=== PATIENT | male | born 1940 | race Caucasian/White ===

== ENCOUNTER 2023-08-12 06:47 | Outpatient (OUT) | payer MEDICARE, SELFPAY ==
[2023-08-12 07:02] LABS: Basophils Percent Auto 0.3 % (0.2-2.0); Eosinophils Absolute Auto 0.2 10^3/uL (0.0-0.7); Eosinophils Percent Auto 1.5 % (0.9-7.0); Hematocrit 48.7 % (42.0-54.0); Hemoglobin 16.2 g/dL (14.0-18.0); Immature Granulocytes Abs Auto 0.06 10^3/uL (0.00-0.03); Immature Granulocytes Pct Auto 0.5 % (0.0-0.5); Lymphocytes Absolute Auto 3.8 10^3/uL (1.2-3.8); Lymphocytes Percent Auto 32.4 % (20.5-60.0); Mean Corpuscular HGB Conc 33.3 g/dL (29.9-35.2); Mean Corpuscular Hemoglobin 32.3 pg (25.9-34.0); Mean Corpuscular Volume 97.2 fL (80.0-94.0); Monocytes Absolute Auto 0.9 10^3/uL (0.3-0.8); Monocytes Percent Auto 7.5 % (1.7-12.0); Neutrophils Absolute Auto 6.8 10^3/uL (1.4-6.5); Neutrophils Percent Auto 57.8 % (43.0-75.0); Platelet Count 233 10^3/uL (150-450); Red Blood Count 5.01 10^6/uL (4.70-6.10); Red Cell Distribution Width 13.2 % (11.0-15.0); White Blood Count 11.7 10^3/uL (4.0-11.0)
--- NOTE | 2023-08-12 07:03 | MR_ITS ---
[place] [id number] Patient Name: DAISY CARBAJAL MRN: [id number] date: 1940 Sex: M Assigned Patient Location: LAB Current Patient Location: LAB Accession/Order Number: [id number] Exam Date: 08/12/2023 07:10 Report Date: 08/12/2023 10:04 At the request of: JESSICA INIGUEZ Procedure: MR head/brain wo con MRI BRAIN WITHOUT CONTRAST, 08/12/2023. HISTORY: Dizziness. COMPARISON: None. TECHNIQUE: Multiplanar, multisequence MRI imaging of the brain without contrast. FINDINGS: Mild mucosal thickening of the paranasal sinuses. Mastoid air cells are clear. Nasopharynx is normal. Second Mate spaces are normal. Prior cataract surgery. There is loss of the flow void of the left internal carotid artery. Moderate generalized brain atrophy. No hydrocephalus. No extraaxial fluid collection. No mass effect. No shift of midline. Chronic lacunar infarction involving the right basal ganglia and right de la cruz radiata measures 1.7 cm in diameter. Moderate chronic microvascular ischemic changes in the periventricular white matter. No diffusion restriction. No acute ischemic infarction. No hemorrhagic lesions. No masses. MR/MR head/brain wo con IMPRESSION: 1. 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 2. Moderate generalized brain atrophy. No hydrocephalus. 3. Chronic lacunar infarction in the right basal ganglia and de la cruz radiata. 4. No acute infarction. No masses. Electronically authenticated by: KAVITHA BORGES Date: 08/12/2023 10:04
--- NOTE | 2023-08-12 07:03 | CT_ITS ---
[address] [address] Patient Name: DAISY CARBAJAL MRN: [id number] date: 1940 Sex: M Assigned Patient Location: LAB Current Patient Location: LAB Accession/Order Number: [id number] Exam Date: 08/12/2023 08:10 Report Date: 08/12/2023 09:12 At the request of: JESSICA INIGUEZ Procedure: CT angio neck EXAMINATION: CT angio neck HISTORY: Near Syncope R55 COMPARISON: No relevant comparison available. TECHNIQUE: Multiplanar CT imaging without and with IV contrast. Multi-planar/3-D imaging to optimize visualization of vascular anatomy. Percent stenosis is based on NASCET criteria. Dose reduction techniques were achieved by using automated exposure control and/or adjustment of mA and/or kV according to patient size and/or use of iterative reconstruction technique. FINDINGS: RIGHT INTERNAL CAROTID: Marked atherosclerotic narrowing of bulb and proximal ICA. EXTERNAL CAROTID: No hemodynamically significant stenosis or dissection. COMMON CAROTID: No hemodynamically significant stenosis or dissection. VERTEBRAL: Moderate atherosclerotic narrowing of proximal artery near origin. LEFT INTERNAL CAROTID: Complete occlusion of proximal, mid, and distal portions. EXTERNAL CAROTID: No hemodynamically significant stenosis or dissection. COMMON CAROTID: No hemodynamically significant stenosis or dissection. VERTEBRAL: No hemodynamically significant stenosis or dissection. OTHER: Moderate-marked cervical disc narrowing at C5-6, C6-7 and multilevel mild degenerative facet arthropathy resulting in bone encroachment on the neural foramen and central canal. CT/CT angio neck IMPRESSION: 1. Marked atherosclerotic narrowing of right carotid bulb and proximal ICA. 2. Complete occlusion of left ICA. 3. Moderate atherosclerotic narrowing of proximal right vertebral artery. Electronically authenticated by: MIGUEL ARIZA Date: 08/12/2023 09:12
[2023-08-12 08:04] LABS: Alanine Aminotransferase 23 U/L (16-63); Albumin Globulin Ratio 1.1; Alkaline Phosphatase 90 U/L (46-116); Anion Gap 12.6; Aspartate Amino Transferase 20 U/L (15-37); BUN Creatinine Ratio 9.6; Bilirubin Total 0.7 mg/dL (0.2-1.0); Calcium 8.9 mg/dL (8.5-10.1); Carbon Dioxide 30.6 mmol/L (21.0-32.0); Chloride 106 mmol/L (98-107); Estimated GFR (African America >60 (>=60); Estimated GFR (Non-African Ame >60 (>=60); Free Thyroxine Index 2.48 (1.30-4.50); Globulin 3.5 g/dL; Glucose 102 mg/dL (74-106); Potassium 4.2 mmol/L (3.5-5.1); Sodium 145 mmol/L (136-145); Thyroid Stimulating Hormone 5.068 uIU/mL (0.358-3.740); Total Protein 7.5 g/dL (6.4-8.2)
--- NOTE | 2023-08-12 08:43 | CA_ITS ---
[facility] Test Date: 2023-08-26 Pat Name: DAISY CARBAJAL Department: Room: - Gender: Male [employer]: : 1940 Requested By: JESSICA INIGUEZ Order Number: [id number] Reading MD: JANEL PANDA Interpretive Statements Predominant rhythm is atrial fibrillation with average rate of 81 bpm Tachycardia - max rate of 222 bpm Bradycardia - min rate of 33 bpm Ventricular ectopy - 123,977 total (16%) - 72,632 PVC - 46,320 couplets - 1,043 bigeminy - 2,321 trigeminy NSVT - 508 episodes with longest episode of 13 beats Patient triggered events: none Impression: - predominant rhythm is atrial fibrillation with frequent ventricular ectopy - fastest rate of 222 (NSVT) and slowest rate of 33 bpm - 123,977 ventricular ectopy w/ 16% burden - 508 episodes of NSVT w/ longest episode of 13 beats Electronically Signed On 08-27-2023 7:10:22 EDT by JANEL PANDA
== END 2023-08-12 06:48 | disposition home or self-care (01) ==
LOC: LAB 06:48
PROVIDERS: PCP Family Medicine; Visit Provider Family Medicine
DX: R55 Syncope and collapse (principal); I11.0 Hypertensive heart disease with heart failure; I50.30 Unspecified diastolic (congestive) heart failure; I65.22 Occlusion and stenosis of left carotid artery; I67.2 Cerebral atherosclerosis; I65.21 Occlusion and stenosis of right carotid artery
CPT/HCPCS: 36415; 70498; 70551; 80053; 83880; 84436; 84443; 84479; 85025; 93246; Q9967

== ENCOUNTER 2023-08-21 13:38 | Outpatient (OUT) | payer MEDICARE, SELFPAY ==
--- NOTE | 2023-08-21 14:12 | US_ITS ---
[place] [id number] Patient Name: DAISY CARBAJAL MRN: [id number] date: 1940 Sex: M Assigned Patient Location: CARD Current Patient Location: Accession/Order Number: [id number] Exam Date: 08/21/2023 14:30 Report Date: 08/24/2023 10:16 At the request of: ADEN MUNGUIA Procedure: US carotid duplex BI EXAMINATION: US carotid duplex BI HISTORY: Bilateral Carotid Stenosis, Near Syncope COMPARISON: CTA neck 08/12/2023 TECHNIQUE: Duplex Doppler ultrasound analysis of carotid and vertebral arteries. . Bilateral carotid arterial duplex examination was performed using B-mode, color flow and spectral analysis. Carotid stenosis is reported according to validated velocity parameters, similar to NASCET criteria. FINDINGS: RIGHT CAROTID ARTERY: Marked narrowing of internal carotid artery secondary to atherosclerotic plaque. RIGHT VERTEBRAL: Antegrade flow. Subclavian: PSV: 63.6 cm/s EDV: 0.0 cm/s CCA: Prox: PSV: 53.7 cm/s EDV: 15.3 cm/s Mid: PSV: 51.5 cm/s EDV: 20.8 cm/s Distal: PSV: 47.6 cm/s EDV: 20.6 cm/s BULB: PSV: 41.2 cm/s EDV: 14.2 cm/s ICA: Prox: PSV: 89.2 cm/s EDV: 32.2 cm/s Mid: PSV: 174.0 cm/s EDV: 64.8 cm/s Distal: PSV: 115.9 cm/s EDV: 46.2 cm/s ECA: PSV: 52.6 cm/s EDV: 10.9 cm/s VERTEBRAL: PSV: 36.2 cm/s EDV: 17.0 cm/s ICA/CCA ratio: PSV: 3.7 EDV: 3.2 LEFT CAROTID ARTERY: Complete occlusion of internal carotid artery secondary to atherosclerotic plaque. LEFT VERTEBRAL: Antegrade flow. Subclavian: PSV: 93.5 cm/s EDV: 6.6 cm/s CCA: Prox: PSV: 37.0 cm/s EDV: 6.4 cm/s Mid: PSV: 36.5 cm/s EDV: 6.9 cm/s Distal: PSV: 29.9 cm/s EDV: 6.9 cm/s BULB: PSV: 97.4 cm/s EDV: 9.5 cm/s ICA: Prox: PSV: 0.0 cm/s EDV: 0.0 cm/s Mid: PSV: EDV: Distal: PSV: EDV: ECA: PSV: 90.1 cm/s EDV: 11.1 cm/s VERTEBRAL: PSV: 55.1 cm/s EDV: 20.2 cm/s ICA/CCA ratio: PSV: 3.3 EDV: 1.4 US/US carotid duplex BI IMPRESSION: 1. Marked atherosclerotic narrowing of right internal carotid artery. Suspect greater than 70% flow stenosis. 2. 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 3. Findings correspond with recent CTA neck 08/12/2023. Electronically authenticated by: MIGUEL ARIZA Date: 08/24/2023 10:16
--- NOTE | 2023-08-21 14:12 | CA_ITS ---
Patient: DAISY CARBAJAL Exam Date: 08/21/2023 : 1940 Gender:M Ordering : DR TAHIR CHAVES M.D. Admission #: [id number] Family : JESSICA INIGUEZ . Order #: [id number] CLICK HERE TO VIEW EXAM ECHOCARDIOGRAM REPORT PROCEDURE: CA ECHO DOPPLER COMPLETE INDICATIONS: Near syncope, atrial fibrillation COMPARISON: None. DESCRIPTION: COMPLETE ECHOCARDIOGRAM Real-time transthoracic echocardiography with 2D, M-mode, spectral and color flow Doppler performed. QUALITY: Technical quality was adequate. LEFT VENTRICLE: Mild dilatation. Mild concentric left ventricular hypertrophy. There is global hypokinesis and severely reduced systolic function. LV EF: Severely reduced left ventricular ejection fraction, (25%). DIASTOLIC: Not adequately assessed due to heart rhythm. ATRIAL SEPTUM: Visually appears intact. LEFT ATRIUM: Moderate dilatation. RIGHT ATRIUM: Mild dilatation. RIGHT VENTRICLE: Mild dilatation. Normal systolic function. TRICUSPID VALVE: Normal mobility and thickness. No stenosis with trivial regurgitation. Doppler studies reveal mildly (35-45) elevated right sided pressures. RVSP 43 mmHg MITRAL VALVE: Normal mobility and thickness. No evidence of mitral valve stenosis. Mild mitral annular calcification. Mild mitral regurgitation. AORTIC VALVE: Normal trileaflet appearance. Thickened aortic valve. Normal leaflet mobility. No evidence of aortic valve stenosis. No aortic regurgitation. AORTIC ROOT: Normal diameter and appearance. PULMONIC VALVE: Normal thickness and mobility. No stenosis. No regurgitation. PERICARDIUM: No evidence of pericardial effusion. IVC: Normal in size. Collapses with inspirations. PLEURA: CONCLUSION: 1. Mild concentric left ventricular hypertrophy with severely reduced systolic function. LVEF is 25%. 2. Mildly dilated right ventricle with normal systolic function. 3. No significant valvular dysfunction. 4. Mild to moderate biatrial dilatation. 5. Mildly elevated right-sided pressures. RVSP is 43 mmHg. 6. The patient appears to be in atrial fibrillation during the exam. Adult Echocardiography Procedure Report Left Ventricle LVEDD (3.7 - 5.6 cm): 6.00 cm LVESD (2.2 - 4.0 cm): 4.76 cm LVIVS thickness (0.6 - 1.2 cm): 1.07 cm LVPW thickness (0.5 - 1.0 cm): 1.14 cm LVOT Max Gradient: 1.40 mm[Hg] LVOT Area (cm2): 0.59 m/s Peak Velocity (LVOT): 0.59 m/s LVOT Diameter 2.43 cm Left Atrium LA Volume Index (2D A2C): 64.36 ml/m2 Left Atrium Systolic Dimension: 4.49 cm Mitral Valve Mitral Valve E-Wave Peak Velocity: 0.97 m/s Right Ventricle Aorta AO Root Diam: 2.91 cm Aortic Valve AoV Area (Peak Reynaldo): 2.07 cm2, 2.07 cm2 Peak Velocity(Antegrade Flow): 1.32 m/s Peak Gradient(Antegrade Flow): 7.00 mm[Hg] Tricuspid Valve Peak Velocity (Regurgitant Flow): 3.18 m/s Pulmonic Valve Peak Velocity: 0.59 m/s Peak Gradient: 1.78 mm[Hg], 1.04 mm[Hg] Right Atrium Right Atrium Systolic Pressure: 85.31 ml, 85.31 ml Dictated by: Tahir Chaves M.D. on 08/21/2023 at 17:27 Approved by: Tahir Chaves M.D. on 08/21/2023 at 17:34
== END 2023-08-21 13:39 | disposition home or self-care (01) ==
LOC: CARD 13:38
PROVIDERS: PCP Family Medicine; Visit Provider Internal Medicine Interventional Cardiology
DX: R55 Syncope and collapse (principal); I65.23 Occlusion and stenosis of bilateral carotid arteries
CPT/HCPCS: 93306; 93880

== ENCOUNTER 2023-10-01 09:28 | Outpatient (OUT) | payer MEDICARE, SELFPAY ==
[2023-10-01 09:43] LABS: Basophils Percent Auto 0.3 % (0.2-2.0); Eosinophils Absolute Auto 0.2 10^3/uL (0.0-0.7); Eosinophils Percent Auto 1.5 % (0.9-7.0); Hematocrit 49.4 % (42.0-54.0); Hemoglobin 16.3 g/dL (14.0-18.0); Immature Granulocytes Abs Auto 0.03 10^3/uL (0.00-0.03); Immature Granulocytes Pct Auto 0.2 % (0.0-0.5); Lymphocytes Percent Auto 33.2 % (20.5-60.0); Mean Corpuscular Hemoglobin 31.9 pg (25.9-34.0); Mean Corpuscular Volume 96.7 fL (80.0-94.0); Mean Platelet Volume 10.9 fL (9.5-13.5); Monocytes Absolute Auto 0.9 10^3/uL (0.3-0.8); Neutrophils Percent Auto 57.8 % (43.0-75.0); Platelet Count 239 10^3/uL (150-450); Red Blood Count 5.11 10^6/uL (4.70-6.10); Red Cell Distribution Width 12.9 % (11.0-15.0); White Blood Count 12.1 10^3/uL (4.0-11.0)
[2023-10-01 10:00] LABS: Anion Gap 11.4; BUN Creatinine Ratio 7.8; Calcium 8.7 mg/dL (8.5-10.1); Carbon Dioxide 31.2 mmol/L (21.0-32.0); Chloride 104 mmol/L (98-107); Estimated GFR (African America >60 (>=60); Estimated GFR (Non-African Ame >60 (>=60); Glucose 104 mg/dL (74-106); Potassium 4.6 mmol/L (3.5-5.1); Sodium 142 mmol/L (136-145)
== END 2023-10-01 09:29 | disposition home or self-care (01) ==
LOC: LAB 09:29
PROVIDERS: PCP Family Medicine; Visit Provider Internal Medicine Interventional Cardiology
DX: I65.23 Occlusion and stenosis of bilateral carotid arteries (principal)
CPT/HCPCS: 36415; 80048; 85025

== ENCOUNTER 2023-11-25 08:56 | Outpatient (OUT) | payer MEDICARE, SELFPAY ==
--- OUTSIDE RECORDS SUMMARY | 2023-11-25 09:04 | XMS_ITS | CCD ---
Author Name Unknown Address Formerly [facility] [address] [id number] [place] [address] Organization [facility] Care Team Providers Care Entry Clerk Name Role Phone VIVIANE SANTIAGO Consulting Unavailable JESSICA DELATORRE Primary Care Unavailable MIKE MURRAY Admitting Unavailable MIKE MURRAY Attending Unavailable MIKE MURRAY Consulting Unavailable ROHIT RAWLS I Consulting Unavailable PARVIZ ANNA Consulting Unavailable Jessica Delatorre Primary Care Provider [phone] GEETHA ., DR LOPEZ Attending Unavailable GEETHA ., DR LOPEZ Consulting Unavailable GEETHA ., DR LOPEZ Primary Care Unavailable GEETHA ., DR LOPEZ Admitting Unavailable ADEN MUNGUIA Referring Unavailable ADEN MUNGUIA Admitting Unavailable ADEN MUNGUIA Attending Unavailable ADEN MUNGUIA Admitting Unavailable ADEN MUNGUIA Attending Unavailable ADEN MUNGUIA Attending Unavailable MIKE CABRERA Attending Unavailable ADEN MUNGUIA Referring Unavailable Medications Current Medications Medication Drug Class(es) Dates Sig (Normalized) Sig (Original) acetaminophen 325 mg oral tablet (1 source) Start: 08-24-2020 acetaminophen (TYLENOL) tablet 650 mg albuterol 1 mg/ml inhalant solution (1 source) beta2-Adrenergic Agonist Start: 08-24-2020 albuterol (PROVENTIL) nebulizer solution 5 mg aspirin 81 mg chewable tablet (2 sources) Platelet Aggregation Inhibitor, Nonsteroidal Anti-inflammatory Drug Start: 08-27-2020 take 1 tablet by mouth once daily aspirin 81 MG chewable tablet Take 1 tablet by mouth daily 30 tablet 3 08/27/2020 Active Start: 08-26-2020 aspirin chewab le tablet 81 mg atorvastatin 80 mg oral tablet (2 sources) HMG-CoA Reductase Inhibitor Start: 08-25-2020 take 1 tablet by mouth once daily atorvastatin (LIPITOR) 80 MG tablet Take 1 tablet by mouth nightly 30 tablet 3 08/26/2020 Active 0.4 ml enoxaparin sodium 100 mg/ml prefilled syringe (1 source) Low Molecular Weight Heparin Start: 08-26-2020 enoxaparin (LOVENOX) injection 40 mg 4 ml labetalol hydrochloride 5 mg/ml cartridge (1 source) beta-Adrenergic Mariah Start: 08-25-2020 labetalol (NORMODYNE;TRANDATE) injection 10 mg perflutren lipid microspheres (DEFINITY) injection 1.65 mg (1 source) Start: 08-25-2020 1.65 mg (1.5 mL), Intravenous, IMG ONCE PRN, Other, Inability to detect 2 or more contiguous segments in any of the 3 apical views due to poor endocardial border definition, Starting 08/25/20 at 0700, For 1 dose Echocardiogram should first be performed without contrast and if exam is adequate then DO NOT administer the contrast and delete the order using Per Protocol order mode. If unable to detect 2 or more contiguous segments in any of the 3 apical views due to poor endocardial border definition, then assess patient for any contraindications to echo contrast and if none present administer the echo contrast. polyethylene glycol 3350 64718 mg powder for oral solution (1 source) Osmotic Laxative Start: 08-25-2020 17 g, Oral, DAILY PRN, Constipation, Starting 08/25/20 at 0700 First line therapy for constipation Promethazine (1 source) Phenothiazine Start: 08-25-2020 promethazine (PHENERGAN) tablet 12.5 mg 3 ml sodium chloride 9 mg/ml injection (3 sources) Start: 08-25-2020 10 mL, Intravenous, EVERY 12 HOURS SCHEDULED (2 times per day), First dose on 08/25/20 at 0900 Start: 08-25-2020 take 10 mL intraveno us route once as needed 10 mL, Intravenous, PRN, Line Care, After every IV line use, Starting 08/25/20 at 0700 Start: 08-24-2020 End: 08-26-2020 0.9 % sodium chloride infusi on Completed/Discontinued Medications Medication Drug Class(es) Dates Sig (Normalized) Sig (Original) clopidogrel 75 mg oral tablet (3 sources) P2Y12 Platelet Inhibitor Start: 08-27-2020 End: 08-26-2020 take 1 tablet by mouth once daily clopidogrel (PLAVIX) 75 MG tablet Take 1 tablet by mouth daily 30 tablet 3 08/27/2020 08/26/2020 Discontinued Start: 08-26-2020 End: 11-25-2020 take 1 tablet by mouth once daily clopidogrel (PLAVIX) 75 MG tablet Take 1 tablet by mouth daily 30 tablet 2 08/27/2020 11/25/2020 Active iodixanol (VISIPAQUE) injection 100 mL (1 source) Start: 08-24-2020 End: 08-24-2020 iodixanol (VISIPAQUE) injection 100 mL iopamidol (ISOVUE-370) 76 % injection 50 mL (1 source) Start: 08-24-2020 End: 08-24-2020 iopamidol (ISOVUE-370) 76 % injection 50 mL iopamidol (ISOVUE-370) 76 % injection 90 mL (1 source) Start: 08-24-2020 End: 08-24-2020 iopamidol (ISOVUE-370) 76 % injection 90 mL methylPREDNISolone 125 mg injection (1 source) Corticosteroid Start: 08-24-2020 End: 08-24-2020 methylPREDNISolone sodium (SOLU-MEDROL) injection 125 mg 2 ml ondansetron 2 mg/ml injection (1 source) Serotonin-3 Receptor Antagonist Start: 08-24-2020 End: 08-24-2020 ondansetron (ZOFRAN) injection 4 mg microencapsulated potassium chloride 20 meq extended release oral tablet (1 source) Start: 08-25-2020 End: 08-25-2020 potassium chloride (KLOR-CON M) extended release tablet 40 mEq Problems Active Problems Problem Classification Problem Date Documented Date Episodic/Chronic Acute cerebrovascular disease (6 sources) Cerebrovascular accident; Translations: [Ischemic stroke] Onset: 08-14-2023 08-25-2020 Chronic Acute cerebrovascular disease (2 sources) Acute stroke; Translations: [Acute cerebrovascular accident (CVA)] Onset: 08-24-2020 08-24-2020 Cardiac dysrhythmias (2 sources) Paroxysmal atrial fibrillation; Translations: [Paroxysmal atrial fibrillation] Onset: 10-08-2023 Chronic Congestive heart failure; nonhypertensive (2 sources) Acute systolic (congestive) heart failure; Translations: [Acute systolic (congestive) heart failure] Onset: 08-28-2023 Chronic Occlusion or stenosis of precerebral arteries (6 sources) Left carotid artery occlusion; Translations: [Right carotid artery stenosis] Onset: 08-28-2023 08-25-2020 Chronic Syncope (2 sources) Syncope and collapse; Translations: [Syncope and collapse] Onset: 08-28-2023 Episodic Unclassified (2 sources) Finding related to cerebral function; Translations: [Nihss score 17] 08-25-2020 Unclassified (1 source) Other ventricular tachycardia; Translations: [Other ventricular tachycardia] Onset: 08-28-2023 Unclassified (2 sources) Other persistent atrial fibrillation; Translations: [Other persistent atrial fibrillation] Onset: 08-14-2023 Past or Other Problems Problem Classification Problem Date Documented Da te Episodic/Chronic Unclassified (1 source) Other ventricular tachycardia; Translations: [Other ventricular tachycardia] Onset: 10-08-2023 Results Test Name Value Interpretation Reference Range Facility Orders Onlyon 11-24-2023 Orders Only [id number] Daisy Zuñiga Sr. 1940 M Date Provider Department Center 11/24/2023 [facility] Family History Problem Relation Age of Onset Heart disease Mother Heart disease Sister Heart disease Brother Family Status - Relation Status Age at Mother Father Sister Alive Brother Alive Normal [facility] Office Visiton 10-20-2023 Follow-up visit [id number] Daisy Zuñiga Sr. 1940 M Date Provider Department Center 10/20/2023 MIKE SNOW [facility] Family History Problem Relation Age of Onset Heart disease Mother Heart disease Sister Heart disease Brother Family Status - Relation Status Age at Mother Father Sister Alive Brother Alive Level of Service:72664 [place] OFFICE/OUTPATIENT NEW MODERATE MDM 45 MINUTES Normal [facility] Orders Onlyon 10-20-2023 Orders Only [id number] Daisy Zuñiga Sr. 1940 M Date Provider Department Center 10/20/2023 CLARISSE NIELSEN [facility] Family History Problem Relation Age of Onset Heart disease Mother Heart disease Sister Heart disease Brother Family Status - Relation Status Age at Mother Father Sister Alive Brother Alive Normal [facility] HPon 10-08-2023 HP History Of Present Illness Daisy B Yogesh Sr. is a 83 y.o. male presenting for planned coronary angiogram, carotid angiography and RHC. 83-year-old man w/ PMHx of recent stroke, acute HFrEF, carotid disease. In August 2020 he was admitted to [facility] with left-sided hemiplegia and treated with tPA. He underwent thrombectomy of right M1 MCA. 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 At that time his echocardiogram showed no evidence of intracardiac shunt with an ejection fraction of 60%. His LDL was 73. following that he was prescribed dual antiplatelet therapy with aspirin and Plavix. in addition he was given statin therapy. He was seen by neurology in follow-up in December 2020 as was recommended to stop Plavix and continue aspirin therapy. He reports that he has recovered most of his left-sided motor function. He did reasonably well until recently when he started developing symptoms of near syncope while he is sitting. The symptoms consist of feeling strange in the head with an impending loss of consciousness for which he starts tensing his arms in order to fight. He did not lose consciousness at any time. He denies associated tingling sensations or new motor weakness. He also denies chest pain. He does have some fatigue with exertion but no shortness of breath. He was started on Plavix after seeing Dr. Delatorre 2 months ago, who also ordered multiple testing including a holter monitor that he is wearing as well as CT angiogram of the carotids. Recent studies showed EF 25%, occluded L ICA, and severe R ICA stenosis. Past Medical History He has no past medical history on file. Surgical History He has no past surgical history on file. Social History He reports that he has been smoking cigarettes. He started smoking about 60 years ago. He has been smoking an average of .75 packs per day. He has never used smokeless tobacco. He reports that he does not currently use alcohol. He reports that he does not use drugs. Family History Family History Problem Relation Name Age of Onset Heart disease Mother Heart disease Sister Heart disease Brother Allergies Patient has no known allergies. Medications Medications Prior to Admission Medication Sig Dispense Refill Last Dose apixaban (Eliquis) 5 mg tablet Take 1 tablet (5 mg) by mouth in the morning and at bedtime. 180 tablet 3 Past Week aspirin 81 mg chewable tablet Chew 1 tablet in the morning. 10/07/2023 atorvastatin (Lipitor) 40 mg tablet Take 1 tablet by mouth at bedtime. 10/07/2023 Review of Systems Constitutional: Positive for malaise/fatigue. Eyes: Positive for blurred vision. Neurological: Positive for dizziness and light-headedness. Last Recorded Vitals Visit Vitals BP (!) 142/91 Resp 18 SpO2 100% Smoking Status Every Day Physical Exam Constitutional: Appearance: He is well-developed. He is not ill-appearing. HENT: Head: Normocephalic and atraumatic. Nose: Nose normal. Eyes: General: No scleral icterus. Pupils: Pupils are equal, round, and reactive to light. Neck: Thyroid: No thyromegaly. Vascular: No JVD. Cardiovascular: Rate and Rhythm: Normal rate. Rhythm irregularly irregular. Pulses: Radial pulses are 2+ on the right side and 2+ on the left side. Heart sounds: Normal heart sounds. No murmur heard. No friction rub. No gallop. Pulmonary: Effort: Pulmonary effort is normal. No respiratory distress. Breath sounds: Normal breath sounds. No wheezing or rales. Chest: Chest wall: No tenderness. Abdominal: General: Bowel sounds are normal. There is no distension. Palpations: Abdomen is soft. Tenderness: There is no abdominal tenderness. Musculoskeletal: General: No swelling. Cervical back: Neck supple. Skin: General: Skin is warm and dry. Neurological: General: No focal deficit present. Mental Status: He is alert and oriented to person, place, and time. Psychiatric: Mood and Affect: Mood normal. Behavior: Behavior is cooperative. Judgment: Judgment normal. Relevant Lab Results Lab Results Component Value Date BUN 11 08/12/2023 GLUCOSE 102 08/12/2023 Recent Labs 08/12/2023: Hemoglobin 16.2, platelets 233, potassium 4.2, BUN 11, creatinine 1.14, EGFR more than 60, LFTs normal, NT proBNP 1712, TSH 5.06, free T4 2.48. Lipids 02/12/2023: Cholesterol 128, HDL 66, triglycerides 65, LDL 49. Imaging and other tests ECG today 08/14/2023: Atrial fibrillation, nonspecific ST abnormalities, heart rate 86. Carotid duplex 11/29/2020: Right: Plaque with significant spectral Doppler/color flow disturbances; ICA Velocity 236/63 cm/sec, ICA/CCA Ratio 3.2. Antegrade vertebral artery flow. Left: Mixed echogenic intraluminal ICA content without spectral or color-flow Doppler. Antegrade vertebral artery flow. Conclusions: RIGHT: 50-69% stenosis of the internal carotid artery. Antegra (more content not included)... [facility] NURSNOTEon 10-08-2023 NURSNOTE RN educated pt on d/ c instructions. RN encouraged pt to voice any questions or concerns. Pt verbalizes no questions or concerns at this time. [facility] NURSNOTE Dr Munguia notifie d that patient is currently stating that there is no way he is staying for 6 hours for recovery and that he may leave after 3 hours. RN educated patient that he needs to stay for 6 hours post sheath pull to decrease the risk of bleeding. Patient continues to argue with RN about discharge time. Will continue to educate patient as the day goes on. [facility] Orders Onlyon 09-30-2023 Orders Only [id number] Daisy Zuñiga Sr. 1940 Date Provider Department [place] 09/30/2023 [facility] VAS LAB ID HeartVAS Family History Problem Relation Age of Onset Heart disease Mother Heart disease Sister Heart disease Brother Family Status - Relation Status Age at Mother Father Sister Alive Brother Alive [facility] ANESon 09-01-2023 ANES - Attestation signed by Aden Munguia MD at 09/02/2023 7:21 PM By using the attestations below, the signing clinician agrees that I have read and verify that the documentation has been personally reviewed by me and ensure that the documentation accurately reflects the encounter. Office Visit Attestation GC: I personally saw this patient on the day of the encounter, performed the nicole portion(s) of the service and participated in the management and confirm the documentation by the Cardiovascular Fellow Dr Fely Sullivan. Please note there may be an additional personal documentation from me. Aden Munguia MD Patient: Daisy Zuñiga Sr. Procedure Information Date/Time: 09/01/23 1130 Procedures: Coronary angiography (Bilateral) Carotid angiogram (Bilateral) - w/ possible intervention Location: [facility] 3 / [facility]ASCULAR [facility] (Cath) Providers: Aden Munguia MD Clinical information reviewed: [employer] Physical Exam Airway Cardiovascular Rhythm: irregular Rate: normal Dental Pulmonary Breath sounds clear to auscultation Abdominal Anesthesia Plan ASA 3 other (Moderate sedation) Anesthetic plan and risks discussed with patient. Use of blood products discussed with patient who consented to blood products. Plan discussed with fellow and attending. Additional Equipment Requests Normal [facility] HPon 09-01-2023 HP - Attestation signed by Aden Munguia MD at 09/02/2023 7:17 PM The patient decided to leave and reschedule due to delay in the procedure time. He was recommended against this however he insisted on leaving. We will reschedule for another date. H&P reviewed. The patient was examined and there are no changes to the H&P. Normal [facility] Orders Onlyon 08-28-2023 Orders Only [id number] Daisy Zuñiga 1940 Date Provider Department Center 08/28/2023 LEFTY DRISCOLL [place] Family History Problem Relation Age of Onset Heart disease Mother Heart disease Sister Heart disease Brother Family Status - Relation Status Age at Mother Father Sister Alive Brother Alive [place] 08-14-2023 [facility] Cardiology [facility] Subjective Daisy Zuñiga is a 83 y.o. year old male patient being seen for New Patient and Carotid Artery Disease Patient Active Problem List Diagnosis Acute cerebrovascular accident (CVA) ([facility]) Carotid stenosis, right Nihss score 17 Occlusion of left carotid artery Acute ischemic right middle cerebral artery (MCA) stroke (CMS/HCC) Family History Problem Relation Name Age of Onset Heart disease Mother Heart disease Sister Heart disease Brother Social History Tobacco Use Smoking status: Every Day Packs/day: 0.75 Types: Cigarettes Start date: 1961 Smokeless tobacco: Never Substance Use Topics Alcohol use: Not Currently Comment: not often Drug use: Never HPI Daisy is seen as a new patient, referred from Dr. Delatorre's office for carotid disease. He is an 83-year-old man. In August 2020 he was admitted to [facility] with left-sided hemiplegia and treated with tPA. He underwent thrombectomy of right M1 MCA. 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 At that time his echocardiogram showed no evidence of intracardiac shunt with an ejection fraction of 60%. His LDL was 73. following that he was prescribed dual antiplatelet therapy with aspirin and Plavix. in addition he was given statin therapy. He was seen by neurology in follow-up in December 2020 as was recommended to stop Plavix and continue aspirin therapy. He reports that he has recovered most of his left-sided motor function. He did reasonably well until recently when he started developing over the past 2 weeks symptoms of near syncope while he is sitting. The symptoms consist of feeling strange in the head with an impending loss of consciousness for which he starts tensing his arms in order to fight. He did not lose consciousness at any time. He denies associated tingling sensations or new motor weakness. He also denies chest pain. He does have some fatigue with exertion but no shortness of breath. He was started on Plavix after seeing Dr. Delatorre 4 days ago, who also ordered multiple testing including a holter monitor that he is wearing as well as CT angiogram of the carotids. Review of Systems Constitutional: Positive for malaise/fatigue. Eyes: Positive for blurred vision. Neurological: Positive for dizziness and light-headedness. Objective Visit Vitals BP (!) 144/93 Pulse 64 Ht 1.829 m (6') Wt 125 kg (275 lb) SpO2 97% BMI 37.30 kg/m??? Smoking Status Every Day BSA 2.52 m??? Physical Exam Constitutional: Appearance: He is well-developed. He is not ill-appearing. HENT: Head: Normocephalic and atraumatic. Nose: Nose normal. Eyes: General: No scleral icterus. Pupils: Pupils are equal, round, and reactive to light. Neck: Thyroid: No thyromegaly. Vascular: No JVD. Cardiovascular: Rate and Rhythm: Normal rate. Rhythm irregularly irregular. Pulses: Radial pulses are 2+ on the right side and 2+ on the left side. Heart sounds: Normal heart sounds. No murmur heard. No friction rub. No gallop. Pulmonary: Effort: Pulmonary effort is normal. No respiratory distress. Breath sounds: Normal breath sounds. No wheezing or rales. Chest: Chest wall: No tenderness. Abdominal: General: Bowel sounds are normal. There is no distension. Palpations: Abdomen is soft. Tenderness: There is no abdominal tenderness. Musculoskeletal: General: No swelling. Cervical back: Neck supple. Skin: General: Skin is warm and dry. Neurological: General: No focal deficit present. Mental Status: He is alert and oriented to person, place, and time. Psychiatric: Mood and Affect: Mood normal. Behavior: Behavior is cooperative. Judgment: Judgment normal. Allergies No Known Allergies Medications Current Outpatient Medications: aspirin 81 mg chewable tablet, Chew 1 tablet in the morning., Disp: , Rfl: atorvastatin (Lipitor) 40 mg tablet, Take 1 tablet by mouth at bedtime., Disp: , Rfl: apixaban (Eliquis) 5 mg tablet, Take 1 tablet (5 mg) by mouth in the morning and at bedtime., Disp: 180 tablet, Rfl: 3 Recent Labs 08/12/2023: Hemoglobin 16.2, platelets 233, potassium 4.2, BUN 11, creatinine 1.14, EGFR more than 60, LFTs normal, NT proBNP 1712, TSH 5.06, free T4 2.48. Lipids 02/12/2023: Cholesterol 128, HDL 66, triglycerides 65, LDL 49. Imaging and other tests ECG today 08/14/2023: Atrial fibrillation, nonspecific ST abnormalities, heart rate 86. Carotid duplex 11/29/2020: Right: Plaque with significant spectral Doppler/color flow disturbances; ICA Velocity 236/63 cm/sec, ICA/CCA Ratio 3.2. Antegrade vertebral artery flow. Left: Mixed echogenic intraluminal ICA content without spectral or color-flow Doppler. Antegrade vertebral artery flow. Conclusions: RIGHT: 50-69% stenosis of the internal carotid artery. Antegrade vertebral artery flow. LE (more content not included)... Normal [facility] Office Visiton 08-14-2023 Follow-up visit [id number] Daisy Zuñiga 1940 M Date Provider Department Center 08/14/2023 ADEN FERNANDEZ [place] Family History Problem Relation Age of Onset Heart disease Mother Heart disease Sister Heart disease Brother Family Status - Relation Status Age at Mother Father Sister Alive Brother Alive Level of Service:92066 [place] OFFICE/OUTPATIENT NEW HIGH MDM 60-74 MINUTES Reason for Visit and Comments: New Patient [632] Carotid Artery Disease [453] Normal [facility] INSULINon 02-13-2023 Insulin 11.5 uIU/mL Normal 2.6-24.[address] [facility] Comment on above: Performed By: #### I NSULIN #### [facility] [address] [address] [address] Rebel Victoria CBC AUTO DIFFon 02-12-2023 BASO # 0.0 103/ul Normal 0.0-0.[address] [facility] Comment on above: Performed By: #### C BC #### [facility] [address] [place], [place] [address] Dr. Rebel Victoria Basophils/100 WBC (Bld) 0.4 % Normal 0.2-2.[address] [facility] Comment on above: Performed By: #### C BC #### [facility] [address] [place] [address] Dr. Rebel Victoria EO # 0.3 103/ul Normal 0.0-0.[address] [facility] Comment on above: Performed By: #### C BC #### [facility] [address] [place] [address] Dr. eRbel Victoria Eosinophils/100 WBC (Bld) 3.2 % Normal 0.9-7.[address] [facility] Comment on above: Performed By: #### C BC #### [facility] [address] [place] [address] Dr. Rebel Victoria Erythrocyte distribution width (RBC) [Ratio] 13.4 % Normal 11.0-15.[address] [facility] Comment on above: Performed By: #### C BC #### [facility] [address] [place] [address] Dr. Rebel Victoria Hematocrit (Bld) [Volume fraction] 47.6 % Normal 42.0-54.[address] [facility] Comment on above: Performed By: #### C BC #### [facility] [address] [place] [address] Dr. Rebel Victoria Hemoglobin (Bld) [Mass/Vol] 15.8 g/dL Normal 14.0-18.[address] [facility] Comment on above: Performed By: #### C BC #### [facility] [address] [place] [address] Dr. Rebel Victoria IG # 0.04 10e3/ul Critically high 0.00-0.03 [facility] Comment on above: Performed By: #### C BC #### [facility] [address] [place] [address] Dr. Rebel Victoria IG % 0.4 % Normal 0.0-0.[address] [facility] Comment on above: Performed By: #### C BC #### [facility] [address] [place] [address] Dr. Rebel Victoria LYMPH # 3.9 103/ul Critically high 1.2-3.8 [facility] Comment on above: Performed By: #### C BC #### [facility] [address] [place] [address] Dr. Rebel Victoria Lymphocytes/100 WBC (Bld) 37.3 % Normal 20.5-60.[address] [facility] Comment on above: Performed By: #### C BC #### [facility] [address] [place] [address] Dr. Rebel Victoria MANUAL DIFF REQ NO Normal [facility] Comment on above: Performed By: #### C BC #### [facility] [address] [place] [address] Dr. Rebel Victoria MCH (RBC) [Entitic mass] 31.6 pg Normal 25.9-34.[address] [facility] Comment on above: Performed By: #### C BC #### [facility] [address] [place] [address] Dr. Rebel Victoria MCHC (RBC) [Mass/Vol] 33.2 g/dL Normal 29.9-35.[address] [facility] Comment on above: Performed By: #### C BC #### [facility] [address] [place] [address] Dr. Rebel Victoria MCV (RBC) [Entitic vol] 95.2 fL Critically high 80.0-94.[address] [facility] Comment on above: Performed By: #### C BC #### [facility] [address] [place] [address] Dr. Rebel Victoria MONO # 0.9 103/ul Critically high 0.3-0.8 [facility] Comment on above: Performed By: #### C BC #### [facility] [address] [place] [address] Dr. Rebel Victoria Monocytes/100 WBC (Bld) 8.6 % Normal 1.7-12.0 [facility] Comment on above: Performed By: #### C BC #### [facility] [address] [place] [address] Dr. Rebel Victoria NEUT # 5.2 103/ul Normal 1.4-6.5 [facility] Comment on above: Performed By: #### C BC #### [facility] [address] [address] [address] Rebel Victoria Neutrophils/100 WBC (Bld) 50.1 % Normal 43.0-75.[address] [facility] Comment on above: Performed By: #### C BC #### [facility] [address] [address] [address] Rebel Victoria Platelet mean volume (Bld) [Entitic vol] 10.9 fL Normal 9.5-13.5 [facility] Comment on above: Performed By: #### C BC #### [facility] [address] [place] [address] Dr. Rebel Victoria PLT 237 103/ul Normal 150-450 [facility] Comment on above: Performed By: #### C BC #### [facility] [address] [place] [address] Dr. Rebel Victoria RBC 5.00 106/ul Normal 4.70-6.10 [facility] Comment on above: Performed By: #### C BC #### [facility] [address] [place] [address] Dr. Rebel Victoria WBC 10.4 103/ul Normal 4.0-11.0 [facility] Comment on above: Performed By: #### C BC #### [facility] [address] [place] [address] Dr. Rebel Victoria FREE THYROXINE INDEX T7on FTI 2.63 Normal 1.30-4.50 [facility] Comment on above: Performed By: #### C MP, LIPID, TSH, T7, URIC #### [facility] [address] [place] [address] Dr. Rebel Victoria T3U 36.0 % Normal 33.0-40.0 [facility] Comment on above: Performed By: #### C MP, LIPID, TSH, T7, URIC #### [facility] [address] [place] [address] Dr. Rebel Victoria T4 [Mass/Vol] 7.30 ug/dL Normal 4.50-12.10 [facility] Comment on above: Performed By: #### C MP, LIPID, TSH, T7, URIC #### [facility] [address] [address] [address] Rebel Victoria GLYCOHEMOGLOBIN A1Con 2022 ADA RECOMMENDATION SEE BELOW Normal [facility] Comment on above: Result Comment: ADA RECOMMENDED LIMIT 4.0 - 6.0 ADA THERAPEUTIC TARGET < 7.0 ACTION SUGGESTED > 7.0 Performed By: #### A 1C #### [facility] [address] [place] [address] Dr. Rebel Victoria HbA1c (Bld) [Mass fraction] 5.6 % Normal 4.5-6.[address] [facility] Comment on above: Performed By: #### A 1C #### [facility] [address] [place] [address] Dr. Rebel Victoria LIPID PROFILEon 02-12-2023 CHOL-HDL RATIO NORM SEE BELOW Normal [facility] Comment on above: Result Comment: 3.3 - 4.4 LOW RISK 4.4 - 7.1 AVERAGE RISK 7.1 - 11.0 MODERATE RISK >11.0 HIGH RISK Performed By: #### C MP, LIPID, TSH, T7, URIC #### [facility] [address] [place] [address] Dr. Rebel Victoria Cholesterol [Mass/Vol] 128 mg/dL Normal <=[address] [facility] Comment on above: Performed By: #### C MP, LIPID, TSH, T7, URIC #### [facility] [address] [address] [address] Rebel Victoria Cholesterol in HDL [Mass/Vol] 66 mg/dL Critically high 40-[address] [facility] Comment on above: Performed By: #### C MP, LIPID, TSH, T7, URIC #### [facility] [address] [place] [address] Dr. Rebel Victoria Cholesterol in LDL [Mass/Vol] 49.0 mg/dL Normal [facility] Comment on above: Performed By: #### C MP, LIPID, TSH, T7, URIC #### [facility] [address] [place] [address] Dr. Rebel Victoria Cholesterol.total/Ch olesterol in HDL [Mass ratio] 1.9 {ratio} Normal [facility] Comment on above: Performed By: #### C MP, LIPID, TSH, T7, URIC #### [facility] [address] [address] [address] Rebel Victoria HDL NORMAL > or = 60 mg/dl - LO W CARDIOVASCULAR RISK <40 mg/dl - HIGH CARDIOVASCULAR RISK Normal [facility] Comment on above: Performed By: #### C MP, LIPID, TSH, T7, URIC #### [facility] [address] [address] [address] Rebel Victoria LDL CALC NORMAL SEE BELOW Normal [facility] Comment on above: Result Comment: <100 mg/dl OPTIMAL 100 - 129 mg/dl NEAR OR ABOVE OPTIMAL 130 - 159 mg/dl BORDERLINE HIGH 160 - 189 mg/dl HIGH >190 mg/dl VERY HIGH Performed By: #### C MP, LIPID, TSH, T7, URIC #### [facility] [address] [address] [address] Rebel Victoria Triglyceride [Mass/Vol] 65 mg/dL Normal <=[address] [facility] Comment on above: Performed By: #### C MP, LIPID, TSH, T7, URIC #### [facility] [address] [address] [address] Rebel Victoria VLDL CALC 13.0 mg/dL Normal [facility] Comment on above: Performed By: #### C MP, LIPID, TSH, T7, URIC #### [facility] [address] [address] [address] Rebel Victoria PROF 14(COMP METB)on 023 Albumin [Mass/Vol] 3.9 g/dL Normal 3.4-5.0 [facility] Comment on above: Performed By: #### C MP, LIPID, TSH, T7, URIC #### [facility] [address] [place] [address] Dr. Rebel Victoria Albumin/Globulin [Mass ratio] 1.1 {ratio} Normal [facility] Comment on above: Performed By: #### C MP, LIPID, TSH, T7, URIC #### [facility] [address] [place] [address] Dr. Rebel Victoria ALP [Catalytic activity/Vol] 102 U/L Normal 46-[address] [facility] Comment on above: Performed By: #### C MP, LIPID, TSH, T7, URIC #### [facility] [address] [place] [address] Dr. Rebel Victoria ALT [Catalytic activity/Vol] 22 U/L Normal 16-[address] [facility] Comment on above: Performed By: #### C MP, LIPID, TSH, T7, URIC #### [facility] [address] [place] [address] Dr. Rebel Victoria Anion gap [Moles/Vol] 9.5 mmol/L Normal [facility] Comment on above: Performed By: #### C MP, LIPID, TSH, T7, URIC #### [facility] [address] [place] [address] Dr. Rebel Victoria AST [Catalytic activity/Vol] 19 U/L Normal 15-[address] [facility] Comment on above: Performed By: #### C MP, LIPID, TSH, T7, URIC #### [facility] [address] [place] [address] Dr. Rebel Victoria Bilirubin [Mass/Vol] 0.9 mg/dL Normal 0.2-1.[address] [facility] Comment on above: Performed By: #### C MP, LIPID, TSH, T7, URIC #### [facility] [address] [place] [address] Dr. Rebel Victoria Calcium [Mass/Vol] 9.3 mg/dL Normal 8.5-10.1 [facility] Comment on above: Performed By: #### C MP, LIPID, TSH, T7, URIC #### [facility] [address] [place] [address] Dr. Rebel Victoria Chloride [Moles/Vol] 107 mmol/L Normal 98-[address] [facility] Comment on above: Performed By: #### C MP, LIPID, TSH, T7, URIC #### [facility] [address] [place] [address] Dr. Rebel Victoria CO2 [Moles/Vol] 29.8 mmol/L Normal 21.0-32.0 [facility] Comment on above: Performed By: #### C MP, LIPID, TSH, T7, URIC #### [facility] [address] [address] [address] Rebel Victoria Creatinine [Mass/Vol] 1.09 mg/dL Normal 0.70-1.[address] [facility] Comment on above: Performed By: #### C MP, LIPID, TSH, T7, URIC #### [facility] [address] [place] [address] Dr. Rebel Victoria EGFR-AF TONGAN >60 Normal >=60 [facility] Comment on above: Performed By: #### C MP, LIPID, TSH, T7, URIC #### [facility] [address] [place] [address] Dr. Rebel Victoria EGFR-NON AF TONGAN >60 Normal >=[address] [facility] Comment on above: Performed By: #### C MP, LIPID, TSH, T7, URIC #### [facility] [address] [place] [address] Dr. Rebel Victoria Globulin (S) [Mass/Vol] 3.7 g/dL Normal [facility] Comment on above: Performed By: #### C MP, LIPID, TSH, T7, URIC #### [facility] [address] [place] [address] Dr. Rebel Victoria Glucose [Mass/Vol] 114 mg/dL Normal [facility] Comment on above: Performed By: #### C MP, LIPID, TSH, T7, URIC #### [facility] [address] [place] [address] Dr. Rebel Victoria Performed By: #### A 1C #### [facility] [address] [place] [address] Dr. Rebel Victoria Potassium [Moles/Vol] 4.3 mmol/L Normal 3.5-5.[address] [facility] Comment on above: Performed By: #### C MP, LIPID, TSH, T7, URIC #### [facility] [address] [place] [address] Dr. Rebel Victoria Protein [Mass/Vol] 7.6 g/dL Normal 6.4-8.2 [facility] Comment on above: Performed By: #### C MP, LIPID, TSH, T7, URIC #### [facility] [address] [place] [address] Dr. Rebel Victoria Sodium [Moles/Vol] 142 mmol/L Normal 136-145 [facility] Comment on above: Performed By: #### C MP, LIPID, TSH, T7, URIC #### [facility] [address] [place] [address] Dr. Rebel Victoria Urea nitrogen [Mass/Vol] 13.0 mg/dL Normal 7.0-18.[address] [facility] Comment on above: Performed By: #### C MP, LIPID, TSH, T7, URIC #### [facility] [address] [place] [address] Dr. Rebel Victoria Urea nitrogen/Creatinine [Mass ratio] 11.9 mg/mg Normal [facility] Comment on above: Performed By: #### C MP, LIPID, TSH, T7, URIC #### [facility] [address] [place] [address] Dr. Rebel Victoria TSHon 02-12-2023 TSH 4.127 uIU/mL Critically high 0.358-3.740 [facility] Comment on above: Performed By: #### C MP, LIPID, TSH, T7, URIC #### [facility] [address] [place] [address] Dr. Rebel Victoria URIC ACID SERUMon 02-12-2023 Urate [Mass/Vol] 5.5 mg/dL Normal 3.5-7.2 [facility] Comment on above: Performed By: #### C MP, LIPID, TSH, T7, URIC #### [facility] [address] [place] [address] Dr. 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 Mechanical thrombectomy of the right M1 middle cerebral artery (MCA) with Stent retriever and Combined Suctioning width BGC. 2. Right Internal Carotid Artery (ICA) Cerebral Angiography 3. Right Common Carotid Artery (CCA) Cerebral Angiography 4. Left Common Carotid Artery (CCA) Cerebral Angiography 5. Right Vertebral Artery (VA) Cerebral Angiography 6. Right Common Femoral Artery (HEAD INSPECTOR AND CENTER MARKER) Angiogram Neurointerventionalis t: Rohit Rawls MD Access: Right Common Femoral Artery Anesthesia: MAC anesthesia. 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 Now status post tissue plasminogen activator on Mobile stroke unit. nih 15 but fluctuating in emergency department. CTP with good penumbra. Patient referred for cerebral angiogram acute thrombectomy. Consent: after explaining the risks and benefit to the family, including but not limited to vessel injury or perforation, stroke, intracranial hemorrhage, radiation, dye allergic reaction, groin hematoma and , an informed consent was obtained, signed and witnessed. Technique and Interpretations: The patient was brought to the interventional suite and placed in a supine position by the stroke and anesthesia team. The patient's right groin was prepped and draped in standard sterile fashion and under local anesthesia with conscious sedation, the right common femoral artery was accessed with a micropuncture technique, and a 8 Greek short sheath was placed within the right common femoral artery, establishing arterial access using Seldinger technique. Right CCA Technique: the right CCA was selectively catheterized under fluoroscopic guidance and over the guide wire with a 5F Bach select catheter together with the 8F Flowgate balloon guide catheter (BG). Images were obtained in standard biplane projections. Right CCA Interpretation: The right common carotid artery injection demonstrates normal antegrade flow into the external and internal carotid arteries with normal filling of the external carotid artery branches. There is mild stenosis of the right ICA at the level of the bulb with atherosclerotic changes. Course and caliber of the cervical portion of the right internal carotid artery are unremarkable. Further inspection demonstrates no evidence of dissection, stenosis, aneurysm, or other vascular abnormality within the right CCA into the cervical segment of the right ICA. Right ICA Technique: Subsequently, The 5F select catheter was removed and Trevo trak 21 021 microcatheter was advanced with an Asahi 014 microwire through the ICA occlusion under fluoroscopic guidance. Images were obtained in standard biplane projections. Right ICA Interpretation: The right ICA images demonstrated complete occlusion of the right MCA M1. Grade 2 collateral blood supply to the right MCA territory per the [place] [employer] of Interventional and Therapeutic Neuroradiology Radiology/Society of interventional Radiology(ASITN/SIR) collateral grade scale. FIRST PASS MECHANICAL THROMBECTOMY OF xxx M1 CLOT (SOLUMBRA): The select catheter was removed and an ISIS 68 reperfusion catheter was coaxially advanced with a rebar 18 021 microcatheter and an Asahi 014 microwire. The microwire and microcatheter were advanced through the clot to the superior right M2, the microwire was removed, and a 5 x 33 Embotrap stent retriever was advanced under fluoroscopic guidance, unsheathed spanning the right M1 MCA clot, and allowed to integrate with the clot for at least 5 minutes. The microcatheter was stripped off. The reperfusion catheter was gently advanced and the stent retriever device was gently pulled back until resistance was met. The stent retriever and the reperfusion catheter were removed from the body as a unit while applying continuous aspiration from the balloon guide catheter side port (using manual aspiration through a 60 cc syringe) as well as contact aspiration through the reperfusion catheter (using manual aspiration through a 60 cc syringe). Thrombus was visualized on the stent retriever and aspirate. Recanalization achieved TICI 2c. Distal clots were visualized in the distal parietal right MCA. Left CCA technique: The select catheter was re-advanced and the left common carotid artery was selectively catheterized under fluoroscopic guidance and digital subtraction angiography images were obtained in biplane projections of the left cervical common carotid artery. Interpretation: The left common carotid artery injection demonstrates normal antegrade flow into the external carotid artery with normal filling of the external carotid artery branches. There is complete occlusion versus string sign of the left ICA at the level of the carotid bulb. Further inspection demonstrates no other evidence of dissection, stenosis, aneurysm, or other vascular abnormality within the left CCA into the cervical segment of the left ICA. Right VA technique: The right subclavian artery was then selectively catheterized and the right vertebral artery was selectively catheterized with roadmap guidance. Digital subtraction angiography of the intracranial right vertebrobasilar run-off was obtained in frontal and lateral projections. Interpretation: Image quality was poor due to movement artifact. The right vertebral artery injection demonstrates normal antegrade opacification of the right vertebral artery, including the cervical segment, basilar artery, and respective branches. There is prominent collateral vascularization of the right posterior cerebral artery territory, which may explain the apparent vascular deficit seen on in the right MCA territory in the right ICA imaging. There was no evidence of cerebral aneurysm, arteriovenous malformation, or arterial stenosis. Capillary and venous phase images were unremarkable. Impression: --Acute right M1 MCA complete occlusion --The above treated with mechanical thrombectomy (Embotrap stent retriever with aspiration) TICI 2c x 1 pass with bgc --complete occlusion of the the cervical left ICA versus string sign --mild stenosis of the right ICA at the level of the bulb with noted atherosclerosis Dr Anna dictated this invasive procedure. Rohit Rawls was present for all procedural and imaging components of this case. Examination was reviewed and reported findings confirmed and evaluated by Rohit Rawls. Rohit Rawls MD Final report electronically signed by Rohit Rawls M.D. on 08/29/2020 4:15 PM Interpreted by: MD Parviz Boudreaux MD Signed by: Rohit Rawls MD 08/29/20 Final result Normal [facility] BASIC METABOLIC PANELon 10 Anion gap [Moles/Vol] 7 mmol/L Low 9 - 17 mmol/L [place], [place] Bun/Cre Ratio NOT REPORTED [place], [place] Calcium [Mass/Vol] 8.3 mg/dL Low 8.6 - 10. 4 mg/dL [facility], [place] Chloride [Moles/Vol] 108 mmol/L High 98 - 10 7 mmol/L [place], [place] CO2 [Moles/Vol] 25 mmol/L 20 - 31 mmol/L [facility], [place] Creatinine [Mass/Vol] 0.82 mg/dL 0.7 - 1.2 mg/dL [place], [place] GFR >60 >60 mL/min [place], [place] GFR Non- >60 >60 mL/min [place] GFR/1.73 sq M predicted among non-blacks MDRD (S/P/Bld) [Vol rate/Area] [place], [place] Comment on above: Average GFR for 70 o r more years old: 75 mL/min/1.73sq m Chronic Kidney Disease: <60 mL/min/1.73sq m Kidney failure: <15 mL/min/1.73sq m eGFR calculated using average adult body mass. Additional eGFR calculator available at: http://www.KXEN/multiple_crcl_2012.htm GFR/1.73 sq M predicted among non-blacks MDRD (S/P/Bld) [Vol rate/Area] NOT REPORTED [place], [place] Glucose [Mass/Vol] 110 mg/dL High 70 - 99 mg/dL [place], [place] Interpretation and review of laboratory results Abnormal [place], [place] Potassium [Moles/Vol] 4.0 mmol/L 3.7 - 5.3 mmol/L [place] Sodium [Moles/Vol] 140 mmol/L 135 - 144 mmol/L [place] Urea nitrogen [Mass/Vol] 13 mg/dL 8 - 23 mg/dL [place] Basic Metabolic Profon 08-26 (cont.) Normal [facility] Comment on above: Result Comment: Aver age GFR for 70 or more years old: 75 mL/min/1.73sq m Chronic Kidney Disease: <60 mL/min/1.73sq m Kidney failure: <15 mL/min/1.73sq m eGFR calculated using average adult body mass. Additional eGFR calculator available at: http://www.KXEN/multiple_crcl_2011.htm Performed By: #### S TROKE #### [facility] [address] [place] [address] Aircraft Engineer: Manuelito Mckay MD Anion gap [Moles/Vol] 7 mmol/L Low - [facility] Comment on above: Performed By: #### S TROKE #### [facility] [address] [place] [address] Aircraft Engineer: Manuelito Mckay MD Calcium [Mass/Vol] 8.3 mg/dL Low 8.6-10.4 [facility] Comment on above: Performed By: #### S TROKE #### [facility] [address] [place] [id number] Aircraft Engineer: Manuelito Mckay MD Chloride [Moles/Vol] 108 mmol/L High 98-107 [facility] Comment on above: Performed By: #### S TROKE #### [facility] [address] [place] [id number] Aircraft Engineer: Manuelito Mckay MD CO2 [Moles/Vol] 25 mmol/L Normal 20-31 [facility] Comment on above: Performed By: #### S TROKE #### [address] [id number] Aircraft Engineer: Manuelito Mckay MD Creatinine [Mass/Vol] 0.82 mg/dL Normal 0.70-1.20 [facility] Comment on above: Performed By: #### S TROKE #### [address] [id number] Aircraft Engineer: Manuelito Mckay MD GFR, Amer >60 Normal >60 [facility] Comment on above: Performed By: #### S TROKE #### [address] [id number] Aircraft Engineer: Manuelito Mckay MD GFR,non Amer >60 Normal >60 [facility] Comment on above: Performed By: #### S TROKE #### [address] [id number] Aircraft Engineer: Manuelito Mckay MD Glucose [Mass/Vol] 110 mg/dL High 70-99 [facility] Comment on above: Performed By: #### S TROKE #### [facility] [address] [place] [id number] Aircraft Engineer: Manuelito Mckay MD Potassium [Moles/Vol] 4.0 mmol/L Normal 3.7-5.3 [facility] Comment on above: Performed By: #### S TROKE #### [facility] [address] [place] [id number] Aircraft Engineer: Manuelito Mckay MD Sodium [Moles/Vol] 140 mmol/L Normal 135-144 [facility] Comment on above: Performed By: #### S TROKE #### [address] [id number] Aircraft Engineer: Manuelito Mckay MD Urea nitrogen [Mass/Vol] 13 mg/dL Normal - [facility] Comment on above: Performed By: #### S EBKE #### [address] [id number] Aircraft Engineer: Manuelito Mckay MD BUN/CRE Ratio NOT REPORTED Normal 07-22 [facility] Comment on above: Performed By: #### S EBKE #### [address] [id number] Aircraft Engineer: Manuelito Mckay MD Staging: NOT REPORTED Normal [facility] Comment on above: Performed By: #### S TROKE #### [address] [address] Aircraft Engineer: Manuelito Mckay MD CBCon 08-26-2020 Erythrocyte distribution width (RBC) [Ratio] 13.5 % Normal 11.8-14.4 [facility] Comment on above: Performed By: #### C BC, TROPI, LIPR, GLYHGB #### [facility] [address] [place] [id number] Aircraft Engineer: Manuelito Mckay MD Hematocrit (Bld) [Volume fraction] 44.1 % Normal 40.7-50.3 [facility] Comment on above: Performed By: #### C BC, TROPI, LIPR, GLYHGB #### [facility] [address] [place] [phone] Aircraft Engineer: Manuelito Mckay MD Hemoglobin (Bld) [Mass/Vol] 14.0 g/dL Normal 13.0-17.0 [facility] Comment on above: Performed By: #### C BC, TROPI, LIPR, GLYHGB #### [facility] [address] [place] [id number] Aircraft Engineer: Manuelito Mckay MD MCH (RBC) [Entitic mass] 31.6 pg Normal 25.2-33.5 [facility] Comment on above: Performed By: #### C BC, TROPI, LIPR, GLYHGB #### [facility] [address] [place] [phone] Aircraft Engineer: Manuelito Mckay MD MCHC (RBC) [Mass/Vol] 31.7 g/dL Normal 28.4-34.8 [facility] Comment on above: Performed By: #### C BC, TROPI, LIPR, GLYHGB #### [facility] [address] [place] [id number] Aircraft Engineer: Manuelito Mckay MD MCV (RBC) [Entitic vol] 99.5 fL Normal 82.6-102.9 [facility] Comment on above: Performed By: #### C BC, TROPI, LIPR, GLYHGB #### [facility] [address] [place] [id number] Aircraft Engineer: Manuelito Mckay MD NRBC Automated 0.0 per 100 WBC Normal 0.0 [facility] Comment on above: Performed By: #### C BC, TROPI, LIPR, GLYHGB #### [facility] [address] [place] [id number] Aircraft Engineer: Manuelito Mckay MD Platelet mean volume (Bld) [Entitic vol] 11.4 fL Normal 8.1-13.5 [facility] Comment on above: Performed By: #### C BC, TROPI, LIPR, GLYHGB #### [facility] [address] [place] [address] Aircraft Engineer: Manuelito Mckay MD Platelets (Bld) [#/Vol] 191 10*3/uL Normal 138-453 [facility] Comment on above: Performed By: #### C BC, TROPI, LIPR, GLYHGB #### [facility] [address] [place] [address] Aircraft Engineer: Manuelito Mckay MD RBC (Bld) [#/Vol] 4.43 10*6/uL Normal 4.21-5.77 [facility] Comment on above: Performed By: #### C BC, TROPI, LIPR, GLYHGB #### [facility] [address] [place] [address] Aircraft Engineer: Manuelito Mckay MD WBC (Bld) [#/Vol] 21.1 10*3/uL High 3.5-11.3 [facility] Comment on above: Performed By: #### C BC, TROPI, LIPR, GLYHGB #### [facility] [address] [place] [address] Aircraft Engineer: Manuelito Mckay MD Erythrocyte distribution width (RBC) [Ratio] 13.5 % 11.8 - 14.4 % [place] Hematocrit (Bld) [Volume fraction] 44.1 % 40.7 - 50.3 % [place] Hemoglobin (Bld) [Mass/Vol] 14.0 g/dL 13 - 17 g/dL [place] Interpretation and review of laboratory results Abnormal [place] MCH (RBC) [Entitic mass] 31.6 pg 25.2 - 33.5 pg [place] MCHC (RBC) [Mass/Vol] 31.7 g/dL 28.4 - 34.8 g/dL [place] MCV (RBC) [Entitic vol] 99.5 fL 82.6 - 102.9 fL [place] Platelet mean volume (Bld) [Entitic vol] 11.4 fL 8.1 - 13.5 fL [place] Platelets (Bld) [#/Vol] 191 10*3/uL [place] RBC (Bld) [#/Vol] 4.43 10*6/uL 4.21 - 5.7 7 m/uL [place] WBC (Bld) [#/Vol] 21.1 10*3/uL [place] WBC (Bld) [#/Vol] 0.0 10*3/uL 0.0 per 10 0 WBC [place] CBC WITH AUTO DIFFERENTIALon 08-26-2020 Basophils (Bld) [#/Vol] 0.03 10*3/uL [place] Basophils/100 WBC (Bld) 0 % 0 - 2 % [place] Differential Type NOT REPORTED [place] Eosinophils (Bld) [#/Vol] 0.06 10*3/uL [place] Eosinophils/100 WBC (Bld) 0 % Low 1 - 4 % [place] Erythrocyte distribution width (RBC) [Ratio] 13.6 % 11.8 - 14.4 % [place] Hematocrit (Bld) [Volume fraction] 42.7 % 40.7 - 50.3 % [place] Hemoglobin (Bld) [Mass/Vol] 13.6 g/dL 13 - 17 g/dL [place] Immature granulocytes (Bld) [#/Vol] 1 % High 0 [place] Immature granulocytes (Bld) [#/Vol] 0.10 10*3/uL [place] Interpretation and review of laboratory results Abnormal [place] Lymphocytes (Bld) [#/Vol] 2.97 10*3/uL [place] Lymphocytes/100 WBC (Bld) 16 % Low 24 - 43 % [place] MCH (RBC) [Entitic mass] 32.1 pg 25.2 - 33.5 pg [place] MCHC (RBC) [Mass/Vol] 31.9 g/dL 28.4 - 34.8 g/dL [place] MCV (RBC) [Entitic vol] 100.7 fL 82.6 - 102.9 fL [place] Monocytes (Bld) [#/Vol] 1.03 10*3/uL [place] Monocytes/100 WBC (Bld) 6 % 3 - 12 % [place] Platelet mean volume (Bld) [Entitic vol] 11.4 fL 8.1 - 13.5 fL [place] Platelets (Bld) [#/Vol] 190 10*3/uL [place] Platelets (Bld) [#/Vol] NOT REPORTED [place] RBC (Bld) [#/Vol] 4.24 10*6/uL 4.21 - 5.7 7 m/uL [place] RBC morphology finding Nom (Bld) NOT REPORTED [place] Segmented neutrophils/100 WBC (Bld) 77 % High 36 - 65 % [place] Segs Absolute 13.99 [place] WBC (Bld) [#/Vol] 18.2 10*3/uL [place] WBC (Bld) [#/Vol] 0.0 10*3/uL 0.0 per 10 0 WBC [place] WBC Morphology NOT REPORTED [place] CBC with Diffon 08-26-2020 Abs. Basophil 0.03 k/uL Normal 0.00-0.20 [facility] Comment on above: Performed By: #### Fermin HYMAN #### [employer] [address] [place] [id number] Aircraft Engineer: Manuelito Mkcay MD Abs.Imm.Granulocyte 0.10 k/uL Normal 0.00-0.30 [facility] Comment on above: Performed By: #### Fermin HYMAN #### [address] [address] Aircraft Engineer: Manuelito Mckay MD Abs.Neutrophil (Seg) 13.99 k/uL High 1.50-8.10 [facility] Comment on above: Performed By: #### S YENNI #### [address] [address] Aircraft Engineer: Manuelito Mckay MD Basophils/100 WBC (Bld) 0 % Normal 0-2 [facility] Comment on above: Performed By: #### S YENNI #### [address] [address] Aircraft Engineer: Manuelito Mckay MD Eosinophils (Bld) [#/Vol] 0.06 10*3/uL Normal 0.00-0.44 [facility] Comment on above: Performed By: #### S YENNI #### [address] [address] Aircraft Engineer: Manuelito Mckay MD Eosinophils/100 WBC (Bld) 0 % Low 1-4 [facility] Comment on above: Performed By: #### S YENNI #### [address] [address] Aircraft Engineer: Manuelito Mckay MD Erythrocyte distribution width (RBC) [Ratio] 13.6 % Normal 11.8-14.4 [facility] Comment on above: Performed By: #### S YENNI #### [address] [address] Aircraft Engineer: Manuelito Mckay MD Hematocrit (Bld) [Volume fraction] 42.7 % Normal 40.7-50.3 [facility] Comment on above: Performed By: #### S YENNI #### [address] [address] Aircraft Engineer: Manuelito Mckay MD Hemoglobin (Bld) [Mass/Vol] 13.6 g/dL Normal 13.0-17.0 [facility] Comment on above: Performed By: #### S YENNI #### [address] [address] Aircraft Engineer: Manuelito Mckay MD Immature granulocytes (Bld) [#/Vol] 1 % High 0 [facility] Comment on above: Performed By: #### S YENNI #### [place] [address] Aircraft Engineer: Manuelito Mckay MD Lymphocytes (Bld) [#/Vol] 2.97 10*3/uL Normal 1.10-3.70 [facility] Comment on above: Performed By: #### S YENNI #### [place] [address] Aircraft Engineer: Manuelito Mckay MD Lymphocytes/100 WBC (Bld) 16 % Low 24-43 [facility] Comment on above: Performed By: #### S YENNI #### [address] [address] Aircraft Engineer: Manuelito Mckay MD MCH (RBC) [Entitic mass] 32.1 pg Normal 25.2-33.5 [facility] Comment on above: Performed By: #### S YENNI #### [address] [address] Aircraft Engineer: Manuelito Mckay MD MCHC (RBC) [Mass/Vol] 31.9 g/dL Normal 28.4-34.8 [facility] Comment on above: Performed By: #### S YENNI #### [address] [address] Aircraft Engineer: Manuelito Mckay MD MCV (RBC) [Entitic vol] 100.7 fL Normal 82.6-102.9 [facility] Comment on above: Performed By: #### S TROKE #### [address] [address] Aircraft Engineer: Manuelito Mckay MD Monocytes (Bld) [#/Vol] 1.03 10*3/uL Normal 0.10-1.20 [facility] Comment on above: Performed By: #### S TROKE #### [address] [address] Aircraft Engineer: Manuelito Mckay MD Monocytes/100 WBC (Bld) 6 % Normal 3-12 [facility] Comment on above: Performed By: #### S EBKE #### [address] [address] Aircraft Engineer: Manuelito Mckay MD Neutrophil (Seg) 77 % High 36-65 [facility] Comment on above: Performed By: #### S EBKE #### [address] [address] Aircraft Engineer: Manuelito Mckay MD NRBC Automated 0.0 per 100 WBC Normal 0.0 [facility] Comment on above: Performed By: #### S EBKE #### [address] [address] Aircraft Engineer: Manuelito Mckay MD Platelet mean volume (Bld) [Entitic vol] 11.4 fL Normal 8.1-13.5 [facility] Comment on above: Performed By: #### S TROKE #### [address] [address] Aircraft Engineer: Manuelito Mckay MD Platelets (Bld) [#/Vol] 190 10*3/uL Normal 138-453 [facility] Comment on above: Performed By: #### S TROKE #### [address] [address] Aircraft Engineer: Manuelito Mckay MD RBC (Bld) [#/Vol] 4.24 10*6/uL Normal 4.21-5.77 [facility] Comment on above: Performed By: #### S TROKE #### [address] [address] Aircraft Engineer: Manuelito Mckay MD WBC (Bld) [#/Vol] 18.2 10*3/uL High 3.5-11.3 [facility] Comment on above: Performed By: #### S TROKE #### [facility] [address] [place] [id number] Aircraft Engineer: Manuelito Mckay MD Auto Diff Performed NOT REPORTED Normal [facility] Comment on above: Performed By: #### S TROKE #### [address] [address] Aircraft Engineer: Maneulito Mckay MD Platelets (Bld) [#/Vol] NOT REPORTED Normal [facility] Comment on above: Performed By: #### S TROKE #### [facility] [address] [place] [id number] Aircraft Engineer: Manuelito Mckay MD RBC morphology finding Nom (Bld) NOT REPORTED Normal [facility] Comment on above: Performed By: #### S TROKE #### [address] [address] Aircraft Engineer: Manuelito Mckay MD WBC Morphology NOT REPORTED Normal [facility] Comment on above: Performed By: #### S TROKE #### [address] [address] Aircraft Engineer: Manuelito Mckay MD CT HEAD WO CONTRASTon 2019 CT HEAD WO CONTRAST EXAMINATION: CT OF THE HEAD WITHOUT CONTRAST, 08/25/2020 9:46 pm TECHNIQUE: CT of the head was performed without the administration of intravenous contrast. Dose modulation, iterative reconstruction, and/or weight based adjustment of the mA/kV was utilized to reduce the radiation dose to as low as reasonably achievable. COMPARISON: 08/25/2020, CT brain, CT perfusion and CT angiogram. HISTORY: ORDERING SYSTEM PROVIDED HISTORY: 24 hr post TPA administration TECHNOLOGIST PROVIDED HISTORY: 24 hr post TPA administration Reason for Exam: 24 HOUR POST TPA Acuity: Unknown Type of Exam: Unknown FINDINGS: BRAIN/VENTRICLES: There is focal hypoattenuation along the posterior margin of the right basal ganglia consistent with an acute infarct. This has developed since the previous exam. The remainder of the huang-white differentiation is maintained in the area of large ischemic penumbra evident on the prior perfusion exam. There is no acute intracranial hemorrhage. There is no mass effect or midline shift. There is no ventriculomegaly or abnormal extra-axial fluid collection present. ORBITS: Limited evaluation of the orbits is unremarkable. SINUSES: Mild mucosal thickening is present throughout the paranasal sinuses. SOFT TISSUES/SKULL: No lytic or blastic osseous lesions are identified. IMPRESSION: 1. Relatively small acute infarct within the posterior margin of the right basal ganglia given the large ischemic penumbra evident on the prior perfusion images within the right MCA territory. 2. No acute intracranial hemorrhage. Interpreted by: Deshawn Lorenzo MD Signed by: Deshawn Lorenzo MD 08/26/20 Final result Normal [facility] EXAMINATION: CT OF THE HEAD WITHOUT CONTRAST, 08/25/2020 9:46 pm TECHNIQUE: CT of the head was performed without the administration of intravenous contrast. Dose modulation, iterative reconstruction, and/or weight based adjustment of the mA/kV was utilized to reduce the radiation dose to as low as reasonably achievable. COMPARISON: 08/25/2020, CT brain, CT perfusion and CT angiogram. HISTORY: ORDERING SYSTEM PROVIDED HISTORY: 24 hr post TPA administration TECHNOLOGIST PROVIDED HISTORY: 24 hr post TPA administration Reason for Exam: 24 HOUR POST TPA Acuity: Unknown Type of Exam: Unknown FINDINGS: BRAIN/VENTRICLES: There is focal hypoattenuation along the posterior margin of the right basal ganglia consistent with an acute infarct. This has developed since the previous exam. The remainder of the huang-white differentiation is maintained in the area of large ischemic penumbra evident on the prior perfusion exam. There is no acute intracranial hemorrhage. There is no mass effect or midline shift. There is no ventriculomegaly or abnormal extra-axial fluid collection present. ORBITS: Limited evaluation of the orbits is unremarkable. SINUSES: Mild mucosal thickening is present throughout the paranasal sinuses. SOFT TISSUES/SKULL: No lytic or blastic osseous lesions are identified. [place], [place] Isaac, [facility] Incoming Radiant Results From [employer] - 08/26/2020 12:14 AM EDT EXAMINATION: CT OF THE HEAD WITHOUT CONTRAST, 08/25/2020 9:46 pm TECHNIQUE: CT of the head was performed without the administration of intravenous contrast. Dose modulation, iterative reconstruction, and/or weight based adjustment of the mA/kV was utilized to reduce the radiation dose to as low as reasonably achievable. COMPARISON: 08/25/2020, CT brain, CT perfusion and CT angiogram. HISTORY: ORDERING SYSTEM PROVIDED HISTORY: 24 hr post TPA administration TECHNOLOGIST PROVIDED HISTORY: 24 hr post TPA administration Reason for Exam: 24 HOUR POST TPA Acuity: Unknown Type of Exam: Unknown FINDINGS: BRAIN/VENTRICLES: There is focal hypoattenuation along the posterior margin of the right basal ganglia consistent with an acute infarct. This has developed since the previous exam. The remainder of the huang-white differentiation is maintained in the area of large ischemic penumbra evident on the prior perfusion exam. There is no acute intracranial hemorrhage. There is no mass effect or midline shift. There is no ventriculomegaly or abnormal extra-axial fluid collection present. ORBITS: Limited evaluation of the orbits is unremarkable. SINUSES: Mild mucosal thickening is present throughout the paranasal sinuses. SOFT TISSUES/SKULL: No lytic or blastic osseous lesions are identified. IMPRESSION: 1. Relatively small acute infarct within the posterior margin of the right basal ganglia given the large ischemic penumbra evident on the prior perfusion images within the right MCA territory. 2. No acute intracranial hemorrhage. [place] 1. Relatively small acute infarct within the posterior margin of the right basal ganglia given the large ischemic penumbra evident on the prior perfusion images within the right MCA territory. 2. No acute intracranial hemorrhage. [place] Hemoglobin A1Con 08-26-2020 HbA1c (Bld) [Mass fraction] 5.7 % Normal 4.0-6.0 [facility] Comment on above: Performed By: #### S EBKE #### [facility] [address] [place] [id number] Aircraft Engineer: Manuelito Mckay MD HbA1c (Bld) [Mass fraction] 117 mg/dL Normal [facility] Comment on above: Result Comment: The ADA and AACC recommend providing the estimated average glucose result to permit better patient understanding of their HBA1c result. Performed By: #### S YENNI #### [employer] [address] [place] [id number] Aircraft Engineer: Manuelito Mckay MD Hemoglobin A1con 08-26-2020 Glucose [Mass/Vol] 117 mg/dL [place] Comment on above: The ADA and AACC rec ommend providing the estimated average glucose result to permit better patient understanding of their HBA1c result. HbA1c (Bld) [Mass fraction] 5.7 % 4 - 6 % [place] Lipid Profileon 08-26-2020 Cholesterol [Mass/Vol] 146 mg/dL Normal <200 [facility] Comment on above: Result Comment: Cholesterol Guidelines: <200 Desirable 200-240 Borderline >240 Undesirable Performed By: #### C BC, TROPI, LIPR, GLYHGB #### [employer] [address] [place] [id number] Aircraft Engineer: Manuelito Mckay MD Cholesterol in HDL [Mass/Vol] 51 mg/dL Normal >40 [facility] Comment on above: Result Comment: HDL Guidelines: <40 Undesirable 40-59 Borderline >59 Desirable Performed By: #### C BC, TROPI, LIPR, GLYHGB #### [employer] [address] [place] [id number] Aircraft Engineer: Manuelito Mckay MD Cholesterol in LDL [Mass/Vol] 73 mg/dL Normal 0-130 [facility] Comment on above: Result Comment: LDL Guidelines: <100 Desirable 100-129 Near to/above Desirable 130-159 Borderline >159 Undesirable Direct (measured) LDL and calculated LDL are not interchangeable tests. Performed By: #### C BC, TROPI, LIPR, GLYHGB #### [employer] [address] [place] [address] [phone] Aircraft Engineer: Manuelito Mckay MD Cholesterol.total/Ch olesterol in HDL [Mass ratio] 2.9 {ratio} Normal <5 [facility] Comment on above: Performed By: #### C BC, TROPI, LIPR, GLYHGB #### [employer] [address] [place], [place] [phone] Aircraft Engineer: Manuelito Mckay MD Triglyceride [Mass/Vol] 110 mg/dL Normal <150 [facility] Comment on above: Result Comment: Triglyceride Guidelines: <150 Desirable 150-199 Borderline 200-499 High >499 Very high Based on AHA Guidelines for fasting triglyceride, August 2012. Performed By: #### C BC, TROPI, LIPR, GLYHGB #### [facility] [address] [place], [place] [phone] Aircraft Engineer: Manuelito Mckay MD Cholesterol in VLDL [Mass/Vol] NOT REPORTED Normal 1-30 [facility] Comment on above: Performed By: #### C BC, TROPI, LIPR, GLYHGB #### [facility] [address] [place] [id number] Aircraft Engineer: Manuelito Mckay MD Lipid panel - fastingon 08-03 Cholesterol [Mass/Vol] 146 mg/dL <200 [place] Comment on above: Cholesterol Guidelines: <200 Desirable 200-240 Borderline >240 Undesirable Cholesterol in HDL [Mass/Vol] 51 mg/dL >40 [place] Comment on above: HDL Guidelines: <40 Undesirable 40-59 Borderline >59 Desirable Cholesterol in LDL [Mass/Vol] 73 mg/dL 0 - 130 mg/dL [place] Comment on above: LDL Guidelines: <100 Desirable 100-129 Near to/above Desirable 130-159 Borderline >159 Undesirable Direct (measured) LDL and calculated LDL are not interchangeable tests. Cholesterol in VLDL [Mass/Vol] NOT REPORTED 1 - 30 mg/dL [place] Cholesterol.total/Ch olesterol in HDL [Mass ratio] 2.9 {ratio} <5 [place] Triglyceride [Mass/Vol] 110 mg/dL <150 [place] Comment on above: Triglyceride Guidelines: <150 Desirable 150-199 Borderline 200-499 High >499 Very high Based on AHA Guidelines for fasting triglyceride, August 2012. Troponinon 08-26-2020 Troponin I.cardiac [Mass/Vol] 15 ng/L Normal 0-22 [facility] Comment on above: Result Comment: High Sensitivity Troponin values cannot be compared with other Troponin methodologies. Patients with high levels of Biotin oral intake (i.e >5mg/day) may have falsely decreased Troponin levels. Samples collected within 8 hours of biotin intake may require additional information for diagnosis. Performed By: #### C BC, TROPI, LIPR, GLYHGB #### [facility] [address] [place], [place] [phone] Aircraft Engineer: Manuelito Mckay MD Troponin I.cardiac [Mass/Vol] NOT REPORTED Normal <0.03 [facility] Comment on above: Performed By: #### C BC, TROPI, LIPR, GLYHGB #### [facility] [address] [place], [place] [phone] Aircraft Engineer: Manuelito Mckay MD Troponin I.cardiac [Mass/Vol] NOT REPORTED [place] Troponin T.cardiac [Mass/Vol] NOT REPORTED <0.03 ng/mL [place] Troponin, High Sensitivity 15 ng/L 0 - 22 ng/L [place] Comment on above: High Sensitivity Troponin values cannot be compared with other Troponin methodologies. Patients with high levels of Biotin oral intake (i.e >5mg/day) may have falsely decreased Troponin levels. Samples collected within 8 hours of biotin intake may require additional information for diagnosis. CT HEAD WO CONTRASTon 2019 CT HEAD WO CONTRAST EXAMINATION: CT OF THE HEAD WITHOUT CONTRAST 08/25/2020 5:51 am TECHNIQUE: CT of the head was performed without the administration of intravenous contrast. Dose modulation, iterative reconstruction, and/or weight based adjustment of the mA/kV was utilized to reduce the radiation dose to as low as reasonably achievable. COMPARISON: August 24, 2020 HISTORY: ORDERING SYSTEM PROVIDED HISTORY: s/p TPA/thrombectomy TECHNOLOGIST PROVIDED HISTORY: s/p TPA/thrombectomy Reason for Exam: s/p TPA/thrombectomy Acuity: Acute Type of Exam: Initial FINDINGS: No acute intracranial hemorrhage. No mass effect. No midline shift. Mild prominence of the ventricles and sulci is consistent with atrophy. Increased hypodensity is now seen within the right temporal lobe. No acute soft tissue abnormality. No acute orbital abnormality. No acute osseous abnormality. Mild mucosal thickening within the ethmoid air cells and left maxillary sinus. Mastoid air cells are clear. IMPRESSION: Evolving right temporal lobe infarct. Interpreted by: Eder Ledesma MD Signed by: Eder Ledesma MD 08/25/20 Final result Normal [facility] Isaac, [facility] Incoming Radiant Results From [employer] - 08/25/2020 8:15 AM EDT EXAMINATION: CT OF THE HEAD WITHOUT CONTRAST 08/25/2020 5:51 am TECHNIQUE: CT of the head was performed without the administration of intravenous contrast. Dose modulation, iterative reconstruction, and/or weight based adjustment of the mA/kV was utilized to reduce the radiation dose to as low as reasonably achievable. COMPARISON: August 24, 2020 HISTORY: ORDERING SYSTEM PROVIDED HISTORY: s/p TPA/thrombectomy TECHNOLOGIST PROVIDED HISTORY: s/p TPA/thrombectomy Reason for Exam: s/p TPA/thrombectomy Acuity: Acute Type of Exam: Initial FINDINGS: No acute intracranial hemorrhage. No mass effect. No midline shift. Mild prominence of the ventricles and sulci is consistent with atrophy. Increased hypodensity is now seen within the right temporal lobe. No acute soft tissue abnormality. No acute orbital abnormality. No acute osseous abnormality. Mild mucosal thickening within the ethmoid air cells and left maxillary sinus. Mastoid air cells are clear. IMPRESSION: Evolving right temporal lobe infarct. [facility], [place] EXAMINATION: CT OF THE HEAD WITHOUT CONTRAST 08/25/2020 5:51 am TECHNIQUE: CT of the head was performed without the administration of intravenous contrast. Dose modulation, iterative reconstruction, and/or weight based adjustment of the mA/kV was utilized to reduce the radiation dose to as low as reasonably achievable. COMPARISON: August 24, 2020 HISTORY: ORDERING SYSTEM PROVIDED HISTORY: s/p TPA/thrombectomy TECHNOLOGIST PROVIDED HISTORY: s/p TPA/thrombectomy Reason for Exam: s/p TPA/thrombectomy Acuity: Acute Type of Exam: Initial FINDINGS: No acute intracranial hemorrhage. No mass effect. No midline shift. Mild prominence of the ventricles and sulci is consistent with atrophy. Increased hypodensity is now seen within the right temporal lobe. No acute soft tissue abnormality. No acute orbital abnormality. No acute osseous abnormality. Mild mucosal thickening within the ethmoid air cells and left maxillary sinus. Mastoid air cells are clear. [place], [place] Evolving right temporal lobe infarct. [place] EKG 12 Leadon 08-25-2020 Atrial Rate 72 BPM [place] P [place] 92 degrees [place] P-R Interval 184 ms [place] Q-T Interval 458 ms [place] QRS Duration 100 ms [place] QTc Calculation (Bazett) 501 ms [place] R [place] 38 degrees [place] T [place] 67 degrees [place] Ventricular Rate 72 BPM [place] Sinus rhythm with occasional Premature ventricular complexes and Premature atrial complexes Nonspecific ST and T wave abnormality Prolonged QT Abnormal ECG No previous ECGs available [place], [place] Isaac, [facility] Incoming Ekg Results From [facility] - 08/25/2020 11:56 AM EDT Sinus rhythm with occasional Premature ventricular complexes and Premature atrial complexes Nonspecific ST and T wave abnormality Prolonged QT Abnormal ECG No previous ECGs available [place] Echo Completeon 08-25-2020 Transthoracic Echocardiography Report (TTE) Patient Name YOGESH Date of Study 08/25/2020 DAISY Dudley SR. Date of 1940 Gender Male Age 80 year(s) Race Room Number 0526 Height: 73 inch, 185.42 cm Corporate ID [id number] Weight: 230 pounds, 104.3 kg # Patient Acct [id number] BSA: 2.28 m^2 BMI: 30.35 # kg/m^2 MR # [id number] Casting Agent Sherrell Jimenez Interpreting Physician Jack Mckeon Fellow Referring Nurse Practitioner Interpreting Referring Physician Mike Murray MD Fellow Type of Study TTE procedure:2D Echocardiogram, M-Mode, Doppler, Color Doppler, Bubble Study. Procedure Date Date: 08/25/2020 Start: 03:58 PM Study Location: [facility] History / Tech. Comments: CVA Patient Status: Inpatient Height: 73 inches Weight: 230.01 pounds BSA: 2.28 m^2 BMI: 30.35 kg/m^2 CONCLUSIONS Summary Negative bubble study. (no right to left intra-cardiac shunt ). Left ventricle is normal in size with normal systolic function globally. Calculated ejection fraction is 60% No significant valvular regurgitation or stenosis seen. Signature Electronically signed by Jack Mckeon([facility] [place] [facility]) on 08/25/2020 11:14 PM FINDINGS Left Atrium Left atrium is mildly dilated. Left Ventricle Left ventricle is normal in size with normal systolic function globally. Calculated ejection fraction is 60% Right Atrium Right atrium is normal in size. Right Ventricle Normal right ventricular size and function. Mitral Valve Mitral valve structure is normal. Mild mitral regurgitation. Aortic Valve No aortic insufficiency. No aortic stenosis. Tricuspid Valve Tricuspid valve structure is normal. Mild tricuspid regurgitation. Estimated right ventricular systolic pressure is 26 mmHg. Pulmonic Valve The pulmonic valve is normal in structure. Pericardial Effusion No significant pericardial effusion is seen. Miscellaneous Normal aortic root dimension. Bubble study was negative. E/E' average =8 M-mode / 2D Measurements & Calculations: LVIDd:5.5 cm(3.7 - 5.6 cm) Diastolic Volume:173 ml IVSd:0.9 cm(0.6 - 1.1 cm) Systolic Volume:67.9 ml LA Dimension: 4.6 cm(1.9 - 4.0 cm) Calculated LVEF (%): 60.75 % LA volume/Index: 77.5 ml /34m^2 RVDd:3.5 cm Mitral: Aortic Valve Area (P1/2-Time): 2.68 cm^2 Peak Velocity: 1.25 m/s Peak E-Wave: 0.82 m/s Mean Velocity: 0.96 m/s Peak A-Wave: 0.79 m/s Peak Gradient: 6.25 mmHg E/A Ratio: 1.04 Mean Gradient: 4 mmHg Peak Gradient: 2.66 mmHg Mean Gradient: 1 mmHg Deceleration Time: 272 msec AV VTI: 32.5 cm P1/2t: 82 msec Mean Velocity: 0.50 m/s Tricuspid: Pulmonic: Estimated RVSP: 26 mmHg Peak Velocity: 0.95 m/s Peak TR Velocity: 2.02 m/s Peak Gradient: 3.61 mmHg Peak TR Gradient: 16.3216 mmHg Estimated RA Pressure: 10 mmHg Estimated PASP: 26.32 mmHg Diastology / Tissue Doppler Septal Wall E' velocity:0.08 m/s Septal Wall E/E':9 Lateral Wall E' velocity:0.13 m/s Lateral Wall E/E':6 [facility] [place], [place] Isaac, [facility] Incoming Cardio Results From [facility]/ - 08/25/2020 11:14 PM EDT Transthoracic Echocardiography Report (TTE) Patient Name YOGESH Date of Study 08/25/2020 DAISY Luis Enrique BECKHAM. Date of 1940 Gender Male Age 80 year(s) Race Room Number 0526 Height: 73 inch, 185.42 cm Corporate ID [id number] Weight: 230 pounds, 104.3 kg # Patient Acct [id number] BSA: 2.28 m^2 BMI: 30.35 # kg/m^2 MR # [id number] Casting Agent Sherrell Jimenez Interpreting Physician Jack Mckeon Fellow Referring Nurse Practitioner Interpreting Referring Physician Mike Murray MD Fellow Type of Study TTE procedure:2D Echocardiogram, M-Mode, Doppler, Color Doppler, Bubble Study. Procedure Date Date: 08/25/2020 Start: 03:58 PM Study Location: [facility] History / Tech. Comments: CVA Patient Status: Inpatient Height: 73 inches Weight: 230.01 pounds BSA: 2.28 m^2 BMI: 30.35 kg/m^2 CONCLUSIONS Summary Negative bubble study. (no right to left intra-cardiac shunt ). Left ventricle is normal in size with normal systolic function globally. Calculated ejection fraction is 60% No significant valvular regurgitation or stenosis seen. Signature - - - Electronically signed by Jack Mckeon([facility] [place] [facility]) on 08/25/2020 11:14 PM - FINDINGS Left Atrium Left atrium is mildly dilated. Left Ventricle Left ventricle is normal in size with normal systolic function globally. Calculated ejection fraction is 60% Right Atrium Right atrium is normal in size. Right Ventricle Normal right ventricular size and function. Mitral Valve Mitral valve structure is normal. Mild mitral regurgitation. Aortic Valve No aortic insufficiency. No aortic stenosis. Tricuspid Valve Tricuspid valve structure is normal. Mild tricuspid regurgitation. Estimated right ventricular systolic pressure is 26 mmHg. Pulmonic Valve The pulmonic valve is normal in structure. Pericardial Effusion No significant pericardial effusion is seen. Miscellaneous Normal aortic root dimension. Bubble study was negative. E/E' average =8 M-mode / 2D Measurements & Calculations: LVIDd:5.5 cm(3.7 - 5.6 cm) Diastolic Volume:173 ml IVSd:0.9 cm(0.6 - 1.1 cm) Systolic Volume:67.9 ml LA Dimension: 4.6 cm(1.9 - 4.0 cm) Calculated LVEF (%): 60.75 % LA volume/Index: 77.5 ml /34m^2 RVDd:3.5 cm Mitral: Aortic Valve Area (P1/2-Time): 2.68 cm^2 Peak Velocity: 1.25 m/s Peak E-Wave: 0.82 m/s Mean Velocity: 0.96 m/s Peak A-Wave: 0.79 m/s Peak Gradient: 6.25 mmHg E/A Ratio: 1.04 Mean Gradient: 4 mmHg Peak Gradient: 2.66 mmHg Mean Gradient: 1 mmHg Deceleration Time: 272 msec AV VTI: 32.5 cm P1/2t: 82 msec Mean Velocity: 0.50 m/s Tricuspid: Pulmonic: Estimated RVSP: 26 mmHg Peak Velocity: 0.95 m/s Peak TR Velocity: 2.02 m/s Peak Gradient: 3.61 mmHg Peak TR Gradient: 16.3216 mmHg Estimated RA Pressure: 10 mmHg Estimated PASP: 26.32 mmHg Diastology / Tissue Doppler Septal Wall E' velocity:0.08 m/s Septal Wall E/E':9 Lateral Wall E' velocity:0.13 m/s Lateral Wall E/E':6 [place] [id number] 08-25-2020 SARS-CoV-2 Normal [facility] Comment on above: Performed By: #### C OVID #### [address] [id number] Aircraft Engineer: Manuelito Mckay MD SARS-CoV-2,Rapid Not Detected Normal NOTDET [facility] Comment on above: Result Comment: Rapid NAAT: The specimen is NEGATIVE for SARS-CoV-2, the novel coronavirus associated with COVID-19. The ID NOW COVID-19 assay is designed to detect the virus that causes COVID-19 in patients with signs and symptoms of infection who are suspected of COVID-19. An individual without symptoms of COVID-19 and who is not shedding SARS-CoV-2 virus would expect to have a negative (not detected) result in this assay. Negative results should be treated as presumptive and, if inconsistent with clinical signs and symptoms or necessary for patient management, should be tested with an alternative molecular assay. Negative results do not preclude SARS-CoV-2 infection and should not be used as the sole basis for patient management decisions. Fact sheet for Healthcare Providers: https://www.fda.gov/media/753375/download Fact sheet for Patients: https://www.fda.gov/media/804635/download Methodology: Isothermal Nucleic Acid Amplification Performed By: #### C OVID #### [facility] [address] [place] [address] [id number] Aircraft Engineer: Manuelito Mckay MD COVID-19on 08-24-2020 SARS-CoV-2, Rapid Not Detected Not Detected [place], [place] Comment on above: Rapid NAAT: The specimen is NEGATIVE for SARS-CoV-2, the novel coronavirus associated with COVID-19. The ID NOW COVID-19 assay is designed to detect the virus that causes COVID-19 in patients with signs and symptoms of infection who are suspected of COVID-19. An individual without symptoms of COVID-19 and who is not shedding SARS-CoV-2 virus would expect to have a negative (not detected) result in this assay. Negative results should be treated as presumptive and, if inconsistent with clinical signs and symptoms or necessary for patient management, should be tested with an alternative molecular assay. Negative results do not preclude SARS-CoV-2 infection and should not be used as the sole basis for patient management decisions. Fact sheet for Healthcare Providers: https://www.fda.gov/media/600537/download Fact sheet for Patients: https://www.fda.gov/media/995573/download Methodology: Isothermal Nucleic Acid Amplification Source .NASOPHARYNGEAL SWAB [place], [place] CT BRAIN PERFUSIONon 020 CT BRAIN PERFUSION EXAMINATION: CTA OF THE HEAD WITH CONTRAST WITH PERFUSION 08/24/2020 8:40 pm: TECHNIQUE: CTA of the head/brain was performed with the administration of intravenous contrast. Multiplanar reformatted images are provided for review. MIP images are provided for review. Dose modulation, iterative reconstruction, and/or weight based adjustment of the mA/kV was utilized to reduce the radiation dose to as low as reasonably achievable. COMPARISON: None. HISTORY: ORDERING SYSTEM PROVIDED HISTORY: rt mca stroke TECHNOLOGIST PROVIDED HISTORY: rt mca stroke Reason for Exam: stroke Acuity: Unknown Type of Exam: Unknown FINDINGS: CT PERFUSION: There is no perfusion abnormality noted on the rCBF images to indicate area of infarction. There is mismatch with the T-max images demonstrating whole cerebral hypoperfusion, representing area of penumbra. rCBF < 30%: 3 cc T-max > 6 seconds: 496 cc Mismatch volume: 493 cc Mismatch ratio: 165.3 IMPRESSION: 1. Large mismatch perfusion abnormality demonstrating essentially whole-brain hypoperfusion with no significant area of infarction. Interpreted by: Magno Luevano MD Signed by: Magno Luevano MD 08/24/20 Final result Normal [facility] Isaac, [facility] Incoming Radiant Results From [facility] - 08/24/2020 9:54 PM EDT EXAMINATION: CTA OF THE HEAD WITH CONTRAST WITH PERFUSION 08/24/2020 8:40 pm: TECHNIQUE: CTA of the head/brain was performed with the administration of intravenous contrast. Multiplanar reformatted images are provided for review. MIP images are provided for review. Dose modulation, iterative reconstruction, and/or weight based adjustment of the mA/kV was utilized to reduce the radiation dose to as low as reasonably achievable. COMPARISON: None. HISTORY: ORDERING SYSTEM PROVIDED HISTORY: rt mca stroke TECHNOLOGIST PROVIDED HISTORY: rt mca stroke Reason for Exam: stroke Acuity: Unknown Type of Exam: Unknown FINDINGS: CT PERFUSION: There is no perfusion abnormality noted on the rCBF images to indicate area of infarction. There is mismatch with the T-max images demonstrating whole cerebral hypoperfusion, representing area of penumbra. rCBF < 30%: 3 cc T-max > 6 seconds: 496 cc Mismatch volume: 493 cc Mismatch ratio: 165.3 IMPRESSION: 1. Large mismatch perfusion abnormality demonstrating essentially whole-brain hypoperfusion with no significant area of infarction. [place] 1. Large mismatch perfusion abnormality demonstrating essentially whole-brain hypoperfusion with no significant area of infarction. [place] EXAMINATION: CTA OF THE HEAD WITH CONTRAST WITH PERFUSION 08/24/2020 8:40 pm: TECHNIQUE: CTA of the head/brain was performed with the administration of intravenous contrast. Multiplanar reformatted images are provided for review. MIP images are provided for review. Dose modulation, iterative reconstruction, and/or weight based adjustment of the mA/kV was utilized to reduce the radiation dose to as low as reasonably achievable. COMPARISON: None. HISTORY: ORDERING SYSTEM PROVIDED HISTORY: rt mca stroke TECHNOLOGIST PROVIDED HISTORY: rt mca stroke Reason for Exam: stroke Acuity: Unknown Type of Exam: Unknown FINDINGS: CT PERFUSION: There is no perfusion abnormality noted on the rCBF images to indicate area of infarction. There is mismatch with the T-max images demonstrating whole cerebral hypoperfusion, representing area of penumbra. rCBF < 30%: 3 cc T-max > 6 seconds: 496 cc Mismatch volume: 493 cc Mismatch ratio: 165.3 [place], [place] CT HEAD WO CONTRASTon 2019 CT HEAD WO CONTRAST EXAMINATION: CT OF THE HEAD WITHOUT CONTRAST 08/24/2020 7:12 pm TECHNIQUE: CT of the head was performed without the administration of intravenous contrast. Dose modulation, iterative reconstruction, and/or weight based adjustment of the mA/kV was utilized to reduce the radiation dose to as low as reasonably achievable. COMPARISON: None. HISTORY: ORDERING SYSTEM PROVIDED HISTORY: Stroke TECHNOLOGIST PROVIDED HISTORY: Stroke FINDINGS: Technically limited exam due to suboptimal positioning. Significant artifacts are limiting assessment of the posterior cranium and intracranial structures. BRAIN/VENTRICLES: There is no acute intracranial hemorrhage, mass effect or midline shift. No abnormal extra-axial fluid collection. The huang-white differentiation is maintained without evidence of an acute infarct. There is no evidence of hydrocephalus. ORBITS: The visualized portion of the orbits demonstrate no acute abnormality. SINUSES: The visualized paranasal sinuses and mastoid air cells demonstrate no acute abnormality. SOFT TISSUES/SKULL: No acute abnormality of the visualized skull or soft tissues. IMPRESSION: No acute intracranial abnormality. Interpreted by: Magno Luevano MD Signed by: Magno Luevano MD 08/24/20 Final result Normal [facility] CT Head WO Contraston 2019 EXAMINATION: CT OF THE HEAD WITHOUT CONTRAST 08/24/2020 7:12 pm TECHNIQUE: CT of the head was performed without the administration of intravenous contrast. Dose modulation, iterative reconstruction, and/or weight based adjustment of the mA/kV was utilized to reduce the radiation dose to as low as reasonably achievable. COMPARISON: None. HISTORY: ORDERING SYSTEM PROVIDED HISTORY: Stroke TECHNOLOGIST PROVIDED HISTORY: Stroke FINDINGS: Technically limited exam due to suboptimal positioning. Significant artifacts are limiting assessment of the posterior cranium and intracranial structures. BRAIN/VENTRICLES: There is no acute intracranial hemorrhage, mass effect or midline shift. No abnormal extra-axial fluid collection. The huang-white differentiation is maintained without evidence of an acute infarct. There is no evidence of hydrocephalus. ORBITS: The visualized portion of the orbits demonstrate no acute abnormality. SINUSES: The visualized paranasal sinuses and mastoid air cells demonstrate no acute abnormality. SOFT TISSUES/SKULL: No acute abnormality of the visualized skull or soft tissues. [facility] [place], [place] Isaac, [facility] Incoming Radiant Results From [facility] - 08/24/2020 7:37 PM EDT EXAMINATION: CT OF THE HEAD WITHOUT CONTRAST 08/24/2020 7:12 pm TECHNIQUE: CT of the head was performed without the administration of intravenous contrast. Dose modulation, iterative reconstruction, and/or weight based adjustment of the mA/kV was utilized to reduce the radiation dose to as low as reasonably achievable. COMPARISON: None. HISTORY: ORDERING SYSTEM PROVIDED HISTORY: Stroke TECHNOLOGIST PROVIDED HISTORY: Stroke FINDINGS: Technically limited exam due to suboptimal positioning. Significant artifacts are limiting assessment of the posterior cranium and intracranial structures. BRAIN/VENTRICLES: There is no acute intracranial hemorrhage, mass effect or midline shift. No abnormal extra-axial fluid collection. The huang-white differentiation is maintained without evidence of an acute infarct. There is no evidence of hydrocephalus. ORBITS: The visualized portion of the orbits demonstrate no acute abnormality. SINUSES: The visualized paranasal sinuses and mastoid air cells demonstrate no acute abnormality. SOFT TISSUES/SKULL: No acute abnormality of the visualized skull or soft tissues. IMPRESSION: No acute intracranial abnormality. [place] No acute intracrania l abnormality. [place] CTA HEAD NECK W CONTRASTon 1 CTA HEAD NECK W CONTRAST EXAMINATION: CTA OF THE HEAD AND NECK WITH CONTRAST 08/24/2020 8:17 pm: TECHNIQUE: CTA of the head and neck was performed with the administration of intravenous contrast. Multiplanar reformatted images are provided for review. MIP images are provided for review. Stenosis of the internal carotid arteries measured using NASCET criteria. Dose modulation, iterative reconstruction, and/or weight based adjustment of the mA/kV was utilized to reduce the radiation dose to as low as reasonably achievable. COMPARISON: None. HISTORY: ORDERING SYSTEM PROVIDED HISTORY: Stroke TECHNOLOGIST PROVIDED HISTORY: Stroke Reason for Exam: stroke alert FINDINGS: CTA NECK: AORTIC ARCH/ARCH VESSELS: No dissection or arterial injury. No significant stenosis of the brachiocephalic or subclavian arteries. 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 Thick atherosclerotic calcified plaques are noted at the level of the bilateral carotid bulbs. There is a short segment high-grade stenosis near the origin of the right cervical ICA measuring about 70% stenosis by NASCET criteria. The bilateral common carotid arteries demonstrate appropriate patency. VERTEBRAL ARTERIES: No dissection, arterial injury, or significant stenosis. SOFT TISSUES: The lung apices are clear. No cervical or superior mediastinal lymphadenopathy. The larynx and pharynx are unremarkable. No acute abnormality of the salivary and thyroid glands. BONES: No acute osseous abnormality. CTA HEAD: ANTERIOR CIRCULATION: There is abrupt occlusion at the midportion of the right M1 segment with lack of enhancement of the distal right M1 segment. Reconstituted flow is demonstrated in the distal right M2 branches and the sylvian branches. There is occlusion of the left cervical ICA continuing from the cervical occlusion intracranially up to the level of the supraclinoid ICA. There is reconstitution of the distal intracranial left ICA, most likely by way of collateral supply from the posterior communicating artery. There is appropriate patency of the bilateral ANGELINA. POSTERIOR CIRCULATION: No significant stenosis of the vertebral, basilar, or posterior cerebral arteries. No aneurysm. OTHER: No dural venous sinus thrombosis on this non-dedicated study. BRAIN: No mass effect or midline shift. No extra-axial fluid collection. The huang-white differentiation is maintained. 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 Occlusion of the midportion of the right M1 segment with reconstituted flow in the distal M2 segments of the MCA and in the sylvian branches. High-grade stenosis at the origin of the right cervical ICA measuring about 70% by NASCET criteria. RECOMMENDATIONS: Critical results were called by Dr. Magno Luevano to Dr. Santiago On 08/24/2020 at 21:04. Interpreted by: Magno Luevano MD Signed by: Magno Luevano MD 08/24/20 Final result Normal [facility] Isaac, [facility] Incoming Radiant Results From [facility] - 08/24/2020 9:14 PM EDT EXAMINATION: CTA OF THE HEAD AND NECK WITH CONTRAST 08/24/2020 8:17 pm: TECHNIQUE: CTA of the head and neck was performed with the administration of intravenous contrast. Multiplanar reformatted images are provided for review. MIP images are provided for review. Stenosis of the internal carotid arteries measured using NASCET criteria. Dose modulation, iterative reconstruction, and/or weight based adjustment of the mA/kV was utilized to reduce the radiation dose to as low as reasonably achievable. COMPARISON: None. HISTORY: ORDERING SYSTEM PROVIDED HISTORY: Stroke TECHNOLOGIST PROVIDED HISTORY: Stroke Reason for Exam: stroke alert FINDINGS: CTA NECK: AORTIC ARCH/ARCH VESSELS: No dissection or arterial injury. No significant stenosis of the brachiocephalic or subclavian arteries. 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 Thick atherosclerotic calcified plaques are noted at the level of the bilateral carotid bulbs. There is a short segment high-grade stenosis near the origin of the right cervical ICA measuring about 70% stenosis by NASCET criteria. The bilateral common carotid arteries demonstrate appropriate patency. VERTEBRAL ARTERIES: No dissection, arterial injury, or significant stenosis. SOFT TISSUES: The lung apices are clear. No cervical or superior mediastinal lymphadenopathy. The larynx and pharynx are unremarkable. No acute abnormality of the salivary and thyroid glands. BONES: No acute osseous abnormality. CTA HEAD: ANTERIOR CIRCULATION: There is abrupt occlusion at the midportion of the right M1 segment with lack of enhancement of the distal right M1 segment. Reconstituted flow is demonstrated in the distal right M2 branches and the sylvian branches. There is occlusion of the left cervical ICA continuing from the cervical occlusion intracranially up to the level of the supraclinoid ICA. There is reconstitution of the distal intracranial left ICA, most likely by way of collateral supply from the posterior communicating artery. There is appropriate patency of the bilateral ANGELINA. POSTERIOR CIRCULATION: No significant stenosis of the vertebral, basilar, or posterior cerebral arteries. No aneurysm. OTHER: No dural venous sinus thrombosis on this non-dedicated study. BRAIN: No mass effect or midline shift. No extra-axial fluid collection. The huang-white differentiation is maintained. 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 Occlusion of the midportion of the right M1 segment with reconstituted flow in the distal M2 segments of the MCA and in the sylvian branches. High-grade stenosis at the origin of the right cervical ICA measuring about 70% by NASCET criteria. RECOMMENDATIONS: Critical results were called by Dr. Magno Luevano to Dr. Santiago On 08/24/2020 at 21:04. [place], [place] EXAMINATION: CTA OF THE HEAD AND NECK WITH CONTRAST 08/24/2020 8:17 pm: TECHNIQUE: CTA of the head and neck was performed with the administration of intravenous contrast. Multiplanar reformatted images are provided for review. MIP images are provided for review. Stenosis of the internal carotid arteries measured using NASCET criteria. Dose modulation, iterative reconstruction, and/or weight based adjustment of the mA/kV was utilized to reduce the radiation dose to as low as reasonably achievable. COMPARISON: None. HISTORY: ORDERING SYSTEM PROVIDED HISTORY: Stroke TECHNOLOGIST PROVIDED HISTORY: Stroke Reason for Exam: stroke alert FINDINGS: CTA NECK: AORTIC ARCH/ARCH VESSELS: No dissection or arterial injury. No significant stenosis of the brachiocephalic or subclavian arteries. 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 Thick atherosclerotic calcified plaques are noted at the level of the bilateral carotid bulbs. There is a short segment high-grade stenosis near the origin of the right cervical ICA measuring about 70% stenosis by NASCET criteria. The bilateral common carotid arteries demonstrate appropriate patency. VERTEBRAL ARTERIES: No dissection, arterial injury, or significant stenosis. SOFT TISSUES: The lung apices are clear. No cervical or superior mediastinal lymphadenopathy. The larynx and pharynx are unremarkable. No acute abnormality of the salivary and thyroid glands. BONES: No acute osseous abnormality. CTA HEAD: ANTERIOR CIRCULATION: There is abrupt occlusion at the midportion of the right M1 segment with lack of enhancement of the distal right M1 segment. Reconstituted flow is demonstrated in the distal right M2 branches and the sylvian branches. There is occlusion of the left cervical ICA continuing from the cervical occlusion intracranially up to the level of the supraclinoid ICA. There is reconstitution of the distal intracranial left ICA, most likely by way of collateral supply from the posterior communicating artery. There is appropriate patency of the bilateral ANGELINA. POSTERIOR CIRCULATION: No significant stenosis of the vertebral, basilar, or posterior cerebral arteries. No aneurysm. OTHER: No dural venous sinus thrombosis on this non-dedicated study. BRAIN: No mass effect or midline shift. No extra-axial fluid collection. The huang-white differentiation is maintained. [place] Complete occlusion o f the left cervical ICA at the level of the bifurcation extending intracranially up to the supraclinoid intracranial ICA with reconstitution by way of the posterior communicating artery. Occlusion of the midportion of the right M1 segment with reconstituted flow in the distal M2 segments of the MCA and in the sylvian branches. High-grade stenosis at the origin of the right cervical ICA measuring about 70% by NASCET criteria. RECOMMENDATIONS: Critical results were called by Dr. Magno Luevano to Dr. Santiago On 08/24/2020 at 21:04. [place] Otheron 08-24-2020 SARS-CoV-2 [place] [id number] 08-24-2020 SARS-CoV-2 Source .NASOPHARYNGEAL SWAB Normal [facility] Comment on above: Performed By: #### C OVID #### [facility] [address] [place] [address] [id number] Aircraft Engineer: Manuelito Mckay MD STROKE PANELon 08-24-2020 % CKMB 1.9 % 0 - 3.5 % [place] Anion gap [Moles/Vol] 13 mmol/L 9 - 17 mmol/L [place] aPTT Coag (Bld) [Time] 24.8 s [place] Comment on above: IV Heparin Therapy Range: 48.6-77.8 Basophils (Bld) [#/Vol] 0.05 10*3/uL [place] Basophils/100 WBC (Bld) 0 % 0 - 2 % [place] Bun/Cre Ratio NOT REPORTED [place] Calcium [Mass/Vol] 9.1 mg/dL 8.6 - 10. 4 mg/dL [place] Chloride [Moles/Vol] 102 mmol/L 98 - 10 7 mmol/L [place] CK.MB [Mass/Vol] COMPATIBLE WITH SKELETAL MUSCLE ORIGIN [place] CK.MB [Mass/Vol] 6 ng/mL <10.5 [place] CO2 [Moles/Vol] 25 mmol/L 20 - 31 mmol/L [place] Creatinine [Mass/Vol] 1.01 mg/dL 0.7 - 1.2 mg/dL [place] Differential Type NOT REPORTED [place] Eosinophils (Bld) [#/Vol] 0.21 10*3/uL [place] Eosinophils/100 WBC (Bld) 2 % 1 - 4 % [place] Erythrocyte distribution width (RBC) [Ratio] 13.2 % 11.8 - 14.4 % [place] GFR >60 >60 mL/min [place] GFR Non- >60 >60 mL/min [place] GFR/1.73 sq M predicted among non-blacks MDRD (S/P/Bld) [Vol rate/Area] NOT REPORTED [place] GFR/1.73 sq M predicted among non-blacks MDRD (S/P/Bld) [Vol rate/Area] [place] Comment on above: Average GFR for 70 o r more years old: 75 mL/min/1.73sq m Chronic Kidney Disease: <60 mL/min/1.73sq m Kidney failure: <15 mL/min/1.73sq m eGFR calculated using average adult body mass. Additional eGFR calculator available at: http://www.KXEN/multiple_crcl_2012.htm Glucose [Mass/Vol] 134 mg/dL High 70 - 99 mg/dL [place] Hematocrit (Bld) [Volume fraction] 48.3 % 40.7 - 50.3 % [place] Hemoglobin (Bld) [Mass/Vol] 16.0 g/dL 13 - 17 g/dL [place] Immature granulocytes (Bld) [#/Vol] 0 % 0 [place] Immature granulocytes (Bld) [#/Vol] 0.05 10*3/uL [place] INR Coag (PPP) [Relative time] 0.9 {INR} [place] Comment on above: Therapeutic Range: Moderate Anticoagulant Intensity: INR = 2.0-3.0 High Anticoagulant Intensity: INR = 2.5-3.5 Interpretation and review of laboratory results Abnormal [place] Lymphocytes (Bld) [#/Vol] 4.55 10*3/uL [place] Lymphocytes/100 WBC (Bld) 38 % 24 - 43 % [place] MCH (RBC) [Entitic mass] 31.9 pg 25.2 - 33.5 pg [place] MCHC (RBC) [Mass/Vol] 33.1 g/dL 28.4 - 34.8 g/dL [place] MCV (RBC) [Entitic vol] 96.4 fL 82.6 - 102.9 fL [place] Monocytes (Bld) [#/Vol] 1.00 10*3/uL [place] Monocytes/100 WBC (Bld) 8 % 3 - 12 % [place] Myoglobin [Mass/Vol] 49 ng/mL 28 - 72 ng/mL M [place] Platelet mean volume (Bld) [Entitic vol] 11.6 fL 8.1 - 13.5 fL [place] Platelets (Bld) [#/Vol] 241 10*3/uL [place] Platelets (Bld) [#/Vol] NOT REPORTED [place] Potassium [Moles/Vol] 3.6 mmol/L Low 3.7 - 5.3 mmol/L [place] PT Coag (PPP) [Time] 9.9 s [place] RBC (Bld) [#/Vol] 5.01 10*6/uL 4.21 - 5.7 7 m/uL [place] RBC morphology finding Nom (Bld) NOT REPORTED [place] Segmented neutrophils/100 WBC (Bld) 52 % 36 - 65 % [place] Segs Absolute 6.14 [place] Sodium [Moles/Vol] 140 mmol/L 135 - 144 mmol/L [place] Total CK 314 U/L High 39 - 308 U/L [place] Troponin I.cardiac [Mass/Vol] NOT REPORTED [place] Troponin T.cardiac [Mass/Vol] NOT REPORTED <0.03 ng/mL [place] Troponin, High Sensitivity 15 ng/L 0 - 22 ng/L [place] Comment on above: High Sensitivity Troponin values cannot be compared with other Troponin methodologies. Patients with high levels of Biotin oral intake (i.e >5mg/day) may have falsely decreased Troponin levels. Samples collected within 8 hours of biotin intake may require additional information for diagnosis. Urea nitrogen [Mass/Vol] 10 mg/dL 8 - 23 mg/dL [place] WBC (Bld) [#/Vol] 12.0 10*3/uL [place] WBC (Bld) [#/Vol] 0.0 10*3/uL 0.0 per 10 0 WBC [place] WBC Morphology NOT REPORTED [place] Stroke Panelon 08-24-2020 % CKMB 1.9 % Normal 0.0-3.5 [facility] Comment on above: Performed By: #### S EBKE #### [address] [id number] Aircraft Engineer: Manuelito Mckay MD (cont.) [facility] Comment on above: Result Comment: Aver age GFR for 70 or more years old: 75 mL/min/1.73sq m Chronic Kidney Disease: <60 mL/min/1.73sq m Kidney failure: <15 mL/min/1.73sq m eGFR calculated using average adult body mass. Additional eGFR calculator available at: http://www.Savored.Trigemina/multiple_crcl_2011.htm Performed By: #### S YENNI #### [address] [address] Aircraft Engineer: Manuelito Mckay MD Anion gap [Moles/Vol] 13 mmol/L Normal 9-17 [facility] Comment on above: Performed By: #### S YENNI #### [address] [id number] Aircraft Engineer: Manuelito Mckay MD Calcium [Mass/Vol] 9.1 mg/dL Normal 8.6-10.4 [facility] Comment on above: Performed By: #### S EBKE #### [address] [address] Aircraft Engineer: Manuelito Mckay MD Chloride [Moles/Vol] 102 mmol/L Normal 98-107 [facility] Comment on above: Performed By: #### S EBKE #### [address] [address] Aircraft Engineer: Manuelito Mckay MD CK [Catalytic activity/Vol] 314 U/L High 39-308 [facility] Comment on above: Performed By: #### S EBKE #### [address] [address] Aircraft Engineer: Manuelito Mckay MD CK.MB [Mass/Vol] COMPATIBLE WITH SKELETAL MUSCLE ORIGIN Normal [facility] Comment on above: Performed By: #### S TROKE #### [address] [address] Aircraft Engineer: Manuelito Mckay MD CO2 [Moles/Vol] 25 mmol/L Normal 20-31 [facility] Comment on above: Performed By: #### S TROKE #### [address] [address] Aircraft Engineer: Manuelito Mckay MD Creatinine [Mass/Vol] 1.01 mg/dL Normal 0.70-1.20 [facility] Comment on above: Performed By: #### S TROKE #### [address] [address] Aircraft Engineer: Manuelito Mckay MD GFR, Amer >60 Normal >60 [facility] Comment on above: Performed By: #### S TROKE #### [address] [address] Aircraft Engineer: Manuelito Mckay MD GFR,non Amer >60 Normal >60 [facility] Comment on above: Performed By: #### S TROKE #### [address] [address] Aircraft Engineer: Manuelito Mckay MD Glucose [Mass/Vol] 134 mg/dL High 70-99 [facility] Comment on above: Performed By: #### S TROKE #### [address] [address] Aircraft Engineer: Manuelito Mckay MD Potassium [Moles/Vol] 3.6 mmol/L Low 3.7-5.3 [facility] Comment on above: Performed By: #### S TROKE #### [address] [address] Aircraft Engineer: Manuelito Mckay MD Sodium [Moles/Vol] 140 mmol/L Normal 135-144 [facility] Comment on above: Performed By: #### S TROKE #### [facility] [address] [place] [id number] Aircraft Engineer: Manuelito Mckay MD Urea nitrogen [Mass/Vol] 10 mg/dL Normal 8-23 [facility] Comment on above: Performed By: #### S TROKE #### [facility] [address] [place] [id number] Aircraft Engineer: Manuelito Mckay MD CK-MB,Quantitative 6.0 ng/mL Normal <10.5 [facility] Comment on above: Performed By: #### S TROKE #### [facility] [address] [place] [id number] Aircraft Engineer: Manuelito Mckay MD Myoglobin [Mass/Vol] 49 ng/mL Normal 28-72 [facility] Comment on above: Performed By: #### S EBKE #### [facility] [address] [place] [id number] Aircraft Engineer: Manuelito Mckay MD Troponin, High Sens 15 ng/L Normal 0-22 [facility] Comment on above: Result Comment: High Sensitivity Troponin values cannot be compared with other Troponin methodologies. Patients with high levels of Biotin oral intake (i.e >5mg/day) may have falsely decreased Troponin levels. Samples collected within 8 hours of biotin intake may require additional information for diagnosis. Performed By: #### S TROKE #### [facility] [address] [place] [id number] Aircraft Engineer: Manuelito Mckay MD aPTT Coag (Bld) [Time] 24.8 s Normal 20.5-30.5 [facility] Comment on above: Result Comment: IV Heparin Therapy Range: 48.6-77.8 Performed By: #### S TROKE #### [address] [address] Aircraft Engineer: Manuelito Mckay MD INR Coag (PPP) [Relative time] 0.9 {INR} Normal [facility] Comment on above: Result Comment: Therapeutic Range: Moderate Anticoagulant Intensity: INR = 2.0-3.0 High Anticoagulant Intensity: INR = 2.5-3.5 Performed By: #### S YENNI #### [address] [id number] Aircraft Engineer: Manuelito Mckay MD PT Coag (PPP) [Time] 9.9 s Normal 9.0-12.0 [facility] Comment on above: Performed By: #### S YENNI #### [address] [address] Aircraft Engineer: Manuelito Mckay MD Abs. Basophil 0.05 k/uL Normal 0.00-0.20 [facility] Comment on above: Performed By: #### S YENNI #### [address] [address] Aircraft Engineer: Manuelito Mckay MD Abs.Imm.Granulocyte 0.05 k/uL Normal 0.00-0.30 [facility] Comment on above: Performed By: #### S YENNI #### [address] [address] Aircraft Engineer: Manuelito Mckay MD Abs.Neutrophil (Seg) 6.14 k/uL Normal 1.50-8.10 [facility] Comment on above: Performed By: #### S YENNI #### [facility] [address] [place] [id number] Aircraft Engineer: Manuelito Mckay MD Basophils/100 WBC (Bld) 0 % Normal 0-2 [facility] Comment on above: Performed By: #### S YENNI #### [address] [address] Aircraft Engineer: Manuelito Mckay MD Eosinophils (Bld) [#/Vol] 0.21 10*3/uL Normal 0.00-0.44 [facility] Comment on above: Performed By: #### S TROKE #### [address] [address] Aircraft Engineer: Manuelito Mckay MD Eosinophils/100 WBC (Bld) 2 % Normal 1-4 [facility] Comment on above: Performed By: #### S TROKE #### [address] [address] Aircraft Engineer: Manuelito Mckay MD Erythrocyte distribution width (RBC) [Ratio] 13.2 % Normal 11.8-14.4 [facility] Comment on above: Performed By: #### S EBKE #### [address] [address] Aircraft Engineer: Manuelito Mckay MD Hematocrit (Bld) [Volume fraction] 48.3 % Normal 40.7-50.3 [facility] Comment on above: Performed By: #### S TROKE #### [address] [address] Aircraft Engineer: Manuelito Mckay MD Hemoglobin (Bld) [Mass/Vol] 16.0 g/dL Normal 13.0-17.0 [facility] Comment on above: Performed By: #### S TROKE #### [address] [address] Aircraft Engineer: Manuelito Mckay MD Immature granulocytes (Bld) [#/Vol] 0 % Normal 0 [facility] Comment on above: Performed By: #### S TROKE #### [address] [address] Aircraft Engineer: Manuelito Mckay MD Lymphocytes (Bld) [#/Vol] 4.55 10*3/uL High 1.10-3.70 [facility] Comment on above: Performed By: #### S YENNI #### [address] [address] Aircraft Engineer: Manuelito Mckay MD Lymphocytes/100 WBC (Bld) 38 % Normal 24-43 [facility] Comment on above: Performed By: #### Fermin HYMAN #### [place] [address] Aircraft Engineer: Manuelito Mckay MD MCH (RBC) [Entitic mass] 31.9 pg Normal 25.2-33.5 [facility] Comment on above: Performed By: #### Fermin HYMAN #### [place] [address] Aircraft Engineer: Manuelito Mckay MD MCHC (RBC) [Mass/Vol] 33.1 g/dL Normal 28.4-34.8 [facility] Comment on above: Performed By: #### Fermin HYMAN #### [place] [address] Aircraft Engineer: Manuelito Mckay MD MCV (RBC) [Entitic vol] 96.4 fL Normal 82.6-102.9 [facility] Comment on above: Performed By: #### Fermin HYMAN #### [place] [address] Aircraft Engineer: Manuelito Mckay MD Monocytes (Bld) [#/Vol] 1.00 10*3/uL Normal 0.10-1.20 [facility] Comment on above: Performed By: #### Fermin HYMAN #### [address] [address] Aircraft Engineer: Manuelito Mckay MD Monocytes/100 WBC (Bld) 8 % Normal 3-12 [facility] Comment on above: Performed By: #### S YENNI #### [address] [address] Aircraft Engineer: Manuelito Mckay MD Neutrophil (Seg) 52 % Normal 36-65 [facility] Comment on above: Performed By: #### S TROKE #### [address] [address] Aircraft Engineer: Manuelito Mckay MD NRBC Automated 0.0 per 100 WBC Normal 0.0 [facility] Comment on above: Performed By: #### S TROKE #### [address] [address] Aircraft Engineer: Manuelito Mckay MD Platelet mean volume (Bld) [Entitic vol] 11.6 fL Normal 8.1-13.5 [facility] Comment on above: Performed By: #### S EBKE #### [address] [address] Aircraft Engineer: Manuelito Mckay MD Platelets (Bld) [#/Vol] 241 10*3/uL Normal 138-453 [facility] Comment on above: Performed By: #### S TROKE #### [address] [address] Aircraft Engineer: Manuelito Mckay MD RBC (Bld) [#/Vol] 5.01 10*6/uL Normal 4.21-5.77 [facility] Comment on above: Performed By: #### S TROKE #### [address] [address] Aircraft Engineer: Manuelito Mckay MD WBC (Bld) [#/Vol] 12.0 10*3/uL High 3.5-11.3 [facility] Comment on above: Performed By: #### S TROKE #### [address] [address] Aircraft Engineer: Manuelito Mckay MD Auto Diff Performed NOT REPORTED Normal [facility] Comment on above: Performed By: #### S TROKE #### [address] [address] Aircraft Engineer: Manuelito Mckay MD BUN/CRE Ratio NOT REPORTED Normal 9-20 [facility] Comment on above: Performed By: #### S TROKE #### [address] [address] Aircraft Engineer: Manuelito Mckay MD Platelets (Bld) [#/Vol] NOT REPORTED Normal [facility] Comment on above: Performed By: #### S TROKE #### [address] [address] Aircraft Engineer: Manuelito Mckay MD RBC morphology finding Nom (Bld) NOT REPORTED Normal [facility] Comment on above: Performed By: #### S TROKE #### [address] [address] Aircraft Engineer: Manuelito Mckay MD Staging: NOT REPORTED Normal [facility] Comment on above: Performed By: #### S TROKE #### [address] [address] Aircraft Engineer: Manuelito Mckay MD Troponin I.cardiac [Mass/Vol] NOT REPORTED Normal [facility] Comment on above: Performed By: #### S TROKE #### [address] [address] Aircraft Engineer: Manuelito Mckay MD Troponin T.cardiac [Mass/Vol] NOT REPORTED Normal <0.03 [facility] Comment on above: Performed By: #### S TROKE #### [address] [id number] Aircraft Engineer: Manuelito Mckay MD WBC Morphology NOT REPORTED Normal [facility] Comment on above: Performed By: #### S YENNI #### [facility] [address] [place] [address] Aircraft Engineer: Manuelito Mckay MD Vital Signs Date Time Vital Sign Value Performing Clinician Poppy galloway 08-26-2020 14:02-0400 BP Diastolic 76 mm[Hg] [facility] [place] [place] 08-26-2020 14:02-0400 BP Systolic 124 mm[Hg] [facility] [place] 08-26-2020 14:02-0400 Pulse (Heart Rate) 61 /min [place], [place] 08-26-2020 14:02-0400 Pulse Oximetry 91 % [place] 08-26-2020 14:02-0400 Respiratory Rate 20 /min [place] 08-26-2020 12:02-0400 Body Temperature 98.2 [degF] [place] 08-24-2020 20:09-0400 BMI (Body Mass Index) 30.34 [facility] [place] 08-24-2020 20:09-0400 Body weight 104.33 kg [place] 08-24-2020 20:09-0400 Height 185.4 cm [place] Encounters Encounter Date Encounter Type Care Provider Facility Start: 10-20-2023 End: [facility] Start: 10-08-2023 End: 10-08-2023 ambulatory [facility] Start: 09-01-2023 End: 10-08-2023 ambulatory [facility] Start: 08-14-2023 End: 08-14-2023 ambulatory [facility] Start: 02-12-2023 End: 02-13-[address] JESSICA DELATORRE . Facility: Start: 08-24-2020 End: 08-26-2020 Evaluation and management of inpatient VIVIANE CHIRRI [facility] Start: 08-24-2020 End: 08-26-2020 Evaluation and management of inpatient Harjinder Gottlieb Work Phone: [phone] Comment on above: Cerebrovascular acci dent (CVA), unspecified mechanism (HCC) (Primary Dx) Procedures Date Procedure Procedure Detail Performing Clinician Start: 02-12-[address] TELLY DELATORRE . Comment on above: Performed By: #### P [facility] #### [facility] [address] [place] [address] Dr. Rebel Victoria Start: 08-26-2020 DISCHARGE PATIENT VIVIANE CHIRRI Start: 08-26-2020 Basic metabolic pane l calcium total VIVIANE CHIRRI Start: 08-26-2020 Blood count complete auto&auto difrntl wbc VIVIANE CHIRRI Start: 08-26-2020 INCENTIVE SPIROMETRY RT VIVIANE CHIRRI Start: 08-26-2020 INITIATE OXYGEN THER APY PROTOCOL VIVIANE CHIRRI Start: 08-26-2020 Basic metabolic pane l calcium total Mera Mooney Work Phone: Start: 08-26-2020 Blood count complete auto&auto difrntl wbc Mera Mooney Work Phone: Start: 08-26-2020 Assay of troponin quantitative VIVIANE CHIRRI Start: 08-26-2020 Blood count complete automated VIVIANE CHIRRI Start: 08-26-2020 Hemoglobin glycosylated a1c VIVIANE CHIRRI Start: 08-26-2020 Lipid panel VIVIANE CHIR RI Start: 08-26-2020 Assay of troponin quantitative Angel L Scaff Work Phone: Start: 08-26-2020 Blood count complete automated Angel L Scaff Work Phone: Start: 08-26-2020 Hemoglobin glycosylated a1c Angel L Scaff Work Phone: Start: 08-26-2020 Lipid panel Angel L Sc aff Work Phone: Start: 08-26-2020 INTAKE AND OUTPUT VIVIANE CHIRRI Start: 08-26-2020 Ct head/brain w/o co ntrast material VIVIANE CHIRRI Start: 08-25-2020 Ct head/brain w/o co ntrast material Amjad Tarboosh Start: 08-25-2020 Echo tthrc r-t 2d w/wom-mode compl spec&colr d VIVIANE CHIRRI Start: 08-25-2020 Echo tthrc r-t 2d w/wom-mode compl spec&colr d Angel Braga Linda Work Phone: Start: 08-25-2020 DIET GENERAL VIVIANE CHIR RI Start: 08-25-2020 INCENTIVE SPIROMETRY RT VIVIANE CHIRRI Start: 08-25-2020 INITIATE OXYGEN THER APY PROTOCOL VIVIANE CHIRRI Start: 08-25-2020 ENCOURAGE DEEP BREAT ISREAL AND COUGHING VIVIANE CHIRRI Start: 08-25-2020 FULL CODE VIVIANE CHIR RI Start: 08-25-2020 INCENTIVE SPIROMETRY RT VIVIANE CHIRRI Start: 08-25-2020 IP CONSULT TO PHARMACY VIVIANE CHIRRI Start: 08-25-2020 OT EVAL AND TREAT VIVIANE CHIRRI Start: 08-25-2020 PHARMACY TO CHANGE B ASE FLUIDS VIVIANE CHIRRI Start: 08-25-2020 PLACE INTERMITTENT PNEUMATIC COMPRESSION DEVICE VIVIANE CHIRRI Start: 08-25-2020 PT EVAL AND TREAT VIVIANE CHIRRI Start: 08-25-2020 PULSE OXIMETRY, CONTINUOUS VIVIANE CHIRRI Start: 08-25-2020 REASON FOR NO CHEMIC AL VTE PROPHYLAXIS VIVIANE CHIRRI Start: 08-25-2020 CLINICAL CARE MANAGER EVAL AND TREAT AGUSTIN L CHIRRI Start: 08-25-2020 TELEMETRY MONITORING JA MAL CHIRRI Start: 08-25-2020 ADVANCE DIET TOLE RATED (NURSING COMMUNICATION) VIVIANE CHIRRI Start: 08-25-2020 ELEVATE HOB VIVIANE CHIR RI Start: 08-25-2020 FALL PRECAUTIONS VIVIANE CHIRRI Start: 08-25-2020 INITIATE OXYGEN THER APY PROTOCOL VIVIANE CHIRRI Start: 08-25-2020 INSERT PERIPHERAL IV JA MAL CHIRRI Start: 08-25-2020 NEURO/VASCULAR CHECKS J AMAL CHIRRI Start: 08-25-2020 NO ANTICOAGULANTS VIVIANE CHIRRI Start: 08-25-2020 NOTIFY PHYSICIAN (SPECIFY) VIVIANE CHIRRI Start: 08-25-2020 NURSING COMMUNICATION J AMAL CHIRRI Start: 08-25-2020 NURSING SWALLOW ASSESSMENT VIVIANE CHIRRI Start: 08-25-2020 PROVIDE PATIENT EDUC ATION MATERIALS VIVIANE CHIRRI Start: 08-25-2020 VITAL SIGNS VIVIANE CHIR RI Start: 08-25-2020 VITAL SIGNS - NOTIFY VIVIANE CHIRRI Start: 08-25-2020 Ct head/brain w/o co ntrast material VIVIANE CHIRRI Start: 08-25-2020 Ct head/brain w/o co ntrast material Parviz Bacongauri Work Phone: Start: 08-25-2020 BEDREST VIVIANE CHIR RI Start: 08-25-2020 NOTIFY PHYSICIAN (SPECIFY) VIVIANE CHIRRI Start: 08-25-2020 Slctv cath carotid/i nnom art angio intrcranl art VIVIANE CHIRRI Start: 08-25-2020 ASSESS VIVIANE CHIR RI Start: 08-25-2020 INITIATE OXYGEN THER APY PROTOCOL VIVIANE CHIRRI Start: 08-25-2020 INTAKE AND OUTPUT VIVIANE CHIRRI Start: 08-25-2020 IP CONSULT TO PHYSIC AL MEDICINE REHAB VIVIANE CHIRRI Start: 08-25-2020 MISCELLANEOUS NURSIN G CARE ORDER (SPECIFY) VIVIANE CHIRRI Start: 08-25-2020 NEURO CHECKS VIVIANE CHIR RI Start: 08-25-2020 NURSING COMMUNICATION J AMAL CHIRRI Start: 08-25-2020 VITAL SIGNS VIVIANE CHIR RI Start: 08-24-[address] Ct perfusion w/contrast cbf VIVIANE CHIRRI Start: 08-24-2020 PATIENT STATUS (FROM ED OR OR/PROCEDURAL) VIVIANE CHIRRI Start: 08-24-2020 COVID-19 VIVIANE CHIR RI Start: 08-24-2020 IP CONSULT TO NEUROC RITICAL CARE VIVIANE CHIRRI Start: 08-24-2020 Ct angiography head w/contrast/noncontrast VIVIANE CHIRRI Start: 08-24-2020 Ecg routine ecg w/le ast 12 lds w/i&r VIVIANE CHIRRI Start: 08-24-2020 EKG REPORT VIVIANE CHIR RI Start: 08-24-2020 Lipid panel VIVIANE CHIR RI Start: 08-24-2020 IP CONSULT TO STROKE TEAM VIVIANE CHIRRI Start: 08-24-2020 Ct perfusion w/contrast cbf Moo Torres Hutchinson Work Phone: Start: 08-24-2020 Ct head/brain w/o co ntrast material VIVIANE CHIRRI Start: 08-24-2020 COVID-19 James Cornejo Work Phone: Start: 08-24-2020 Ct angiography head w/contrast/noncontrast James Tomas Clemente Work Phone: Start: 08-24-2020 Ecg routine ecg w/le ast 12 lds i&r only James Tomas Clemente Work Phone: Start: 08-24-2020 EKG REPORT Hpf Scanni ng Start: 08-24-2020 STROKE PANEL James Tomas Clemente Work Phone: Start: 08-24-2020 Ct head/brain w/o co ntrast material Harjinder Tomas Chery Work Phone: Plan of Treatment Date Care Activity Detail Author Start: 08-24-2020 Annual Wellness Visi t (AWV) Annual Wellness Visit (AWV) [place], [place] Start: 07-03-2020 Influenza vaccination Flu vaccine (# 1) [place], [place] Start: 2006 Pneumococcal 65+ yea rs Vaccine (1 of 1 - PPSV23) Pneumococcal 65+ years Vaccine (1 of 1 - PPSV23) [place], [place] Start: 1991 Shingles Vaccine (1 of 2) Lim gles Vaccine (1 of 2) [place], [place] Start: 1960 DTaP/Tdap/Td vaccine (1 - Tdap) DTaP/Tdap/Td vaccine (1 - Tdap) [place], [place] Start: 1951 Lipid panel Lipid screen [place], [place] Basic metabolic 2000 panel BASIC METABOLIC PANEL Lab Routine Daily until discontinued starting 08/26/2020, 1 completed [place] Comment on above: Daily until disconti nued starting 08/26/2020, 1 completed End: 08-26-2020 Continuous pulse oximetry Pulse oximetry, continuous Respiratory Care Routine Every 4hr for 24 Hours starting 08/25/2020 until 08/26/2020 [place] Comment on above: Every 4hr for 24 Rebecca rs starting 08/25/2020 until 08/26/2020 Intermittent pulse oximetry Pulse Oximetry Spot Check Respiratory Care Routine As Needed until discontinued starting 08/24/2020 [place] Comment on above: As Needed until disc ontinued starting 08/24/2020 End: 08-24-2020 IR ANGIOGRAM CAROTID C EREBRAL BILATERAL IR ANGIOGRAM CAROTID C EREBRAL BILATERAL Imaging Routine Once for 1 Occurrences starting 08/24/2020 until 08/24/2020 [facility] [place] Comment on above: Once for 1 Occurrenc es starting 08/24/2020 until 08/24/2020 IR ANGIOGRAM CAROTID C EREBRAL BILATERAL IR ANGIOGRAM CAROTID C EREBRAL BILATERAL Imaging STAT 08/24/2020 11[facility]44 [facility] [place] Comment on above: Daily until disconti nued starting 08/24/2020 Daily until disconti nued starting 08/25/2020 Phase I & II - meter ed glucose Phase I & II - metered glucose Point of Care Testing Routine As Needed until discontinued starting 08/24/2020 [facility] [place] Comment on above: As Needed until disc ontinued starting 08/24/2020 End: 08-25-2020 Speech and language therapy regime Speech Language Pathology (CLINICAL CARE MANAGER) eval and treat CLINICAL CARE MANAGER Routine One Time for 1 Occurrences starting 08/25/2020 until 08/25/2020 [facility] [place] Comment on above: One Time for 1 Occur rences starting 08/25/2020 until 08/25/2020 Spirometry panel Incentive estella metry Respiratory Care Routine Daily until discontinued starting 08/25/2020 [place] Comment on above: Daily until disconti nued starting 08/25/2020 Payers Date Payer Category Payer Medicare [id number] 1940 Unknown [id number] 1940 Unknown [id number] Social History Date Type Detail Facility Start: 08-24-2020 Tobacco smoking stat us [facility]IS Unknown if ever smoked [place], [place] Sex Assigned At Not on file [place] Exposure to SARS-CoV -2 (event) Not sure [place] Progress note 10-20-2023 Note Date & Type Note Facility 10-20-2023 Note [facility] Consult Note Reason for visit:Placed on close TODDLER GUIDE to Afib/ CMP HPI: Daisy Zuñiga Sr. is a 83 y.o. year old with past medical history of syncope as well as carotid artery stenosis noted to have an occluded left ICA was previously seen by Dr. HARVEY. He was noted to have atrial fibrillation in the clinic which was new for him. He was evaluated and noted to have cardiomyopathy with an EF of 25%. He was taken for a cardiac cath which showed no evidence of CAD to support the cardiomyopathy. A Holter monitor that was performed showed evidence of nonsustained ventricular tachycardia. he is here and is extremely unpleasant to have a conversation as he is rude and unhappy to be in a doctor's office. he states that he will do what ever he wants irrespective of what is being said. PMH: No past medical history on file. PSH: No past surgical history on file. SH: Social Determinants of Health Tobacco Use: High Risk (10/08/2023) Patient History Smoking Tobacco Use: Every Day Smokeless Tobacco Use: Never Passive Exposure: Not on file Alcohol Use: Not on file Financial Resource Strain: Not on file Food Insecurity: Not on file Transportation Needs: Not on file Physical Activity: Not on file Stress: Not on file Social Connections: Not on file Intimate Partner Violence: Not on file Depression: Not on file Housing Stability: Not on file Allergies: No Known Allergies Weight: 108kg Visit Vitals BP 120/80 (BP Location: Right arm, Patient Position: Sitting) Pulse 65 Ht 1.829 m (6') Wt 108 kg (239 lb) SpO2 97% BMI 32.41 kg/m??? Smoking Status Every Day BSA 2.34 m??? Meds: Current Outpatient Medications on File Prior to Visit Medication Sig Dispense Refill amiodarone (Pacerone) 200 mg tablet Take 2 tablets (400 mg) by mouth in the morning for 14 days, THEN 1 tablet (200 mg) in the morning. (Patient taking differently: Still on 200mg bid for a few more days- then will go down to 200mg daily) 58 tablet 6 apixaban (Eliquis) 5 mg tablet Take 1 tablet (5 mg) by mouth in the morning and at bedtime. 180 tablet 3 aspirin 81 mg chewable tablet Chew 1 tablet in the morning. atorvastatin (Lipitor) 40 mg tablet Take 1 tablet by mouth at bedtime. metoprolol succinate XL (Toprol-XL) 25 mg 24 hr tablet Take 2 tablets (50 mg) by mouth in the morning. Do not crush or chew. 60 tablet 0 sacubitril-valsartan (Entresto) 49-51 mg tablet Take 1 tablet by mouth in the morning and at bedtime. 60 tablet 0 No current facility-administered medications on file prior to visit. ROS: Review of Systems Constitutional: Positive for malaise/fatigue. Eyes: Positive for blurred vision. All other systems reviewed and are negative. Physical Exam: Constitutional General Appearance: well-nourished, well-developed, appears stated age but very rude and 'grumpy states he does not want to be here and is seeing a physician on account of his . Level of Distress: comfortable Psychiatric Mental Status: alert, irritable Orientation: oriented to time, place, and person Insight: good judgement Eyes Lids and Conjunctivae: non-injected, no xanthelasma ENMT Ears: no lesions on external ear Nose: no lesions on external nose Oropharynx: no cyanosis, no pallor Neck Neck: supple, trachea midline Carotid Arteries: bilateral normal upstroke, no bruits Jugular Veins: normal jugular venous pressure Thyroid: not enlarged Lungs Respiratory Effort: unlabored Chest Exam: normal curvature, no thoracic deformity Auscultation: clear, no wheezing, no rales, no rhonchi Cardiovascular Rate And Rhythm: irregular Heart Sounds: normal S1, normal s2, no gallop Systolic Murmur: not heard Diastolic Murmur: not heard Extremities: no cyanosis, no edema, no peripheral signs of emboli Peripheral Pulses Radial Pulse: normal Abdomen Inspection and Palpation: soft, non distended, no bruit, non tender Musculoskeletal Inspection: no joint swelling Neurologic Gait: normal gait Skin Inspection and Palpation: warm and dry Nails: no clubbing Labs: @LABRESULTS@ No results found for: CHOLESTEROL TOTAL , HDL , LDL CALC , LDL DIRECT , TRIGLYCERIDES , TSH , T3 TOTAL , T4 TOTAL , THYROID PEROXIDASE AB , BNP EKG: Encounter Date: 10/08/23 ECG 12 lead Result Value Ventricular Rate 88 QRS DURATION 100 QT Interval 370 QTC CALCULATION(BAZETT) 447 R-[place] 5 T Wave [place] 108 Impression Atrial fibrillation with premature ventricular or aberrantly conducted complexes Nonspecific ST and T wave abnormality Abnormal ECG When compared with ECG of 01-SEP-2023 10:21, No significant change Confirmed by Arash ROCHA, L.S. (2) on 10/08/2023 2:03:20 PM Echo: 08/21/23 Stress test: Coronary angiogram: 10/08/23 Hemodynamic Data: RA: 11 RV: 49/5, 10 PA: 50/23 (32) PCWP: 23 CO: 4.27 CI: 1.89 O2 Sat: PA sat: 66%, AO sat: 98% AO: 177/91 (123) TP (more content not included)... [facility] Progress note 10-20-2023 Note Date & Type Note Facility 10-20-2023 Note Patient here for latoya b management per Dr. Munguia. Had heart cath last week. Denies chest pain, SOB, and bleeding on Eliquis. Review of Systems Constitutional: Positive for malaise/fatigue. Eyes: Positive for blurred vision. All other systems reviewed and are negative. [facility] Clinical Note 10-08-2023 Note Date & Type Note Facility 10-08-2023 Note Patient: Daisy thornton Sr. Procedure Information Date/Time: 09/01/23 1130 Procedures: Coronary angiography (Bilateral) Carotid angiogram (Bilateral) - w/ possible intervention Location: [facility] / [facility] (Cath) Providers: Aden Munguia MD Clinical information reviewed: Allergies Meds Physical Exam Airway Mallampati: IV TM distance: >3 FB Neck ROM: full Cardiovascular Rhythm: irregular Rate: normal Dental Pulmonary Breath sounds clear to auscultation Abdominal Anesthesia Plan ASA 4 other (Moderate sedation) Anesthetic plan and risks discussed with patient. Use of blood products discussed with patient who consented to blood products. Plan discussed with fellow and attending. Additional Equipment Requests [facility] Progress note 08-14-2023 Note Date & Type Note Facility 08-14-2023 Note ID Cardiology - [facility] Subjective Daisy Zuñiga is a 83 y.o. year old male patient being seen for New Patient and Carotid Artery Disease Patient Active Problem List Diagnosis Acute cerebrovascular accident (CVA) (CMS/HCC) Carotid stenosis, right Nihss score 17 Occlusion of left carotid artery Acute ischemic right middle cerebral artery (MCA) stroke (CMS/HCC) Family History Problem Relation Name Age of Onset Heart disease Mother Heart disease Sister Heart disease Brother Social History Tobacco Use Smoking status: Every Day Packs/day: 0.75 Types: Cigarettes Start date: 1961 Smokeless tobacco: Never Substance Use Topics Alcohol use: Not Currently Comment: not often Drug use: Never HPI Daisy is seen as a new patient, referred from Dr. Delatorre's office for carotid disease. He is an 83-year-old man. In August 2020 he was admitted to [facility] with left-sided hemiplegia and treated with tPA. He underwent thrombectomy of right M1 MCA. 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 At that time his echocardiogram showed no evidence of intracardiac shunt with an ejection fraction of 60%. His LDL was 73. following that he was prescribed dual antiplatelet therapy with aspirin and Plavix. in addition he was given statin therapy. He was seen by neurology in follow-up in December 2020 as was recommended to stop Plavix and continue aspirin therapy. He reports that he has recovered most of his left-sided motor function. He did reasonably well until recently when he started developing over the past 2 weeks symptoms of near syncope while he is sitting. The symptoms consist of feeling strange in the head with an impending loss of consciousness for which he starts tensing his arms in order to fight. He did not lose consciousness at any time. He denies associated tingling sensations or new motor weakness. He also denies chest pain. He does have some fatigue with exertion but no shortness of breath. He was started on Plavix after seeing Dr. Delatorre 4 days ago, who also ordered multiple testing including a holter monitor that he is wearing as well as CT angiogram of the carotids. Review of Systems Constitutional: Positive for malaise/fatigue. Eyes: Positive for blurred vision. Neurological: Positive for dizziness and light-headedness. Objective Visit Vitals BP (!) 144/93 Pulse 64 Ht 1.829 m (6') Wt 125 kg (275 lb) SpO2 97% BMI 37.30 kg/m??? Smoking Status Every Day BSA 2.52 m??? Physical Exam Constitutional: Appearance: He is well-developed. He is not ill-appearing. HENT: Head: Normocephalic and atraumatic. Nose: Nose normal. Eyes: General: No scleral icterus. Pupils: Pupils are equal, round, and reactive to light. Neck: Thyroid: No thyromegaly. Vascular: No JVD. Cardiovascular: Rate and Rhythm: Normal rate. Rhythm irregularly irregular. Pulses: Radial pulses are 2+ on the right side and 2+ on the left side. Heart sounds: Normal heart sounds. No murmur heard. No friction rub. No gallop. Pulmonary: Effort: Pulmonary effort is normal. No respiratory distress. Breath sounds: Normal breath sounds. No wheezing or rales. Chest: Chest wall: No tenderness. Abdominal: General: Bowel sounds are normal. There is no distension. Palpations: Abdomen is soft. Tenderness: There is no abdominal tenderness. Musculoskeletal: General: No swelling. Cervical back: Neck supple. Skin: General: Skin is warm and dry. Neurological: General: No focal deficit present. Mental Status: He is alert and oriented to person, place, and time. Psychiatric: Mood and Affect: Mood normal. Behavior: Behavior is cooperative. Judgment: Judgment normal. Allergies No Known Allergies Medications Current Outpatient Medications: aspirin 81 mg chewable tablet, Chew 1 tablet in the morning., Disp: , Rfl: atorvastatin (Lipitor) 40 mg tablet, Take 1 tablet by mouth at bedtime., Disp: , Rfl: apixaban (Eliquis) 5 mg tablet, Take 1 tablet (5 mg) by mouth in the morning and at bedtime., Disp: 180 tablet, Rfl: 3 Recent Labs 08/12/2023: Hemoglobin 16.2, platelets 233, potassium 4.2, BUN 11, creatinine 1.14, EGFR more than 60, LFTs normal, NT proBNP 1712, TSH 5.06, free T4 2.48. Lipids 02/12/2023: Cholesterol 128, HDL 66, triglycerides 65, LDL 49. Imaging and other tests ECG today 08/14/2023: Atrial fibrillation, nonspecific ST abnormalities, heart rate 86. Carotid duplex 11/29/2020: Right: Plaque with significant spectral Doppler/color flow disturbances; ICA Velocity 236/63 cm/sec, ICA/CCA Ratio 3.2. Antegrade vertebral artery flow. Left: Mixed echogenic intraluminal ICA content without spectral or color-flow Doppler. Antegrade vertebral artery flow. Conclusions: RIGHT: 50-69% stenosis of the internal carotid artery. Antegrade vertebral artery flow. LE (more content not included)... [facility] Summary Purpose Family History No Family History Records FoundNo Family History Records FoundNo Family History Records Found Advance Directives No Advanced Directives Records FoundLatest Code Status on File Code Status Date Activated Date Inactivated Comments Full Code 08/25/2020 7:01 AM Hospital Course * Yvrose Hsu MD - 08/26/2020 10:38 AM EDT Neuro Critical Care Discharge Summary PATIENT NAME: Daisy Zuñiga Sr. 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 ([facility]) I63.511 Carotid stenosis, right I65.21 Left carotid artery occlusion I65.22 Nihss score 17 R29.717 HOSPITAL COURSE 80-year-old male presented with dense left-sided hemiplegia along with left- sided facial droop and right gaze preference, LK W: 1830 on 08/24 NIH: 15 when evaluated by stroke team, TPA given at 1923,tolerated well, improvement in neurological exam, transferred to [facility] for thrombectomy -ED course: Patient was alert and oriented, endorses left side body weakness and left face, History of smoking 1 pack/day, he is not aware of any medical problem however he is not following with any doctor for long time Last 24h: No acute events overnight. Resumed on DVT prophylaxis, CT head: Stable, lipid panel: Normal, Pt declined MRI head WO, - Imaging: CT perfusion demonstrates whole-brain hypoperfusion without infarction. CTA demonstratesright M1 segment occlusion. - To angiography for thrombectomy: 08/24: Right M1 MCA mechanical thrombectomy with stent retrieverand aspiration TICI 2 C - Complete occlusion of cervical L ICA moderate stenosis of R cervical ICA -Patient declined MRI W0 contrast - Repeat CT head W0: Small acute infarct within the posterior margin of the right basal ganglia given the large ischemic penumbra, no acute intracranial abnormality - Echo: Bubble study is negative, EF: 60%, -Lipid panel: Cholesterol 146, HDL: 51, LDL: 73, PROCEDURES: at 1923 and thrombectomy: Right M1 MCA mechanical thrombectomy with stent retriever and aspiration TICI 2 C PHYSICAL EXAMINATION Discharge Vitals: height is 6' 1 (1.854 m) and weight is 230 lb (104.3 kg). His oral temperature is 98 F (36.7 C). His blood pressure is 134/59 (abnormal) and his pulse is 54. His respiration is 19 and oxygen saturation is 95%. CONSTITUTIONAL: Well developed, well nourished, alert and oriented x 3, in no acute distress. GCS 15. Nontoxic. No dysarthria. No aphasia. HEAD: normocephalic, atraumatic EYES: PERRLA, EOMI. ENT: moist mucous membranes NECK: supple, symmetric LUNGS: Equal air entry bilaterally CARDIOVASCULAR: normal s1 / s2, RRR, distal pulses intact ABDOMEN: Soft, no rigidity NEUROLOGIC: Mental Status: A & O x3,awake Cranial Nerves: cranial nerves II-XII are grossly intact Motor Exam: Drift: present -left arm drift Tone: normal 5 out of 5 in right hemibody, 4 out of 5 with left hemibody Sensory: Touch: Right Upper Extremity: normal Left Upper Extremity: normal Right Lower Extremity: normal Left Lower Extremity: normal Deep Tendon Reflexes: Right Bicep: 2+ Left Bicep: 2+ Right Knee: 2+ Left Knee: 2+ Plantar Response: Right: equivocal Left: equivocal Clonus: absent Deluca's: absent Coordination/Dysmetria: Heel to Lim: Right: normal Left: normal Finger to Nose: Right: normal Left: normal Dysdiadochokinesia: absent Gait: Not assessed NIH Stroke Scale Total (if not done complete detailed one below): 1a. Level of consciousness: 0 - alert; keenly responsive 1b. Level of consciousness questions: 0 - answers both questions correctly 1c. Level of consciousness questions: 0 - performs both tasks correctly 2. Best Gaze: 0 - normal 3. Visual: 0 - no visual loss 4. Facial Palsy: 0 - normal symmetric movement 5a. Motor left arm: 0 - no drift, limb holds 90 (or 45) degrees for full 10 seconds 5b. Motor right arm: 0 - no drift, limb holds 90 (or 45) degrees for full 10 seconds 6a. Motor left le - no drift; leg holds 30 degree position for full 5 seconds 6b. Motor right le - no drift; leg holds 30 degree position for full 5 seconds 7. Limb Ataxia: 0 - absent 8. Sensory: 0 - normal; no sensory loss 9. Best Language: 0 - no aphasia, normal 10. Dysarthria: 0 - normal 11. Extinction and Inattention: 0 - no abnormality TOTAL: LABS/IMAGING Recent Labs 08/24/20202108/26/20 0344 08/26/20 0816 WBC 12.0* 21.1* 18.2* HGB 16.0 14.0 13.6 HCT 48.3 44.1 42.7 PLT 241 191 190 NA 140 -- 140 K 3.6* -- 4.0 CL 102 -- 108* CO2 25 -- 25 BUN 10 -- 13 CREATININE 1.01 -- 0.82 Ct Head Wo Contrast Result Date: 08/26/2020 EXAMINATION: CT OF THE HEAD WITHOUT CONTRAST, 08/25/2020 9:46 pm TECHNIQUE: CT of the head was performed without the administration of intravenous contrast. Dose modulation, iterative reconstruction,and/or weight based adjustment of the mA/kV was utilized to reduce the radiation dose to as low as reasonably achievable. COMPARISON: 08/25/2020, CT brain, CT perfusion and CT angiogram. HISTORY: ORDERING SYSTEM PROVIDED HISTORY: 24 hr post TPA administration TECHNOLOGIST PROVIDED HISTORY: 24 hr post TPA administration Reason for Exam: 24 HOUR POST TPA Acuity: Unknown Type of Exam: Unknown FINDINGS: BRAIN/VENTRICLES: There is focal hypoattenuation along the posterior margin of the right basal ga nglia consistent with an acute infarct. This has developed since the previous exam. The remainder of the huang-white differentiation is maintained in the area of large ischemic penumbra evident on theprior perfusion exam. There is no acute intracranial hemorrhage. There is no mass effect or midlineshift. There is no ventriculomegaly or abnormal extra-axial fluid collection present. ORBITS: Limited evaluation of the orbits is unremarkable. SINUSES: Mild mucosal thickening is present throughout the paranasal sinuses. SOFT TISSUES/SKULL: No lytic or blastic osseous lesions are identified. 1. Relatively small acute infarct within the posterior margin of the right basal ganglia given the large ischemic penumbra evident on the prior perfusion images within the right MCA territory. 2. No acute intracranial hemorrhage. Ct Head Wo Contrast Result Date: 08/25/2020 EXAMINATION: CT OF THE HEAD WITHOUT CONTRAST 08/25/2020 5:51 am TECHNIQUE: CT of the head was performed without the administration of intravenous contrast. Dose modulation, iterative reconstruction, and/or weight based adjustment of the mA/kV was utilized to reduce the radiation dose to as low as reasonably achievable. COMPARISON: August 24, 2020 HISTORY: ORDERING SYSTEM PROVIDED HISTORY: s/p TPA/thrombectomy TECHNOLOGIST PROVIDED HISTORY: s/p TPA/thrombectomy Reason for Exam: s/p TPA/thrombectomy Acuity: Acute Type of Exam: Initial FINDINGS: No acute intracranial hemorrhage. No mass effect.No midline shift. Mild prominence of the ventricles and sulci is consistent with atrophy. Increasedhypodensity is now seen within the right temporal lobe. No acute soft tissue abnormality. No acute orbital abnormality. No acute osseous abnormality. Mild mucosal thickening within the ethmoid air cells and left maxillary sinus. Mastoid air cells are clear. Evolving right temporal lobe infarct. Ct Head Wo Contrast Result Date: 08/24/2020 EXAMINATION: CT OF THE HEAD WITHOUT CONTRAST 08/24/2020 7:12 pm TECHNIQUE: CT of the head was performed without the administration of intravenous contrast. Dose modulation, iterative reconstruction, and/or weight based adjustment of the mA/kV was utilized to reduce the radiation dose to as low as reasonably achievable. COMPARISON: None. HISTORY: ORDERING SYSTEM PROVIDED HISTORY: Stroke TECHNOLOGIST PROVIDED HISTORY: Stroke FINDINGS: Technically limited exam due to suboptimal positioning. Significant artifacts are limiting assessment of the posterior cranium and intracranial structures. BRAIN/VENTRICLES: There is no acute intracranial hemorrhage, mass effect or midline shift. No abnormal extra- axial fluid collection. The huang-white differentiation is maintained without evidence of an acuteinfarct. There is no evidence of hydrocephalus. ORBITS: The visualized portion of the orbits demonstrate no acute abnormality. SINUSES: The visualized paranasal sinuses and mastoid air cells demonstrate no acute abnormality. SOFT TISSUES/SKULL: No acute abnormality of the visualized skull or soft tissues. No acute intracranial abnormality. Ct Brain Perfusion Result Date: 08/24/2020 EXAMINATION: CTA OF THE HEAD WITH CONTRAST WITH PERFUSION 08/24/2020 8:40 pm: TECHNIQUE: CTA of thehead/brain was performed with the administration of intravenous contrast. Multiplanar reformatted images are provided for review. MIP images are provided for review. Dose modulation, iterative reconstruction, and/or weight based adjustment of the mA/kV was utilized to reduce the radiation dose to as low as reasonably achievable. COMPARISON: None. HISTORY: ORDERING SYSTEM PROVIDED HISTORY: rt mca stroke TECHNOLOGIST PROVIDED HISTORY: rt mca stroke Reason for Exam: stroke Acuity: Unknown Type of Exam: Unknown FINDINGS: CT PERFUSION: There is no perfusion abnormality noted on the rCBF images to i ndicate area of infarction. There is mismatch with the T-max images demonstrating whole cerebral hypoperfusion, representing area of penumbra. rCBF < 30%: 3 cc T-max > 6 seconds: 496 cc Mismatch volume: 493 cc Mismatch ratio: 165.3 1. Large mismatch perfusion abnormality demonstrating essentially whole-brain hypoperfusion with nosignificant area of infarction. Cta Head Neck W Contrast Result Date: 08/24/2020 EXAMINATION: CTA OF THE HEAD AND NECK WITH CONTRAST 08/24/2020 8:17 pm: TECHNIQUE: CTA of the head and neck was performed with the administration of intravenous contrast. Multiplanar reformatted images are provided for review. MIP images are provided for review. Stenosis of the internal carotid arteries measured using NASCET criteria. Dose modulation, iterative reconstruction, and/or weight basedadjustment of the mA/kV was utilized to reduce the radiation dose to as low as reasonably achievable. COMPARISON: None. HISTORY: ORDERING SYSTEM PROVIDED HISTORY: Stroke TECHNOLOGIST PROVIDED HISTORY: Stroke Reason for Exam: stroke alert FINDINGS: CTA NECK: AORTIC ARCH/ARCH VESSELS: No dissection or arterial injury. No significant stenosis of the brachiocephalic or subclavian arteries. 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 Thick atherosclerotic calcified plaques are noted at the level of the bilateral carotid bulbs. There is a short segment high-grade stenosis near the origin of the right cervical ICA measuring about 70% stenosis by NASCET criteria. The bilateral common carotid arteries demonstrate appropriate patency. VERTEBRAL ARTERIES: No dissection, arterial injury, or significant stenosis. SOFT TISSUES: The lung apices are clear. No cervical or superior mediastinal lymphadenopathy. The larynx and pharynx are unremarkable. No acute abnormality of the salivary and thyroid glands. BONES: No acute osseous abnormality. CTA HEAD: ANTERIOR CIRCULATION: There is abrupt occlusion at the midportion of the right M1 segment with lack of enhancement of the distal right M1 segment. Reconstituted flow is demonstrated in the distal right M2 branches and the sylvian branches. There is occlusion of the left cervical ICA continuing from the cervical occlusion intracranially up to the level of the supraclinoid ICA. There is reconstitution of the distal intracranial left ICA, most likely by way of collateral supply from the posterior communicating artery. There is appropriate patency of the bilateral ANGELINA. POSTERIOR CIRCULATION: No significant stenosis of the vertebral, basilar, or posterior cerebral arteries. No aneurysm. OTHER: No dural venous sinus thrombosis on this non-dedicated study. BRAIN: No mass effect or midline shift. No extra-axial fluid collection. The huang-white differentiationis maintained. Complete occlusion of the left cervical ICA at the level of the bifurcation extending intracranially up to the supraclinoid intracranial ICA with reconstitution by way of the posterior communicating artery. Occlusion of the midportion of the right M1 segment with reconstituted flow in the distal M2 segments of the MCA and in the sylvian branches. High-grade stenosis at the origin of the right cervical ICA measuring about 70% by NASCET criteria. RECOMMENDATIONS: Critical results were called by Dr. Magno Luevano to Dr. Santiago On 08/24/2020 at 21:04. DISCHARGE INSTRUCTIONS Discharge Medications: Medication List START taking these medications aspirin 81 MG chewable tablet Take 1 tablet by mouth daily Start taking on: August 27, 2020 atorvastatin 80 MG tablet Commonly known as: LIPITOR Take 1 tablet by mouth nightly clopidogrel 75 MG tablet Commonly known as: PLAVIX Take 1 tablet by mouth daily Start taking on: August 27, 2020 Where to Get Your Medications These medications were sent to [address] - [phone] - F [phone] [place] [id number] aspirin 81 MG chewable tablet atorvastatin 80 MG tablet clopidogrel 75 MG tablet Diet: DIET GENERAL; diet as tolerated Activity: as tolerated Follow-up: neurology clinic in 3 weeks neuroendovascular clinic in 2 weeks Time Spent for discharge: > 30 minutes Yvrose Hsu MD Neuro Critical Care 08/26/2020, 10:39 AM Associated attestation - Mike Murray MD - 08/26/2020 11:20 AM EDT I reviewed the resident s note and agree with the documented findings and plan of care. Any areas of disagreement are noted on the chart. I agree with the hospital course and examination as documented unless otherwise noted below. I have personally seen and evaluated the patient and images. I find the patient's history and physical exam are consistent with the Resident documentation. I agree withthe care provided, treatment rendered, disposition and follow-up plan. Patient hemodynamically and neurologically stable at time of discharge. He will be discharged on DAPT and statin for secondary stroke prevention. He will follow up in the endovascular and neurology clinics. Patient had leukocytosis, however, it is likely reactive from the thrombectomy and he also received steroids in the ED. No evidence of active infection. Plan for discharge home. Total discharge time: 30 minutes documented in this encounter History of Present Illness * Morena Drummond RN - 08/26/2020 3:03 PM EDT Patient discharged home via son. Patient left with all belongings, and prescriptions delivered by meds to beds. Educated on follow up appointments and next doses for medications. All questions answered. All lines removed prior to discharge. * Lazaro Yates OT - 08/26/2020 2:14 PM EDT Occupational Therapy Occupational Therapy Initial Assessment Date: 08/26/2020 Patient Name: Daisy Zuñiga Sr. : 1940 Date of Service: 08/26/2020 Discharge Recommendations: No therapy recommended at discharge. OT Equipment Recommendations Equipment Needed: Yes Mobility Devices: ADL Assistive Devices ADL Assistive Devices: Shower Chair with back Assessment Performance deficits / Impairments: Decreased functional mobility ;Decreased high-level IADLs;Decreased coordination;Decreased ADL status Prognosis: Good Decision Making: Medium Complexity OT Education: OT Role;Plan of Care;ADL Adaptive Strategies;Transfer Training REQUIRES OT FOLLOW UP: Yes Activity Tolerance Activity Tolerance: Patient Tolerated treatment well Safety Devices Safety Devices in place: Yes Type of devices: All fall risk precautions in place;Call light within reach;Left in chair;Nurse notified;Gait belt Restraints Initially in place: No Patient Diagnosis(es): The encounter diagnosis was Cerebrovascular accident (CVA), unspecified mechanism (HCC). has no past medical history on file. has no past surgical history on file. Restrictions Restrictions/Precautions Restrictions/Precautions: Up as Tolerated, General Precautions Required Braces or Orthoses?: No Position Activity Restriction Other position/activity restrictions: up with A, SBP goal 110-160 Subjective General Patient assessed for rehabilitation services?: Yes Family / Caregiver Present: No Diagnosis: R basal ganglia infarct, R M1 thrombectomy, L droop/weakness Patient Currently in Pain: No Pain Assessment Pain Assessment: 0-10 Pain Level: 0 Vital Signs Pulse: 64 Resp: 20 BP: (!) 141/65 MAP (mmHg): 88 Level of Consciousness: Alert Patient Currently in Pain: No Oxygen Therapy SpO2: 92 % Social/Functional History Social/Functional History Lives With: Spouse Type of Home: House Home Layout: One level Home Access: Stairs to enter with rails Entrance Stairs - Number of Steps: 2 Bathroom Shower/Tub: Tub/Shower unit Bathroom Toilet: Standard Bathroom Accessibility: Accessible ADL Assistance: Independent Homemaking Assistance: Independent Homemaking Responsibilities: Yes Ambulation Assistance: Independent Transfer Assistance: Independent Active Supervisor Fishing: Yes Occupation: Retired Leisure & Hobbies: [employer], yardwork 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 Objective Vision: Within Functional Limits Hearing: Within functional limits Orientation Overall Orientation Status: Within Functional Limits Balance Sitting Balance: Modified independent Standing Balance: Supervision Standing Balance Time: 15 min Activity: Pt stood bedside, sinkside, func mob to/from bathroom on unit Functional Mobility Functional - Mobility Device: No device Activity: To/from bathroom Assist Level: Stand by assistance Functional Mobility Comments: No major LOB or safety concerns noted ADL Feeding: Independent Grooming: Modified independent UE Bathing: Modified independent LE Bathing: Supervision UE Dressing: Supervision LE Dressing: Supervision Toileting: Supervision Additional Comments: Pt stood sinkside for full oral care activity, slowed coordination noted in LUE, pt had some difficulty doffing/donning L sock sitting in chair, pt states it was difficult d/t heigth of this chair which is likely true Tone RUE RUE Tone: Normotonic Tone LUE LUE Tone: Normotonic Coordination Movements Are Fluid And Coordinated: No Coordination and Movement description: Decreased speed;Decreased accuracy;Fine motor impairments;Left UE Quality of Movement Other Comment: Slowed LUE coordination, good [id number] test, only minor difficulty with FMC test while L hand manipulated small objects Bed mobility Supine to Sit: Unable to assess Sit to Supine: Unable to assess Scooting: Modified independent Comment: Pt sitting in chair upon arrival/exit this date Transfers Sit to stand: Supervision Stand to sit: Modified independent Cognition Overall Cognitive Status: WFL Sensation Overall Sensation Status: WFL LUE AROM (degrees) LUE AROM : WFL RUE AROM (degrees) RUE AROM : WFL LUE Strength Gross LUE Strength: WFL L Hand General: 5/5 RUE Strength Gross RUE Strength: WFL R Hand General: 5/5 Plan Plan Times per week: 3-4x AM-PAC Score AM-PAC Inpatient Daily Activity Raw Score: 21 (08/26/201408) AM-PAC Inpatient ADL T-Scale Score : 44.27 (08/26/201408) ADL Inpatient CMS 0-100% Score: 32.79 (08/26/201408) ADL Inpatient CMS G-Code Modifier : CJ (08/26/201408) Goals Short term goals Time Frame for Short term goals: Pt will by discharge Short term goal 1: demo FMC func activity for 10 min using LUE to promote accuracy/speed during ADL's Short term goal 2: demo bending/reaching func activity while standing with mod I Short term goal 3: demo ADL UB/LB dressing/bathing activity with mod I and increased time only Therapy Time Individual Concurrent Group Co-treatment Time In 1215 Time Out 1237 Minutes 22 Timed Code Treatment Minutes: 18 Minutes Lazaro Yates OTR/L * Amalia Weaver - 08/26/2020 11:52 AM EDT CLINICAL PHARMACY NOTE: MEDS TO [facility] Select Patient?: No Total # of Prescriptions Filled: 3 The following medications were delivered to the patient: Atorvastatin 80 Aspirin 81 Clopidogrel 75 Total # of Interventions Completed: 0 Time Spent (min): 60 Additional Documentation: * Lori Guerrero PT - 08/26/2020 11:26 AM EDT Physical Therapy Facility/Department: [address] Initial Assessment NAME: Daisy Zuñiga Sr. : 1940 Date of Service: 08/26/2020 Discharge Recommendations: No further therapy required at discharge. PT Equipment Recommendations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 now s/p tpa and MT tici 2b. Stroke etio suspect cardioembolic vs large vessel disease Exam is improved, L hemibody is now 4+/5. CT head 08/25/2020 no bleed. PLAN: --care as per nsicu --SBP goal 110-160 --start asa 81 and plavix 75, no load. Plan for dapt for 3 mo --continue lipitor 80 --Upon discharge follow up with Dr. Anna in [address] Rawls in 3 months Case discussed with Dr. Rawls attending. Parviz Anna MD, PhD Stroke, Neurocritical Care & Neurointervention [facility] [place] Electronically signed 08/25/2020 at 8:23 AM Associated attestation - Rohit Rawls MD - 08/25/2020 2:12 PM EDT I reviewed the Fellow's note and agree with the documented findings and plan of care. Any areas of disagreement are noted on the chart. I agree with the chief complaint, past medical history, past surgical history, allergies, medications, social and family history as documented unless otherwise noted below. I have personally seen and evaluated the patient and images. I find the patient's history and physical exam are consistent with the Fellow's documentation. I agree with the care provided, treatment rendered, disposition and follow-up plan. Ongoing improvement after successful mechanical thrombectomy of the right MCA occlusion. Cont aspirin, clopidogrel, pt/ot, rehab eval, s/s 35 minutes with greater than 50% of time spent face to face, counseling, coordinating care, examining patient, reviewing images and labs personally, and speaking with team. Rohit Rawls MD Office [phone]. Cell [phone] Stroke, Neurocritical Care & Neurointervention [facility] [place] * Yvrose Hsu MD - 08/25/2020 7:05 AM EDT Daily Progress Note Neuro Critical Care Patient Name: Daisy Zuñiga Sr. Patient : 1940 Room/Bed: [address] [place] [address] Code Status: full code Allergies: No Known Allergies CHIEF COMPLAINT: Left-sided weakness INTERVAL HISTORY Initial Presentation (Admitted 08/24): 80-year-old male presented with dense left-sided hemiplegia along with left- sided facial droop and right gaze preference, LK W: 1830 on 08/24 NIH: 15 when evaluated by stroke team, TPA given at 1923,tolerated well, improvement in neurological exam, transferred to Talent Development Specialist for thrombectomy -ED course: Patient was alert and oriented, endorses left side body weakness and left face, History of smoking 1 pack/day, he is not aware of any medical problem however he is not following with any doctor for long time Last 24h: No acute events overnight. CURRENT MEDICATIONS: SCHEDULED MEDICATIONS: sodium chloride flush 10 mL Intravenous 2 times per day atorvastatin 80 mg Oral Nightly orphenadrine 30 mg Intramuscular Once CONTINUOUS INFUSIONS: sodium chloride 100 mL/hr at 08/24/20 2138 clevidipine PRN MEDICATIONS: sodium chloride flush, polyethylene glycol, promethazine OR ondansetron, perflutren lipid microspheres, albuterol, acetaminophen VITALS: Temperature Range: Temp: 98 F (36.7 C) Temp Av.9 F (36.6 C) Min: 97.5 F (36.4 C) Max: 98.1 F (36.7 C) BP Range: Systolic (24hrs), Av , Min:118 , Max:197 Diastolic (24hrs), Av, Min:45, Max:130 Pulse Range: Pulse Av.9 Min: 65 Max: 77 Respiration Range: Resp Av.5 Min: 0 Max: 25 Current Pulse Ox: SpO2: 94 % 24HR Pulse Ox Range: SpO2 Av.2 % Min: 87 % Max: 99 % Patient Vitals for the past 12 hrs: BP Temp Temp src Pulse Resp SpO2 Height Weight 08/25/20 0620 (!) 118/54 72 18 94 % 08/25/20 0520 76 22 95 % 08/25/20 0420 77 21 95 % 08/25/20 0400 (!) 135/51 65 17 93 % 08/25/20 0320 74 95 % 08/25/20 0250 (!) 128/56 70 16 92 % 08/25/20 0220 (!) 135/54 76 21 97 % 08/25/20 0150 (!) 145/50 67 18 94 % 08/25/20 0140 17 08/25/20 0120 (!) 129/45 98 F (36.7 C) Oral 66 18 92 % 08/25/20 0051 (!) 144/48 94 % 08/25/20 0050 (!) 144/48 98.1 F (36.7 C) 71 17 08/25/20 0020 (!) 150/66 98 F (36.7 C) Oral 74 18 93 % 08/24/20 2350 (!) 124/57 98 F (36.7 C) Oral 74 14 95 % 08/24/202118 97.5 F (36.4 C) Oral 08/24/202031 (!) 167/89 74 23 93 % 08/24/202025 (!) 179/97 70 21 94 % 08/24/202008 6' 1 (1.854 m) 230 lb (104.3 kg) 08/24/20 192 (!) 163/84 Estimated body mass index is 30.34 kg/m as calculated from the following: Height as of this encounter: 6' 1 (1.854 m). Weight as of this encounter: 230 lb (104.3 kg). []<16 Severe malnutrition []16 16.99 Moderate malnutrition []17 18.49 Mild malnutrition []18.5 24.9 Normal []25 29.9 Overweight (not obese) [x]30 34.9 Obese class 1 (Low Risk) []35 39.9 Obese class 2 (Moderate Risk) []?40 Obese class 3 (High Risk) RECENT LABS: Lab Results Component Value Date WBC 12.0 (H) 08/24/2020 HGB 16.0 08/24/2020 HCT 48.3 08/24/2020 PLT 241 08/24/2020 NA 140 08/24/2020 K 3.6 (L) 08/24/2020 CL 102 08/24/2020 CREATININE 1.01 08/24/2020 BUN 10 08/24/2020 CO2 25 08/24/2020 INR 0.9 08/24/2020 24 HOUR INTAKE/OUTPUT: Intake/Output Summary (Last 24 hours) at 08/25/2020 0705 Last data filed at 08/25/2020 0620 Gross per 24 hour Intake Output 1125 ml Net -1125 ml Labs and Images reviewed with: [] Dr. Jack Hung [x] Dr. Mike Murray [] Dr. Angelo Rodriguez [] There are no new interval images to review. PHYSICAL EXAM CONSTITUTIONAL: Well developed, well nourished, alert and oriented x 3, in no acute distress. GCS 15. Nontoxic. No dysarthria. No aphasia HEAD: normocephalic, atraumatic EYES: PERRLA, EOMI. ENT: moist mucous membranes NECK: supple, symmetric LUNGS: Equal air entry bilaterally CARDIOVASCULAR: normal s1 / s2, RRR, distal pulses intact ABDOMEN: Soft, no rigidity NEUROLOGIC: Mental Status: A & O x3,awake Cranial Nerves: cranial nerves II-XII are grossly intact Motor Exam: Drift: present -left arm drift Tone: normal 5 out of 5 in right hemibody, 4 out of 5 with left hemibody Sensory: Touch: Right Upper Extremity: normal Left Upper Extremity: normal Right Lower Extremity: normal Left Lower Extremity: normal Deep Tendon Reflexes: Right Bicep: 2+ Left Bicep: 2+ Right Knee: 2+ Left Knee: 2+ Plantar Response: Right: equivocal Left: equivocal Clonus: absent Deluca's: absent Coordination/Dysmetria: Heel to Lim: Right: normal Left: normal Finger to Nose: Right: normal Left: normal Dysdiadochokinesia: absent Gait: Not assessed NIH Stroke Scale Total (if not done complete detailed one below): 1a. Level of consciousness: 0 - alert; keenly responsive 1b. Level of consciousness questions: 0 - answers both questions correctly 1c. Level of consciousness questions: 0 - performs both tasks correctly 2. Best Gaze: 0 - normal 3. Visual: 0 - no visual loss 4. Facial Palsy: 1 - minor paralysis (flattened nasolabial fold, asymmetric on smiling) 5a. Motor left arm: 1 - drift, limb holds 90 (or 45) degrees but drifts down before full 10 seconds: does not hit bed 5b. Motor right arm: 0 - no drift, limb holds 90 (or 45) degrees for full 10 seconds 6a. Motor left le - no drift; leg holds 30 degree position for full 5 seconds 6b. Motor right le - no drift; leg holds 30 degree position for full 5 seconds 7. Limb Ataxia: 0 - absent 8. Sensory: 0 - normal; no sensory loss 9. Best Language: 0 - no aphasia, normal 10. Dysarthria: 0 - normal 11. Extinction and Inattention: 0 - no abnormality TOTAL: 2 DRAINS: [x] There are no drains for Neuro Critical Care to monitor at this time. ASSESSMENT AND PLAN: 80-year-old male with acute left hemiplegia and right gaze preference LK W 08/24 at 1830, s/p TPA at 1923 and thrombectomy: Right M1 MCA mechanical thrombectomy with stent retriever and aspiration TICI 2 C NEUROLOGIC: - Imaging: CT perfusion demonstrates whole-brain hypoperfusion without infarction. CTA demonstratesright M1 segment occlusion. -To angiography for thrombectomy: 08/24: Right M1 MCA mechanical thrombectomy with stent retriever and aspiration TICI 2 C -Complete occlusion of cervical L ICA moderate stenosis of R cervical ICA -MRI WO brain at 6 PM -Post TPA protocol -Follow-up with endovascular Dr. Anna in [address] 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 For any changes in exam or patient status please contact Neuro Critical Care. Yvrose Hsu MD Neuro Critical Care Pager [phone] 08/25/2020 7:05 AM Associated attestation - Mike Murray MD - 08/26/2020 10:55 AM EDT Patient seen during rounds with resident on 08/25/2020. Please see H&P for updated plan and staff attestation entered as a late entry. documented in this encounter Assessments Diagnosis Cerebrovascular accident (CVA), unspecified mechanism (HCC) Acute cerebrovascular accident (CVA) (HCC) Acute ischemic right middle cerebral artery (MCA) stroke (HCC) Carotid stenosis, right Occlusion and stenosis of carotid artery without mention of cerebral infarction Left carotid artery occlusion Occlusion and stenosis of carotid artery without mention of cerebral infarction Nihss score 17 Additional Source Comments (unrecognized sect ion and content) No Status Records FoundNo Status Records FoundNo Status Records Found INFORMATION SOURCE (unrecogn ized section and content) DATE CREATED AUTHOR 08/30/2020 [facility] DATE CREATED AUTHOR AUTHOR'S ORGANIZ ATION 02/13/2023 [facility] DATE CREATED AUTHOR AUTHOR'S ORGANIZ ATION 11/25/2023 [facility] Reason for Visit (unrecogniz ed section and content) Reason Comments Cerebrovascular Accident FOR RECORDS PERTAINING TO PATIENTS WHO ARE OR HAVE BEEN ENROLLED IN A CHEMICAL DEPENDENCY/SUBSTANCEABUSE PROGRAM, SOME INFORMATION MAY BE OMITTED. This clinical summary was aggregated from multiple sources. Caution should be exercised in using it in the provision of clinical care. This summary normalizes information from multiple sources, and as a consequence, information in this document may materially change the coding, format and clinical context of patient data. In addition, data may be omitted in some cases. CLINICAL DECISIONS SHOULD BE BASED ON THE PRIMARY CLINICAL RECORDS. [employer] provides no warranty or guarantee of the accuracy or completeness of information in this document.
[2023-11-25 09:38] LABS: Anion Gap 13.7; BUN Creatinine Ratio 9.6; Calcium 8.4 mg/dL (8.5-10.1); Carbon Dioxide 30.4 mmol/L (21.0-32.0); Chloride 104 mmol/L (98-107); Estimated GFR (African America >60 (>=60); Estimated GFR (Non-African Ame 55 (>=60); Glucose 102 mg/dL (74-106); Potassium 4.1 mmol/L (3.5-5.1); Sodium 144 mmol/L (136-145)
== END 2023-11-25 08:57 | disposition home or self-care (01) ==
LOC: LAB 08:58
PROVIDERS: PCP Family Medicine; Visit Provider Internal Medicine Cardiovascular Disease
DX: I48.0 Paroxysmal atrial fibrillation (principal)
CPT/HCPCS: 36415; 80048

== ENCOUNTER 2024-09-20 08:27 | Outpatient (OUT) | payer MEDICARE, SELFPAY ==
[2024-09-20 09:06] LABS: Basophils Absolute Auto 0.1 10^3/uL (0.0-0.1); Basophils Percent Auto 0.4 % (0.2-2.0); Eosinophils Absolute Auto 0.3 10^3/uL (0.0-0.7); Hematocrit 48.2 % (42.0-54.0); Immature Granulocytes Abs Auto 0.05 10^3/uL (0.00-0.03); Immature Granulocytes Pct Auto 0.4 % (0.0-0.5); Lymphocytes Absolute Auto 3.7 10^3/uL (1.2-3.8); Lymphocytes Percent Auto 32.8 % (20.5-60.0); Mean Corpuscular HGB Conc 33.2 g/dL (29.9-35.2); Mean Corpuscular Hemoglobin 32.9 pg (25.9-34.0); Mean Corpuscular Volume 99.2 fL (80.0-94.0); Mean Platelet Volume 11.7 fL (9.5-13.5); Monocytes Absolute Auto 0.8 10^3/uL (0.3-0.8); Monocytes Percent Auto 7.1 % (1.7-12.0); Neutrophils Absolute Auto 6.3 10^3/uL (1.4-6.5); Neutrophils Percent Auto 56.3 % (43.0-75.0); Platelet Count 226 10^3/uL (150-450); Red Blood Count 4.86 10^6/uL (4.70-6.10); White Blood Count 11.2 10^3/uL (4.0-11.0)
[2024-09-20 10:16] LABS: Prostate Specific Antigen Scrn 0.83 ng/mL (<=4.00)
[2024-09-20 10:20] LABS: Alanine Aminotransferase 18 U/L (16-63); Albumin Globulin Ratio 1.1; Albumin Level 3.6 g/dL (3.4-5.0); Alkaline Phosphatase 86 U/L (46-116); Anion Gap 12.1; Aspartate Amino Transferase 15 U/L (15-37); BUN Creatinine Ratio 10.6; Bilirubin Total 0.8 mg/dL (0.2-1.0); Carbon Dioxide 29.9 mmol/L (21.0-32.0); Chloride 108 mmol/L (98-107); Chol HDL Ratio 1.8; Cholesterol 124 mg/dL (<=200); Estimated GFR (African America 58 (>=60 mL/min/1.73m^2); Estimated GFR (Non-African Ame 48 (>=60 mL/min/1.73m^2); Free T3 1.89 pg/mL (2.18-3.98); Globulin 3.3 g/dL; Glucose 108 mg/dL (74-106); HDL Cholesterol 68 mg/dL (40-60); Sodium 146 mmol/L (136-145); Thyroid Stimulating Hormone 10.545 uIU/mL (0.358-3.740); Total Protein 6.9 g/dL (6.4-8.2); Triglycerides 67 mg/dL (<=150); VLDL CHOLESTEROL 13.4 mg/dL
[2024-09-20 10:40] LABS: Estimated Average Glucose 117 mg/dL; Glycohemoglobin A1C 5.7 % (4.5-6.2)
== END 2024-09-20 08:28 | disposition home or self-care (01) ==
LOC: LAB 08:29
PROVIDERS: PCP Family Medicine; Visit Provider Family Medicine
DX: E78.5 Hyperlipidemia, unspecified (principal); I10 Essential (primary) hypertension; Z12.5 Encounter for screening for malignant neoplasm of prostate; R53.83 Other fatigue; Z12.12 Encounter for screening for malignant neoplasm of rectum; R73.09 Other abnormal glucose
CPT/HCPCS: 36415; 80053; 80061; 83036; 84436; 84443; 84481; 85025; G0103

== ENCOUNTER 2024-10-25 08:18 | Outpatient (OUT) | payer MEDICARE, SELFPAY ==
--- OUTSIDE RECORDS SUMMARY | 2024-10-25 08:21 | XMS_ITS | CCD ---
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 Name Role Phone VIVIANE SANTIAGO Consulting Unavailable JESSICA DELATORRE Primary Care Unavailable MIKE MURRAY Admitting Unavailable MIKE MURRAY Attending Unavailable MIKE MURRAY Consulting Unavailable ROHIT RAWLS I Consulting Unavailable PARVIZ ANNA Consulting Unavailable Jessica Delatorre Primary Care Provider GEETHA ., DR LOPEZ Attending Unavailable GEETAH ., DR LOPEZ Consulting Unavailable GEETHA ., DR LOPEZ Primary Care Unavailable GEETHA ., DR LOPEZ Admitting Unavailable ADEN MUNGUIA Referring Unavailable ADEN MUNGUIA Admitting Unavailable ADEN MUNGUIA Attending Unavailable ADEN MUNGUIA Admitting Unavailable ADEN MUNGUIA Attending Unavailable ADEN MUNGUIA Attending Unavailable MIKE CABRERA Attending Unavailable ADEN MUNGUIA Referring Unavailable Community, Outreach Primary Care Provider AUGUSTINA Diaz Attending Provider [phone] [facility], [facility] Primary Care Unavailable Elisabeth Diaz Attending Unavailable Elisabeth Diaz Admitting Unavailable Medications Current Medications Medication Drug Class(es) Dates Sig (Normalized) Sig (Original) acetaminophen 325 mg oral tablet (1 source) Start: 08-24-2020 acetaminophen (TYLENOL) tablet 650 mg Albuterol (3 sources) beta2-Adrenergic Agonist Start: 04-24-2024 Albuterol Sulfate Active 2 INH INHALATION EVERY 4-6 HOURS 6.7 14 April 24, 2024 12:00am Start: 08-24-2020 albuterol (PRO VENTIL) nebulizer solution 5 mg amiodarone hydrochloride 200 mg oral tablet (2 sources) Antiarrhythmic Start: 04-24-2024 take 200 mg by mouth once daily Amiodarone Active 200 MG PO Daily April 24, 2024 12:00am apixaban 5 mg oral tablet (2 sources) Factor Xa Inhibitor Start: 04-24-2024 take 1 tablet by mouth twice daily Apixaban (Eliquis) 5 mg tablet Active 5 MG PO Twice daily April 24, 2024 12:00am aspirin 81 mg delayed release oral tablet (4 sources) Platelet Aggregation Inhibitor, Nonsteroidal Anti-inflammatory Drug Start: 04-24-2024 take 81 mg by mouth once daily Aspirin Active 81 MG PO Daily April 24, 2024 12:00am Start: 08-27-2020 take 1 tablet by aureliano th once daily aspirin 81 MG chewable tablet Take 1 tablet by mouth daily 30 tablet 3 08/27/2020 Active Start: 08-26-2020 aspirin chewab le tablet 81 mg atorvastatin 40 mg oral tablet (4 sources) HMG-CoA Reductase Inhibitor Start: 04-24-2024 take 40 mg by mouth once daily at bedtime Atorvastatin Active 40 MG PO Daily at bedtime April 24, 2024 12:00am Start: 08-25-2020 take 1 tablet by aureliano th once daily atorvastatin (LIPITOR) 80 MG tablet Take 1 tablet by mouth nightly 30 tablet 3 08/26/2020 Active doxycycline hyclate 100 mg oral capsule (2 sources) Tetracycline-class Drug Start: 04-24-2024 take 100 mg by mouth twice daily Doxycycline Hyclate Active 100 MG PO Twice daily 14 7 April 24, 2024 12:00am 0.4 ml enoxaparin sodium 100 mg/ml prefilled syringe (1 source) Low Molecular Weight Heparin Start: 08-26-2020 enoxaparin (LOVENOX) injection 40 mg 4 ml labetalol hydrochloride 5 mg/ml cartridge (1 source) beta-Adrenergic Mariah Start: 08-25-2020 labetalol (NORMODYNE;TRANDATE) injection 10 mg methylPREDNISolone 4 mg oral tablet (3 sources) Corticosteroid Start: 04-24-2024 take 1 tablet by mouth once Methylprednisolone (Medrol (Rohit)) 4 mg tablets,dose pack Active 0 PO per package directions April 24, 2024 12:00am PO PER PKG DIR Start: 08-24-2020 End: 08-24-2020 methylPREDNISolone sodium (S PRISCILA-MEDROL) injection 125 mg 24 hr metoprolol succinate 25 mg extended release oral tablet (2 sources) beta-Adrenergic Mariah Start: 04-24-2024 take 25 mg by mouth once daily Metoprolol Succinate Active 25 MG PO Daily April 24, 2024 12:00am perflutren lipid microspheres (DEFINITY) injection 1.65 mg [...] administer the echo contrast. polyethylene glycol 3350 66559 mg powder for oral solution (1 source) Osmotic Laxative Start: 08-25-2020 17 g, Oral, DAILY PRN, Constipation, Starting 08/25/20 at 0700 First line therapy for constipation Promethazine (1 source) Phenothiazine Start: 08-25-2020 promethazine (PHENERGAN) tablet 12.5 mg sacubitril 49 mg / valsartan 51 mg oral tablet (2 sources) Angiotensin 2 Receptor Mariah Start: 04-24-2024 take 1 tablet by mouth twice daily Sacubitril-Valsartan (Entresto) 49-51 mg tablet Active 1 TAB PO Twice daily April 24, 2024 12:00am 3 ml sodium chloride 9 mg/ml injection [...] iopamidol (ISOVUE-370) 76 % injection 90 mL 2 ml ondansetron 2 mg/ml injection (1 [...] Translations: [Paroxysmal atrial fibrillation] Onset: 10-08-2023 Chronic Chronic obstructive pulmonary disease and bronchiectasis (2 sources) Bronchitis; Translations: [Bronchitis, not specified as acute or chronic] 04-24-2024 Episodic Congestive heart failure; nonhypertensive (2 sources) Acute systolic (congestive) heart failure; Translations: [Acute systolic (congestive) heart failure] Onset: 08-28-2023 Chronic Occlusion or stenosis of precerebral arteries (6 sources) Left carotid artery occlusion; Translations: [Right carotid artery stenosis] Onset: 08-28-2023 08-25-2020 Chronic Other lower respiratory disease (2 sources) Cough; Translations: [Cough] 04-24-2024 Episodic Syncope (2 sources) Syncope and collapse; Translations: [Syncope and collapse] Onset: 08-28-2023 Episodic Unclassified (2 sources) Finding related to cerebral function; Translations: [Nihss score 17] 08-25-2020 Unclassified (1 source) Other ventricular tachycardia; Translations: [Other ventricular tachycardia] Onset: 08-28-2023 Unclassified (2 sources) Other persistent atrial fibrillation; Translations: [Other persistent atrial fibrillation] Onset: 08-14-2023 Unclassified (1 source) Cough, unspecified; Translations: [Cough, unspecified] Onset: 04-24-2024 Past or Other Problems Problem Classification Problem Date Documented Da te Episodic/Chronic Unclassified (1 source) Other ventricular tachycardia; Translations: [Other ventricular tachycardia] Onset: 10-08-2023 Results Test Name Value Interpretation Reference Range Facility XR chest 2V*on 04-24-2024 XR chest 2V* [facility] [place] [address] XRay Report Signed Patient: Daisy Zuñiga MR#: [id number] : 1940 Acct:[id number] Age/Sex: 84 / M ADM Date: 04/24/24 Loc: [facility] Room: Type: [facility] Attending Dr: Elisabeth Diaz APRN Copies to: Elisabeth Diaz APRN Ordering Provider: Elisabeth Diaz APRN Date of Service: 04/24/24 XR/XR chest 2V*: R05.9 - Cough, unspecified XR chest 2V* 04/24/2024 9:39 AM SIGNS AND SYMPTOMS: Cough PROTOCOL: Frontal and lateral radiograph of the chest COMPARISON: None FINDINGS: The trachea is midline. The heart and mediastinal structures are within normal limits. Calcified granulomas are noted in the left perihilar region and posteriorly. The lung parenchyma is clear. The bony thorax is intact. Degenerative changes are present in the thoracic spine and shoulders. XR/XR chest 2V* IMPRESSION: No acute cardiopulmonary pathology. Impression dictated by: Butch Lsia M.D.04/24/2024 10:00 AM Dictation Location: [place] [address] Transcribed By: [facility] 04/24/24 1000 Dictated By: Butch Lisa II, MD 04/24/24 0958 Signed By: 04/24/24 1000 Normal [facility] Orders Onlyon 11-24-2023 Orders Only [id number] Daisy Zuñiga Sr. 1940 M Date Provider Department Center 11/24/2023 [facility] Family History Problem Relation Age of Onset Heart disease Mother Heart disease Sister Heart disease Brother Family Status - Relation Status Age at Mother Father Sister Alive Brother Alive Normal [facility] 10-20-2023 Follow-up visit [id number] Daisy Zuñiga Luis Enrique Sr. 1940 M Date Provider Department Center 10/20/2023 MIKE SNOW [facility] Family History Problem Relation Age of Onset Heart disease Mother Heart disease Sister Heart disease Brother Family Status - Relation Status Age at Mother Father Sister Alive Brother Alive Level of Service:59587 [place] OFFICE/OUTPATIENT NEW MODERATE MDM 45 MINUTES Normal [facility] Orders Onlyon 10-20-2023 Orders Only [id number] Daisy Zuñgia Sr. 1940 M Date Provider Department Center 10/20/2023 CLARISSE NIELSEN [facility] Family History Problem Relation Age of Onset Heart disease Mother Heart disease Sister Heart disease Brother Family Status - Relation Status Age at Mother Father Sister Alive Brother Alive Normal [facility] HPon 10-08-2023 HP History Of Present Illness Daisy Zuñiga SrMariposa is a 83 y.o. male presenting for planned coronary angiogram, carotid angiography and RHC. 83-year-old man w/ PMHx of recent stroke, acute HFrEF, carotid disease. In August 2020 he was admitted to [facility] with left-sided hemiplegia and treated with tPA. [...] carotid artery. Antegra (more content not included)... Normal [facility] Nina 10-08-2023 NURSAUSTIN RN educated pt on d/ c instructions. RN encouraged pt to voice any questions or concerns. Pt verbalizes no questions or concerns at this time. [facility] NURSNOTE Dr Munguia notifie d that patient [...] educate patient as the day goes on. Normal [facility] Orders Onlyon 09-30-2023 Orders Only [id number] YogeshDaisy B Sr. 1940 M Date Provider Department Center 09/30/2023 [facility] VAS LAB [place] [facility] Family History Problem Relation Age of Onset Heart disease Mother Heart disease Sister Heart disease Brother Family Status - Relation Status Age at Mother Father Sister Alive Brother Alive [facility] ANETurner 09-01-2023 ANES - Attestation signed by Aden [...] angiogram (Bilateral) - w/ possible intervention Location: [facility] / [facility] V[facility]ULAR LAB (Cath) Providers: Aden Munguia MD Clinical information reviewed: Allergies Meds Physical Exam Airway Cardiovascular Rhythm: irregular Rate: normal Dental Pulmonary Breath sounds clear to auscultation Abdominal Anesthesia Plan ASA 3 other (Moderate sedation) Anesthetic plan and risks discussed with patient. Use of blood products discussed with patient who consented to blood products. Plan discussed with fellow and attending. Additional Equipment Requests Normal [facility] HPon 09-01-2023 HP - Attestation signed by Aden Munguia MD at 09/02/2023 7:17 PM The patient decided to leave and reschedule due to delay in the procedure time. He was recommended against this however he insisted on leaving. We will reschedule for another date. H&P reviewed. The patient was examined and there are no changes to the H&P. Normal [facility] Orders Onlyon 08-28-2023 Orders Only [id number] YogeshDaisy Dudley 1940 M Date Provider Department Center 08/28/2023 [facility] Family History Problem Relation Age of Onset Heart disease Mother Heart disease Sister Heart disease Brother Family Status - Relation Status Age at Mother Father Sister Alive Brother Alive Normal [facility] 08-14-2023 [facility] Cardiology - [facility] Subjective Daisy Zuñiga is a 83 y.o. year old male patient being seen for New Patient and Carotid Artery Disease Patient Active Problem List Diagnosis Acute cerebrovascular accident (CVA) ([facility]) Carotid stenosis, right Nihss score 17 Occlusion [...] In August 2020 he was admitted to [facility] with left-sided hemiplegia and treated with tPA. [...] flow. LE (more content not included)... Normal [facility] 08-14-2023 Follow-up visit [id number] Daisy Zuñiga 1940 M Date Provider Department Center 08/14/2023 ADEN FERNANDEZ [facility] Family History Problem Relation Age of Onset Heart disease Mother Heart disease Sister Heart disease Brother Family Status - Relation Status Age at Mother Father Sister Alive Brother Alive Level of Service:53936 [place] OFFICE/OUTPATIENT NEW HIGH MDM 60-74 MINUTES Reason for Visit and Comments: New Patient [632] Carotid Artery Disease [453] Normal [facility] INSULINon 02-13-2023 Insulin 11.5 uIU/mL Normal 2.6-24.9 [facility] Comment on above: Performed By: #### I NSULIN #### [facility] [address] [place] [address] Dr. Rebel Victoria CBC AUTO DIFFon 02-12-2023 BASO # 0.0 103/ul Normal 0.0-0.1 [facility] Comment on above: Performed By: #### C BC #### [facility] [address] [place] [address] [address] Rebel Victoria Basophils/100 WBC (Bld) 0.4 % Normal 0.2-2.0 [facility] Comment on above: Performed By: #### C BC #### [facility] [address] [place] [address] Dr. Rebel Victoria EO # 0.3 103/ul Normal 0.0-0.7 [facility] Comment on above: Performed By: #### C BC #### [facility] [address] [address] [address] Rebel Victoria Eosinophils/100 WBC (Bld) 3.2 % Normal 0.9-7.0 [facility] Comment on above: Performed By: #### C BC #### [facility] [address] [address] [address] Rebel Victoria Erythrocyte distribution width (RBC) [Ratio] 13.4 % Normal 11.0-15.0 [facility] Comment on above: Performed By: #### C BC #### [facility] [address] [place] [address] Dr. Rebel Victoria Hematocrit (Bld) [Volume fraction] 47.6 % Normal 42.0-54.0 [facility] Comment on above: Performed By: #### C BC #### [facility] [address] [place] [address] Dr. Rebel Victoria Hemoglobin (Bld) [Mass/Vol] 15.8 g/dL Normal 14.0-18.0 [facility] Comment on above: Performed By: #### C BC #### [facility] [address] [place] [address] Dr. Rebel Victoria IG # 0.04 10e3/ul Critically high 0.00-0.[address] [facility] Comment on above: Performed By: #### C BC #### [facility] [address] [place] [address] Dr. Rebel Victoria IG % 0.4 % Normal 0.0-0.5 [facility] Comment on above: Performed By: #### C BC #### [facility] [address] [place] [address] Dr. Rebel Victoria LYMPH # 3.9 103/ul Critically high 1.2-3.8 [facility] Comment on above: Performed By: #### C BC #### [facility] [address] [place] [address] Dr. Rebel Victoria Lymphocytes/100 WBC (Bld) 37.3 % Normal 20.5-60.0 [facility] Comment on above: Performed By: #### C BC #### [facility] [address] [place] [address] Dr. Rebel Victoria MANUAL DIFF REQ NO Normal [facility] Comment on above: Performed By: #### C BC #### [facility] [address] [place] [address] Dr. Rebel Victoria MCH (RBC) [Entitic mass] 31.6 pg Normal 25.9-34.0 [facility] Comment on above: Performed By: #### C BC #### [facility] [address] [place] [address] Dr. Rebel Victoria MCHC (RBC) [Mass/Vol] 33.2 g/dL Normal 29.9-35.2 [facility] Comment on above: Performed By: #### C BC #### [facility] [address] [place] [address] Dr. Rebel Victoria MCV (RBC) [Entitic vol] 95.2 fL Critically high 80.0-94.0 [facility] Comment on above: Performed By: #### C BC #### [facility] [address] [place] [address] Dr. Rebel Victoria MONO # 0.9 103/ul Critically high 0.3-0.8 [facility] Comment on above: Performed By: #### C BC #### [facility] [address] [place] [address] Dr. Rebel Victoria Monocytes/100 WBC (Bld) 8.6 % Normal 1.7-12.0 [facility] Comment on above: Performed By: #### C BC #### [facility] [address] [place] [address] Dr. Rebel Victoria NEUT # 5.2 103/ul Normal 1.4-6.5 [facility] Comment on above: Performed By: #### C BC #### [facility] [address] [place] [address] Dr. Rebel Victoria Neutrophils/100 WBC (Bld) 50.1 % Normal 43.0-75.0 [facility] Comment on above: Performed By: #### C BC #### [facility] [address] [place] [address] Dr. Rebel Victoria Platelet mean volume (Bld) [Entitic vol] 10.9 fL Normal 9.5-13.5 [facility] Comment on above: Performed By: #### C BC #### [facility] [address] [place] [address] Dr. Rebel Victoria PLT 237 103/ul Normal 150-450 [facility] Comment on above: Performed By: #### C BC #### [facility] [address] [address] [address] Rebel Victoria RBC 5.00 106/ul Normal 4.70-6.10 [facility] Comment on above: Performed By: #### C BC #### [facility] [address] [place] [address] Dr. Rebel Victoria WBC 10.4 103/ul Normal 4.0-11.0 [facility] Comment on above: Performed By: #### C BC #### [facility] [address] [place] [address] Dr. Rebel Victoria FREE THYROXINE INDEX T7on FTI 2.63 Normal 1.30-4.50 [facility] Comment on above: Performed By: #### C MP, LIPID, TSH, T7, URIC #### [facility] [address] [place] [address] Dr. Rebel Victoria T3U 36.0 % Normal 33.0-40.0 [facility] Comment on above: Performed By: #### C MP, LIPID, TSH, T7, URIC #### [facility] [address] [place] [address] Dr. Rebel Victoria T4 [Mass/Vol] 7.30 ug/dL Normal 4.50-12.10 [facility] Comment on above: Performed By: #### C MP, LIPID, TSH, T7, URIC #### [facility] [address] [place] [address] Dr. Rebel Victoria GLYCOHEMOGLOBIN A1Con 2022 ADA RECOMMENDATION SEE BELOW Normal [facility] Comment on above: Result Comment: ADA RECOMMENDED LIMIT 4.0 - 6.0 ADA THERAPEUTIC TARGET < 7.0 ACTION SUGGESTED > 7.0 Performed By: #### A 1C #### [facility] [address] [address] [address] Rebel Victoria HbA1c (Bld) [Mass fraction] 5.6 % Normal 4.5-6.2 [facility] Comment on above: Performed By: #### A 1C #### [facility] [address] [address] [address] Rebel Victoria LIPID PROFILEon 02-12-2023 CHOL-HDL RATIO NORM SEE BELOW Normal [facility] Comment on above: Result Comment: 3.3 - 4.4 LOW RISK 4.4 - 7.1 AVERAGE RISK 7.1 - 11.0 MODERATE RISK >11.0 HIGH RISK Performed By: #### C MP, LIPID, TSH, T7, URIC #### [facility] [address] [address] [address] Rebel Victoria Cholesterol [Mass/Vol] 128 mg/dL Normal <=200 [facility] Comment on above: Performed By: #### C MP, LIPID, TSH, T7, URIC #### [facility] [address] [address] [address] Rebel Victoria Cholesterol in HDL [Mass/Vol] 66 mg/dL Critically high 40-60 [facility] Comment on above: Performed By: #### C MP, LIPID, TSH, T7, URIC #### [facility] [address] [address] [address] Rebel Victoria Cholesterol in LDL [Mass/Vol] 49.0 mg/dL Normal [facility] Comment on above: Performed By: #### C MP, LIPID, TSH, T7, URIC #### [facility] [address] [address] [address] Rebel Victoria Cholesterol.total/Ch olesterol in HDL [Mass ratio] 1.9 {ratio} Normal [facility] Comment on above: Performed By: #### C MP, LIPID, TSH, T7, URIC #### [facility] [address] [address] [address] Rebel Victoria HDL NORMAL > or = 60 mg/dl - LO W CARDIOVASCULAR RISK <40 mg/dl - HIGH CARDIOVASCULAR RISK Normal [facility] Comment on above: Performed By: #### C MP, LIPID, TSH, T7, URIC #### [facility] [address] [address] [address] Rebel Victoria LDL CALC NORMAL SEE BELOW Normal [facility] Comment on above: Result Comment: <100 mg/dl OPTIMAL 100 - 129 mg/dl NEAR OR ABOVE OPTIMAL 130 - 159 mg/dl BORDERLINE HIGH 160 - 189 mg/dl HIGH >190 mg/dl VERY HIGH Performed By: #### C MP, LIPID, TSH, T7, URIC #### [facility] [address] [address] [address] Rebel Victoria Triglyceride [Mass/Vol] 65 mg/dL Normal <=150 [facility] Comment on above: Performed By: #### C MP, LIPID, TSH, T7, URIC #### [facility] [address] [place] [address] Dr. Rebel Victoria VLDL CALC 13.0 mg/dL Normal [facility] Comment on above: Performed By: #### C MP, LIPID, TSH, T7, URIC #### [facility] [address] [place] [address] Dr. Rebel Victoria PROF 14(COMP METB)on 023 Albumin [Mass/Vol] 3.9 g/dL Normal 3.4-5.0 [facility] Comment on above: Performed By: #### C MP, LIPID, TSH, T7, URIC #### [facility] [address] [place] [address] Dr. Rebel Victoria Albumin/Globulin [Mass ratio] 1.1 {ratio} Normal [facility] Comment on above: Performed By: #### C MP, LIPID, TSH, T7, URIC #### [facility] [address] [place] [address] Dr. Rebel Victoria ALP [Catalytic activity/Vol] 102 U/L Normal 46-116 [facility] Comment on above: Performed By: #### C MP, LIPID, TSH, T7, URIC #### [facility] [address] [place] [address] Dr. Rebel Victoria ALT [Catalytic activity/Vol] 22 U/L Normal 16-63 [facility] Comment on above: Performed By: #### C MP, LIPID, TSH, T7, URIC #### [facility] [address] [address] [address] Rebel Victoria Anion gap [Moles/Vol] 9.5 mmol/L Normal [facility] Comment on above: Performed By: #### C MP, LIPID, TSH, T7, URIC #### [facility] [address] [place] [address] Dr. Rebel Victoria AST [Catalytic activity/Vol] 19 U/L Normal 15-37 [facility] Comment on above: Performed By: #### C MP, LIPID, TSH, T7, URIC #### [facility] [address] [place] [address] Dr. Rebel Victoria Bilirubin [Mass/Vol] 0.9 mg/dL Normal 0.2-1.0 [facility] Comment on above: Performed By: #### C MP, LIPID, TSH, T7, URIC #### [facility] [address] [place] [address] Dr. Rebel Victoria Calcium [Mass/Vol] 9.3 mg/dL Normal 8.5-10.1 [facility] Comment on above: Performed By: #### C MP, LIPID, TSH, T7, URIC #### [facility] [address] [place] [address] Dr. Rebel Victoria Chloride [Moles/Vol] 107 mmol/L Normal 98-107 [facility] Comment on above: Performed By: #### C MP, LIPID, TSH, T7, URIC #### [facility] [address] [place] [address] Dr. Rebel Victoria CO2 [Moles/Vol] 29.8 mmol/L Normal 21.0-32.0 [facility] Comment on above: Performed By: #### C MP, LIPID, TSH, T7, URIC #### [facility] [address] [place] [address] Dr. Rebel Victoria Creatinine [Mass/Vol] 1.09 mg/dL Normal 0.70-1.30 [facility] Comment on above: Performed By: #### C MP, LIPID, TSH, T7, URIC #### [facility] [address] [place] [address] Dr. Rebel Victoria EGFR-AF FRENCH >60 Normal >=60 [facility] Comment on above: Performed By: #### C MP, LIPID, TSH, T7, URIC #### [facility] [address] [place] [address] Dr. Rebel Victoria EGFR-NON AF FRENCH >60 Normal >=60 [facility] Comment on above: Performed By: #### C MP, LIPID, TSH, T7, URIC #### [facility] [address] [place] [address] Dr. Rebel Victoria Globulin (S) [Mass/Vol] 3.7 g/dL Normal [facility] Comment on above: Performed By: #### C MP, LIPID, TSH, T7, URIC #### [facility] [address] [place] [address] Dr. Rebel Victoria Glucose [Mass/Vol] 114 mg/dL Normal [facility] Comment on above: Performed By: #### C MP, LIPID, TSH, T7, URIC #### [facility] [address] [place] [address] Dr. Rebel Victoria Performed By: #### A 1C #### [facility] [address] [place] [address] Dr. Rebel Victoria Potassium [Moles/Vol] 4.3 mmol/L Normal 3.5-5.1 [facility] Comment on above: Performed By: #### C MP, LIPID, TSH, T7, URIC #### [facility] [address] [place] [address] Dr. Rebel Victoria Protein [Mass/Vol] 7.6 g/dL Normal 6.4-8.2 [facility] Comment on above: Performed By: #### C MP, LIPID, TSH, T7, URIC #### [facility] [address] [place] [address] Dr. Rebel Victoria Sodium [Moles/Vol] 142 mmol/L Normal 136-145 [facility] Comment on above: Performed By: #### C MP, LIPID, TSH, T7, URIC #### [facility] [address] [address] [address] Rebel Victoria Urea nitrogen [Mass/Vol] 13.0 mg/dL Normal 7.0-18.0 [facility] Comment on above: Performed By: #### C MP, LIPID, TSH, T7, URIC #### [facility] [address] [address] [address] Rebel Victoria Urea nitrogen/Creatinine [Mass ratio] 11.9 mg/mg Normal [facility] Comment on above: Performed By: #### C MP, LIPID, TSH, T7, URIC #### [facility] [address] [address] [address] Rebel Victoria TSHon 02-12-2023 TSH 4.127 uIU/mL Critically high 0.358-3.740 [facility] Comment on above: Performed By: #### C MP, LIPID, TSH, T7, URIC #### [facility] [address] [address] [address] Rebel Victoria URIC ACID SERUMon 02-12-2023 Urate [Mass/Vol] 5.5 mg/dL Normal 3.5-7.2 [facility] Comment on above: Performed By: #### C MP, LIPID, TSH, T7, URIC #### [facility] [address] [place] [address] Dr. Rebel Victoria IR ANGIOGRAM CAROTID CEREBRA L BILATERALon 08-29-2020 IR ANGIOGRAM CAROTID CEREBRAL BILATERAL Date of Service: 08/24/2020 Diagnosis: Acute Ischemic Stroke with mechanical thrombectomy right middle cerebral artery occlusion Patient arrived to the angio suite at: 2154 Puncture obtained at: 2225 Vascular access was removed at: 2318 [place]: Parviz Anna MD PhD Procedures: 1. Mechanical thrombectomy of the right M1 middle cerebral artery (MCA) with Stent retriever and Combined Suctioning width BGC. 2. Right Internal Carotid Artery (ICA) Cerebral Angiography 3. Right Common Carotid Artery (CCA) Cerebral Angiography 4. Left Common Carotid Artery (CCA) Cerebral Angiography 5. Right Vertebral Artery (VA) Cerebral Angiography 6. Right Common Femoral Artery (KENNEL KEEPER) Angiogram Neurointerventionalis t: Rohit Rawls MD Access: [...] with a micropuncture technique, and a 8 Bahraini short sheath was placed within the right common femoral artery, establishing arterial access using Seldinger technique. Right CCA Technique: the right CCA was selectively catheterized under fluoroscopic guidance and over the guide wire with a 5F Bach select catheter together with the 8F Flowgate balloon guide catheter ([facility]). Images were obtained in standard biplane projections. [...] to the right MCA territory per the [place] Society of Interventional and Therapeutic Neuroradiology Radiology/Society [...] reported findings confirmed and evaluated by Rohit Rwals. Rohit Rawls MD Final report electronically signed by Rohit Rawls M.D. on 08/29/2020 4:15 PM Interpreted by: MD Parviz Boudreaux MD Signed by: Rohit Rawls MD 08/29/20 Final result Normal [facility] BASIC METABOLIC PANELon 10-2 Anion gap [Moles/Vol] 7 mmol/L Low 9 - 17 mmol/L [place] Bun/Cre Ratio NOT REPORTED [place] Calcium [Mass/Vol] 8.3 mg/dL Low 8.6 - 10. 4 mg/dL [place] Chloride [Moles/Vol] 108 mmol/L High 98 - 10 7 mmol/L [place] CO2 [Moles/Vol] 25 mmol/L 20 - 31 mmol/L [place] Creatinine [Mass/Vol] 0.82 mg/dL 0.7 - 1.2 mg/dL [place] GFR >60 >60 mL/min [place] GFR Non- >60 >60 mL/min [place] GFR/1.73 sq M predicted among non-blacks MDRD (S/P/Bld) [Vol rate/Area] [place] Comment on above: Average GFR for 70 o r more years old: 75 mL/min/1.73sq m Chronic Kidney Disease: <60 mL/min/1.73sq m Kidney failure: <15 mL/min/1.73sq m eGFR calculated using average adult body mass. Additional eGFR calculator available at: http://www.PeopleDoc/multiple_crcl_2012.htm GFR/1.73 sq M predicted among non-blacks MDRD (S/P/Bld) [Vol rate/Area] NOT REPORTED [place] Glucose [Mass/Vol] 110 mg/dL High 70 - 99 mg/dL [place] Interpretation and review of laboratory results Abnormal [place] Potassium [Moles/Vol] 4.0 mmol/L 3.7 - 5.3 mmol/L [place] Sodium [Moles/Vol] 140 mmol/L 135 - 144 mmol/L [place] Urea nitrogen [Mass/Vol] 13 mg/dL 8 - 23 mg/dL [place] Basic Metabolic Profon 08-26 (cont.) Normal [facility] Comment on above: Result Comment: Aver age GFR for 70 or more years old: 75 mL/min/1.73sq m Chronic Kidney Disease: <60 mL/min/1.73sq m Kidney failure: <15 mL/min/1.73sq m eGFR calculated using average adult body mass. Additional eGFR calculator available at: http://www.PeopleDoc/multiple_crcl_2012.htm Performed By: #### S YENNI #### [facility] [address] [place] [address] [address] Specialist: Manuelito Mckay MD Anion gap [Moles/Vol] 7 mmol/L Low 9-17 [facility] Comment on above: Performed By: #### S EBKE #### [facility] [address] [place] [phone] Specialist: Manuelito Mckay MD Calcium [Mass/Vol] 8.3 mg/dL Low 8.6-10.4 [facility] Comment on above: Performed By: #### S TROKE #### [facility] [address] [place] [phone] Specialist: Manuelito Mckay MD Chloride [Moles/Vol] 108 mmol/L High 98-107 [facility] Comment on above: Performed By: #### S TROKE #### [address] [address] [address] Specialist: Manuelito Mckay MD CO2 [Moles/Vol] 25 mmol/L Normal 20-31 [facility] Comment on above: Performed By: #### S TROKE #### [address] [address] [address] Specialist: Manuelito Mckay MD Creatinine [Mass/Vol] 0.82 mg/dL Normal 0.70-1.20 [facility] Comment on above: Performed By: #### S TROKE #### [address] [address] [address] Specialist: Manuelito Mckay MD GFR, Amer >60 Normal >60 [facility] Comment on above: Performed By: #### S TROKE #### [address] [address] [address] Specialist: Manuelito Mckay MD GFR,non Amer >60 Normal >60 [facility] Comment on above: Performed By: #### S TROKE #### [address] [address] [address] Specialist: Manuelito Mckay MD Glucose [Mass/Vol] 110 mg/dL High 70-99 [facility] Comment on above: Performed By: #### S TROKE #### [address] [address] [address] Specialist: Manuelito Mckay MD Potassium [Moles/Vol] 4.0 mmol/L Normal 3.7-5.3 [facility] Comment on above: Performed By: #### S TROKE #### [address] [address] [address] Specialist: Manuelito Mckay MD Sodium [Moles/Vol] 140 mmol/L Normal 135-144 [facility] Comment on above: Performed By: #### S YENNI #### [address] [address] [address] Specialist: Manuelito Mckay MD Urea nitrogen [Mass/Vol] 13 mg/dL Normal 8-23 [facility] Comment on above: Performed By: #### S YENNI #### [address] [address] [address] Specialist: Manuelito Mckay MD BUN/CRE Ratio NOT REPORTED Normal 9-20 [facility] Comment on above: Performed By: #### S YENNI #### [address] [address] [address] Specialist: Manuelito Mckay MD Staging: NOT REPORTED Normal [facility] Comment on above: Performed By: #### S YENNI #### [address] [address] [address] Specialist: Manuelito Mckay MD CBCon 08-26-2020 Erythrocyte distribution width (RBC) [Ratio] 13.5 % Normal 11.8-14.4 [facility] Comment on above: Performed By: #### C BC, TROPI, LIPR, GLYHGB #### [facility] [address] [place] [address] [address] Specialist: Manuelito Mckay MD Hematocrit (Bld) [Volume fraction] 44.1 % Normal 40.7-50.3 [facility] Comment on above: Performed By: #### C BC, TROPI, LIPR, GLYHGB #### [facility] [address] [place] [address] [address] Specialist: Manuelito Mckay MD Hemoglobin (Bld) [Mass/Vol] 14.0 g/dL Normal 13.0-17.0 [facility] Comment on above: Performed By: #### C BC, TROPI, LIPR, GLYHGB #### [facility] [address] [place] [address] [address] Specialist: Manuelito Mckay MD MCH (RBC) [Entitic mass] 31.6 pg Normal 25.2-33.5 [facility] Comment on above: Performed By: #### C BC, TROPI, LIPR, GLYHGB #### [address] [address] [address] Specialist: Manuelito Mckay MD MCHC (RBC) [Mass/Vol] 31.7 g/dL Normal 28.4-34.8 [facility] Comment on above: Performed By: #### C BC, TROPI, LIPR, GLYHGB #### [address] [address] [address] Specialist: Manuelito Mckay MD MCV (RBC) [Entitic vol] 99.5 fL Normal 82.6-102.9 [facility] Comment on above: Performed By: #### C BC, TROPI, LIPR, GLYHGB #### [address] [address] [address] Specialist: Manuelito Mckay MD NRBC Automated 0.0 per 100 WBC Normal 0.0 [facility] Comment on above: Performed By: #### C BC, TROPI, LIPR, GLYHGB #### [address] [address] [address] Specialist: Manuelito Mckay MD Platelet mean volume (Bld) [Entitic vol] 11.4 fL Normal 8.1-13.5 [facility] Comment on above: Performed By: #### C BC, TROPI, LIPR, GLYHGB #### [facility] [address] [place] [phone] [address] Specialist: Manuelito Mckay MD Platelets (Bld) [#/Vol] 191 10*3/uL Normal 138-453 [facility] Comment on above: Performed By: #### C BC, TROPI, LIPR, GLYHGB #### [facility] [address] [place], [place] [phone] Court Specialist: Manuelito Mckay MD RBC (Bld) [#/Vol] 4.43 10*6/uL Normal 4.21-5.77 [facility] Comment on above: Performed By: #### C BC, TROPI, LIPR, GLYHGB #### [facility] [address] [place], [place] [phone] Court Specialist: Manuelito Mckay MD WBC (Bld) [#/Vol] 21.1 10*3/uL High 3.5-11.3 [facility] Comment on above: Performed By: #### C BC, TROPI, LIPR, GLYHGB #### [facility] [address] [place], [place] [phone] Court Specialist: Manuelito Mckay MD Erythrocyte distribution width (RBC) [Ratio] 13.5 % 11.8 - 14.4 % [place] Hematocrit (Bld) [Volume fraction] 44.1 % 40.7 - 50.3 % [place] Hemoglobin (Bld) [Mass/Vol] 14.0 g/dL 13 - 17 g/dL [place] Interpretation and review of laboratory results Abnormal [place] MCH (RBC) [Entitic mass] 31.6 pg 25.2 - 33.5 pg [place] MCHC (RBC) [Mass/Vol] 31.7 g/dL 28.4 - 34.8 g/dL [place] MCV (RBC) [Entitic vol] 99.5 fL 82.6 - 102.9 fL [place] Platelet mean volume (Bld) [Entitic vol] 11.4 fL 8.1 - 13.5 fL [place] Platelets (Bld) [#/Vol] 191 10*3/uL [place] RBC (Bld) [#/Vol] 4.43 10*6/uL 4.21 - 5.7 7 m/uL [place] WBC (Bld) [#/Vol] 21.1 10*3/uL High [place] WBC (Bld) [#/Vol] 0.0 10*3/uL 0.0 per 10 0 WBC [place] CBC WITH AUTO DIFFERENTIALon 08-26-2020 Basophils (Bld) [#/Vol] 0.03 10*3/uL [place] Basophils/100 WBC (Bld) 0 % 0 - 2 % [place] Differential Type NOT REPORTED [place] Eosinophils (Bld) [#/Vol] 0.06 10*3/uL [place] Eosinophils/100 WBC (Bld) 0 % Low 1 - 4 % [place] Erythrocyte distribution width (RBC) [Ratio] 13.6 % 11.8 - 14.4 % [place] Hematocrit (Bld) [Volume fraction] 42.7 % 40.7 - 50.3 % [place] Hemoglobin (Bld) [Mass/Vol] 13.6 g/dL 13 - 17 g/dL [place] Immature granulocytes (Bld) [#/Vol] 1 % High 0 [place] Immature granulocytes (Bld) [#/Vol] 0.10 10*3/uL [place] Interpretation and review of laboratory results Abnormal [place] Lymphocytes (Bld) [#/Vol] 2.97 10*3/uL [place] Lymphocytes/100 WBC (Bld) 16 % Low 24 - 43 % [place] MCH (RBC) [Entitic mass] 32.1 pg 25.2 - 33.5 pg [place] MCHC (RBC) [Mass/Vol] 31.9 g/dL 28.4 - 34.8 g/dL [place] MCV (RBC) [Entitic vol] 100.7 fL 82.6 - 102.9 fL [place] Monocytes (Bld) [#/Vol] 1.03 10*3/uL [place] Monocytes/100 WBC (Bld) 6 % 3 - 12 % [place] Platelet mean volume (Bld) [Entitic vol] 11.4 fL 8.1 - 13.5 fL [place] Platelets (Bld) [#/Vol] 190 10*3/uL [place] Platelets (Bld) [#/Vol] NOT REPORTED [place] RBC (Bld) [#/Vol] 4.24 10*6/uL 4.21 - 5.7 7 m/uL [place] RBC morphology finding Nom (Bld) NOT REPORTED [place] Segmented neutrophils/100 WBC (Bld) 77 % High 36 - 65 % [place] Segs Absolute 13.99 [place] WBC (Bld) [#/Vol] 18.2 10*3/uL High [place] WBC (Bld) [#/Vol] 0.0 10*3/uL 0.0 per 10 0 WBC [place] WBC Morphology NOT REPORTED [place] CBC with Diffon 08-26-2020 Abs. Basophil 0.03 k/uL Normal 0.00-0.20 [facility] Comment on above: Performed By: #### S YENNI #### [facility] [address] [place] [address] [address] Specialist: Manuelito Mckay MD Abs.Imm.Granulocyte 0.10 k/uL Normal 0.00-0.30 [facility] Comment on above: Performed By: #### S EBKE #### [facility] [address] [place] [address] Court Specialist: Manuelito Mckay MD Abs.Neutrophil (Seg) 13.99 k/uL High 1.50-8.10 [facility] Comment on above: Performed By: #### S EBKE #### [facility] [place] [address] Court Specialist: Manuelito Mkcay MD Basophils/100 WBC (Bld) 0 % Normal 0-2 [facility] Comment on above: Performed By: #### S EBKE #### [address] [address] [address] Specialist: Manuelito Mckay MD Eosinophils (Bld) [#/Vol] 0.06 10*3/uL Normal 0.00-0.44 [facility] Comment on above: Performed By: #### S BEKE #### [address] [address] [address] Specialist: Manuelito Mckay MD Eosinophils/100 WBC (Bld) 0 % Low 1-4 [facility] Comment on above: Performed By: #### S YENNI #### [address] [address] [address] Specialist: Manuelito Mckay MD Erythrocyte distribution width (RBC) [Ratio] 13.6 % Normal 11.8-14.4 [facility] Comment on above: Performed By: #### S YENNI #### [address] [address] [address] Specialist: Manuelito Mckay MD Hematocrit (Bld) [Volume fraction] 42.7 % Normal 40.7-50.3 [facility] Comment on above: Performed By: #### S EBKE #### [address] [address] [address] Specialist: Manuelito Mckay MD Hemoglobin (Bld) [Mass/Vol] 13.6 g/dL Normal 13.0-17.0 [facility] Comment on above: Performed By: #### S EBKE #### [address] [address] [address] Specialist: Manuelito Mckay MD Immature granulocytes (Bld) [#/Vol] 1 % High 0 [facility] Comment on above: Performed By: #### S EBKE #### [facility] [address] [place] [address] [address] Specialist: Manuelito Mckay MD Lymphocytes (Bld) [#/Vol] 2.97 10*3/uL Normal 1.10-3.70 [facility] Comment on above: Performed By: #### S YENNI #### [facility] [address] [place] [address] [address] [address] Specialist: Manuelito Mckay MD Lymphocytes/100 WBC (Bld) 16 % Low 24-43 [facility] Comment on above: Performed By: #### S YENNI #### [facility] [address] [place] [address] [address] Specialist: Manuelito Mckay MD MCH (RBC) [Entitic mass] 32.1 pg Normal 25.2-33.5 [facility] Comment on above: Performed By: #### S YENNI #### [facility] [address] [place] [address] [address] Specialist: Manuelito Mckay MD MCHC (RBC) [Mass/Vol] 31.9 g/dL Normal 28.4-34.8 [facility] Comment on above: Performed By: #### S YENNI #### [facility] [address] [place] [address] [address] Specialist: Manuelito Mckay MD MCV (RBC) [Entitic vol] 100.7 fL Normal 82.6-102.9 [facility] Comment on above: Performed By: #### S YENNI #### [facility] [address] [place] [address] [address] Specialist: Manuelito Mckay MD Monocytes (Bld) [#/Vol] 1.03 10*3/uL Normal 0.10-1.20 [facility] Comment on above: Performed By: #### S TROKE #### [address] [address] [address] Specialist: Manuelito Mckay MD Monocytes/100 WBC (Bld) 6 % Normal 3-12 [facility] Comment on above: Performed By: #### S EBKE #### [address] [address] [address] Specialist: Manuelito Mckya MD Neutrophil (Seg) 77 % High 36-65 [facility] Comment on above: Performed By: #### S EBKE #### [address] [address] [address] Specialist: Manuelito Mckay MD NRBC Automated 0.0 per 100 WBC Normal 0.0 [facility] Comment on above: Performed By: #### S YENNI #### [address] [address] [address] Specialist: Manuelito Mckay MD Platelet mean volume (Bld) [Entitic vol] 11.4 fL Normal 8.1-13.5 [facility] Comment on above: Performed By: #### S YENNI #### [address] [address] [address] Specialist: Manuelito Mckay MD Platelets (Bld) [#/Vol] 190 10*3/uL Normal 138-453 [facility] Comment on above: Performed By: #### S EBKE #### [address] [address] [address] Specialist: Manuelito Mckay MD RBC (Bld) [#/Vol] 4.24 10*6/uL Normal 4.21-5.77 [facility] Comment on above: Performed By: #### S EBKE #### [address] [address] [address] Specialist: Manuelito Mckay MD WBC (Bld) [#/Vol] 18.2 10*3/uL High 3.5-11.3 [facility] Comment on above: Performed By: #### S TROKE #### [facility] [place] [address] Court Specialist: Manuelito Mckay MD Auto Diff Performed NOT REPORTED Normal [facility] Comment on above: Performed By: #### S TROKE #### [facility] [address] [place] [address] [address] Specialist: Manuelito Mckay MD Platelets (Bld) [#/Vol] NOT REPORTED Normal [facility] Comment on above: Performed By: #### S TROKE #### [facility] [address] [place] [address] [address] [address] Specialist: Manuelito Mckay MD RBC morphology finding Nom (Bld) NOT REPORTED Normal [facility] Comment on above: Performed By: #### S TROKE #### [facility] [address] [place] [address] [address] Specialist: Manuelito Mckay MD WBC Morphology NOT REPORTED Normal [facility] Comment on above: Performed By: #### S TROKE #### [facility] [address] [place] [address] [address] Specialist: Manuelito Mckay MD CT HEAD WO CONTRASTon [...] Deshawn Lorenzo MD 08/26/20 Final result Normal [facility] EXAMINATION: CT OF THE HEAD WITHOUT CONTRAST, [...] lytic or blastic osseous lesions are identified. [facility] [place], [place], [facility] Incoming Radiant Results From [employer] - 08/26/2020 12:14 AM EDT EXAMINATION: CT [...] MCA territory. 2. No acute intracranial hemorrhage. [place] 1. Relatively small acute infarct within the posterior margin of the right basal ganglia given the large ischemic penumbra evident on the prior perfusion images within the right MCA territory. 2. No acute intracranial hemorrhage. [place] Hemoglobin A1Con 08-26-2020 HbA1c (Bld) [Mass fraction] 5.7 % Normal 4.0-6.0 [facility] Comment on above: Performed By: #### S YENNI #### [facility] [address] [place], [place] [phone] Court Specialist: Manuelito Mckay MD HbA1c (Bld) [Mass fraction] 117 mg/dL Normal [facility] Comment on above: Result Comment: The ADA and AACC recommend providing the estimated average glucose result to permit better patient understanding of their HBA1c result. Performed By: #### S YENNI #### [facility] [address] [place], [place] [phone] Court Specialist: Manuelito Mckay MD Hemoglobin A1con 08-26-2020 Glucose [Mass/Vol] 117 mg/dL [place] Comment on above: The ADA and AACC rec ommend providing the estimated average glucose result to permit better patient understanding of their HBA1c result. HbA1c (Bld) [Mass fraction] 5.7 % 4 - 6 % [place] Lipid Profileon 08-26-2020 Cholesterol [Mass/Vol] 146 mg/dL Normal <200 [facility] Comment on above: Result Comment: Cholesterol Guidelines: <200 Desirable 200-240 Borderline >240 Undesirable Performed By: #### C BC, TROPI, LIPR, GLYHGB #### [facility] [address] [place] [address] [address] Special[address]: Manuelito Mckay MD Cholesterol in HDL [Mass/Vol] 51 mg/dL Normal >40 [facility] Comment on above: Result Comment: HDL Guidelines: <40 Undesirable 40-59 Borderline >59 Desirable Performed By: #### C BC, TROPI, LIPR, GLYHGB #### [facility] [address] [place] [address] [address] Specialist: Manuelito Mckay MD Cholesterol in LDL [Mass/Vol] 73 mg/dL Normal 0-130 [facility] Comment on above: Result Comment: LDL Guidelines: <100 Desirable 100-129 Near to/above Desirable 130-159 Borderline >159 Undesirable Direct (measured) LDL and calculated LDL are not interchangeable tests. Performed By: #### C BC, TROPI, LIPR, GLYHGB #### [facility] [place] [address] Court Specialist: Manuelito Mckay MD Cholesterol.total/Ch olesterol in HDL [Mass ratio] 2.9 {ratio} Normal <5 [facility] Comment on above: Performed By: #### C BC, TROPI, LIPR, GLYHGB #### [facility] [address] [place] [address] [address] Specialist: Manuelito Mckay MD Triglyceride [Mass/Vol] 110 mg/dL Normal <150 [facility] Comment on above: Result Comment: Triglyceride Guidelines: <150 Desirable 150-199 Borderline 200-499 High >499 Very high Based on AHA Guidelines for fasting triglyceride, August 2012. Performed By: #### C BC, TROPI, LIPR, GLYHGB #### [facility] [address] [place], [place] [phone] Court Specialist: Manuelito Mckay MD Cholesterol in VLDL [Mass/Vol] NOT REPORTED Normal 1-30 [facility] Comment on above: Performed By: #### C BC, TROPI, LIPR, GLYHGB #### [facility] [address] [place], [place] [phone] Court Specialist: Manuelito Mckay MD Lipid panel - fastingon 08-03 Cholesterol [Mass/Vol] 146 mg/dL <200 [place] Comment on above: Cholesterol Guidelines: <200 Desirable 200-240 Borderline >240 Undesirable Cholesterol in HDL [Mass/Vol] 51 mg/dL >40 [place] Comment on above: HDL Guidelines: <40 Undesirable 40-59 Borderline >59 Desirable Cholesterol in LDL [Mass/Vol] 73 mg/dL 0 - 130 mg/dL [place] Comment on above: LDL Guidelines: <100 Desirable 100-129 Near to/above Desirable 130-159 Borderline >159 Undesirable Direct (measured) LDL and calculated LDL are not interchangeable tests. Cholesterol in VLDL [Mass/Vol] NOT REPORTED 1 - 30 mg/dL [place] Cholesterol.total/Ch olesterol in HDL [Mass ratio] 2.9 {ratio} <5 [place] Triglyceride [Mass/Vol] 110 mg/dL <150 [place] Comment on above: Triglyceride Guidelines: <150 Desirable 150-199 Borderline 200-499 High >499 Very high Based on AHA Guidelines for fasting triglyceride, August 2012. Troponinon 08-26-2020 Troponin I.cardiac [Mass/Vol] 15 ng/L Normal 0-22 [facility] Comment on above: Result Comment: High Sensitivity Troponin values cannot be compared with other Troponin methodologies. Patients with high levels of Biotin oral intake (i.e >5mg/day) may have falsely decreased Troponin levels. Samples collected within 8 hours of biotin intake may require additional information for diagnosis. Performed By: #### C BC, TROPI, LIPR, GLYHGB #### [facility] [address] [place], [place] [id number] Court Specialist: Manuelito Mckay MD Troponin I.cardiac [Mass/Vol] NOT REPORTED Normal <0.03 [facility] Comment on above: Performed By: #### C BC, TROPI, LIPR, GLYHGB #### [facility] [address] [place], [place] [id number] Court Specialist: Manuelito Mckay MD Troponin I.cardiac [Mass/Vol] NOT REPORTED [place] Troponin T.cardiac [Mass/Vol] NOT REPORTED <0.03 ng/mL [place] Troponin, High Sensitivity 15 ng/L 0 - 22 ng/L [place] Comment on above: High Sensitivity Troponin [...] Eder Ledesma MD 08/25/20 Final result Normal [facility] Isaac, Mhpn Incoming Radiant Results From [facility] - 08/25/2020 8:15 AM EDT EXAMINATION: CT [...] clear. IMPRESSION: Evolving right temporal lobe infarct. [place] EXAMINATION: CT OF THE HEAD WITHOUT [...] maxillary sinus. Mastoid air cells are clear. [place] Evolving right temporal lobe infarct. [place] EKG 12 Leadon 08-25-2020 Atrial Rate 72 BPM [place] P [place] 92 degrees [place] P-R Interval 184 ms [place] Q-T Interval 458 ms [place] QRS Duration 100 ms [place] QTc Calculation (Bazett) 501 ms [place] R [place] 38 degrees [facility], [place] T [place] 67 degrees [place] Ventricular Rate 72 BPM [place], [place] Sinus rhythm with occasional Premature ventricular complexes and Premature atrial complexes Nonspecific ST and T wave abnormality Prolonged QT Abnormal ECG No previous ECGs available [place] Isaac, Mhpn Incoming Ekg Results From [facility] - 08/25/2020 11:56 AM EDT Sinus rhythm with occasional Premature ventricular complexes and Premature atrial complexes Nonspecific ST and T wave abnormality Prolonged QT Abnormal ECG No previous ECGs available [place] Echo Completeon 08-25-2020 Transthoracic Echocardiography Report (TTE) Patient Name YOGESH Date of Study 08/25/2020 DAISY Luis Enrique SR. 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 Procedure Date Date: 08/25/2020 Start: 03:58 PM Study Location: [facility] History / Tech. Comments: CVA Patient Status: Inpatient Height: 73 inches Weight: 230.01 pounds BSA: 2.28 m^2 BMI: 30.35 kg/m^2 CONCLUSIONS Summary Negative bubble study. (no right to left intra-cardiac shunt ). Left ventricle is normal in size with normal systolic function globally. Calculated ejection fraction is 60% No significant valvular regurgitation or stenosis seen. Signature FINDINGS Left Atrium Left atrium is mildly [...] Wall E' velocity:0.13 m/s Lateral Wall E/E':6 [facility] [place] [place] Isaac, Mhpn Incoming Cardio Results From [facility]/ - 08/25/2020 11:14 PM EDT Transthoracic Echocardiography Report (TTE) Patient Name YOGESH Date of Study 08/25/2020 DAISY Dudley . Date of 1940 Gender Male Age 80 year(s) Race Room Number 0526 Height: 73 inch, 185.42 cm Corporate ID [id number] Weight: 230 pounds, 104.3 kg # Patient Acct [id number] BSA: 2.28 m^2 BMI: 30.35 # kg/m^2 MR # [id number] Substation Inspector JimenezVincenty Interpreting Physician Jack Mckeon Fellow Referring Nurse Practitioner Interpreting Referring Physician Mike Murray MD Fellow Type of Study TTE procedure:2D Echocardiogram, M-Mode, Doppler, Color Doppler, Bubble Study. Procedure Date Date: 08/25/2020 Start: 03:58 PM Study Location: [facility] History / Tech. Comments: CVA Patient Status: Inpatient Height: 73 inches Weight: 230.01 pounds BSA: 2.28 m^2 BMI: 30.35 kg/m^2 CONCLUSIONS Summary Negative bubble study. (no right to left intra-cardiac shunt ). Left ventricle is normal in size with normal systolic function globally. Calculated ejection fraction is 60% No significant valvular regurgitation or stenosis seen. Signature - - - Electronically signed by Jack Mckeon([facility]) on 08/25/2020 11:14 PM - FINDINGS [...] Wall E' velocity:0.13 m/s Lateral Wall E/E':6 [place] [id number] 08-25-2020 SARS-CoV-2 Normal [facility] Comment on above: Performed By: #### C OVID #### [facility] [address] [place] [address] [address] Specialist: Manuelito Mckay MD SARS-CoV-2,Rapid Not Detected Normal [facility] Comment on above: Result Comment: Rapid NAAT: [...] management decisions. Fact sheet for Healthcare Providers: https://www.fda.gov/media/957963/download Fact sheet for Patients: https://www.fda.gov/media/857937/download Methodology: Isothermal Nucleic Acid Amplification Performed By: #### C OVID #### [facility] [address] [place] [address] [address] [address] Specialist: Manuelito Mckay MD COVID-19on 08-24-2020 SARS-CoV-2, Rapid Not Detected Not Detected [place] Comment on above: Rapid NAAT: The [...] management decisions. Fact sheet for Healthcare Providers: https://www.fda.gov/media/025022/download Fact sheet for Patients: https://www.fda.gov/media/444385/download Methodology: Isothermal Nucleic Acid Amplification Source .NASOPHARYNGEAL SWAB [place] CT BRAIN PERFUSIONon 020 CT BRAIN [...] Magno Luevano MD 08/24/20 Final result Normal [facility] Isaac, pn Incoming Radiant Results From [facility] - 08/24/2020 9:54 PM EDT EXAMINATION: CTA [...] hypoperfusion with no significant area of infarction. [place] 1. Large mismatch perfusion abnormality demonstrating essentially whole-brain hypoperfusion with no significant area of infarction. [place] EXAMINATION: CTA OF THE HEAD WITH [...] Mismatch volume: 493 cc Mismatch ratio: 165.3 [place], [place] CT HEAD WO CONTRASTon 2019 CT [...] Magno Luevano MD 08/24/20 Final result Normal [facility] CT Head WO Contraston 2019 EXAMINATION: CT [...] of the visualized skull or soft tissues. [facility] [place], [place] Isaac, Mhpn Incoming Radiant Results From [facility] - 08/24/2020 7:37 PM EDT EXAMINATION: CT [...] soft tissues. IMPRESSION: No acute intracranial abnormality. [place] No acute intracrania l abnormality. [place] CTA HEAD NECK W CONTRASTon 1 [...] Magno Luevano MD 08/24/20 Final result Normal [facility] Isaac, pn Incoming Radiant Results From [facility] - 08/24/2020 9:14 PM EDT EXAMINATION: CTA [...] to Dr. Santiago On 08/24/2020 at 21:04. [place] EXAMINATION: CTA OF THE HEAD AND [...] fluid collection. The huang-white differentiation is maintained. [place] Complete occlusion o f the left [...] to Dr. Santiago On 08/24/2020 at 21:04. [place] Otheron 08-24-2020 SARS-CoV-2 [place] [id number] 08-24-2020 SARS-CoV-2 Source .NASOPHARYNGEAL SWAB Normal [facility] Comment on above: Performed By: #### C OVID #### [facility] [place] [address] Court Specialist: Manuelito Mckay MD STROKE PANELon 08-24-2020 % CKMB 1.9 % 0 - 3.5 % [place] Anion gap [Moles/Vol] 13 mmol/L 9 - 17 mmol/L [place] aPTT Coag (Bld) [Time] 24.8 s [place] Comment on above: IV Heparin Therapy Range: 48.6-77.8 Basophils (Bld) [#/Vol] 0.05 10*3/uL [place] Basophils/100 WBC (Bld) 0 % 0 - 2 % [place] Bun/Cre Ratio NOT REPORTED [place] Calcium [Mass/Vol] 9.1 mg/dL 8.6 - 10. 4 mg/dL [place] Chloride [Moles/Vol] 102 mmol/L 98 - 10 7 mmol/L [place] CK.MB [Mass/Vol] COMPATIBLE WITH SKELETAL MUSCLE ORIGIN [place] CK.MB [Mass/Vol] 6 ng/mL <10.5 [place] CO2 [Moles/Vol] 25 mmol/L 20 - 31 mmol/L [place] Creatinine [Mass/Vol] 1.01 mg/dL 0.7 - 1.2 mg/dL [place] Differential Type NOT REPORTED [place] Eosinophils (Bld) [#/Vol] 0.21 10*3/uL [place] Eosinophils/100 WBC (Bld) 2 % 1 - 4 % [place] Erythrocyte distribution width (RBC) [Ratio] 13.2 % 11.8 - 14.4 % [place] GFR >60 >60 mL/min [place] GFR Non- >60 >60 mL/min [place] GFR/1.73 sq M predicted among non-blacks MDRD (S/P/Bld) [Vol rate/Area] NOT REPORTED [place] GFR/1.73 sq M predicted among non-blacks MDRD (S/P/Bld) [Vol rate/Area] [place] Comment on above: Average GFR for 70 o r more years old: 75 mL/min/1.73sq m Chronic Kidney Disease: <60 mL/min/1.73sq m Kidney failure: <15 mL/min/1.73sq m eGFR calculated using average adult body mass. Additional eGFR calculator available at: http://www.[employer]/multiple_crcl_2012.htm Glucose [Mass/Vol] 134 mg/dL High 70 - 99 mg/dL [place] Hematocrit (Bld) [Volume fraction] 48.3 % 40.7 - 50.3 % [place] Hemoglobin (Bld) [Mass/Vol] 16.0 g/dL 13 - 17 g/dL [place] Immature granulocytes (Bld) [#/Vol] 0 % 0 [place] Immature granulocytes (Bld) [#/Vol] 0.05 10*3/uL [place] INR Coag (PPP) [Relative time] 0.9 {INR} [place] Comment on above: Therapeutic Range: Moderate Anticoagulant Intensity: INR = 2.0-3.0 High Anticoagulant Intensity: INR = 2.5-3.5 Interpretation and review of laboratory results Abnormal [place] Lymphocytes (Bld) [#/Vol] 4.55 10*3/uL High [place] Lymphocytes/100 WBC (Bld) 38 % 24 - 43 % [place] MCH (RBC) [Entitic mass] 31.9 pg 25.2 - 33.5 pg [place] MCHC (RBC) [Mass/Vol] 33.1 g/dL 28.4 - 34.8 g/dL [place] MCV (RBC) [Entitic vol] 96.4 fL 82.6 - 102.9 fL [place] Monocytes (Bld) [#/Vol] 1.00 10*3/uL [place] Monocytes/100 WBC (Bld) 8 % 3 - 12 % [place] Myoglobin [Mass/Vol] 49 ng/mL 28 - 72 ng/mL [place] Platelet mean volume (Bld) [Entitic vol] 11.6 fL 8.1 - 13.5 fL [place] Platelets (Bld) [#/Vol] 241 10*3/uL [place] Platelets (Bld) [#/Vol] NOT REPORTED [place] Potassium [Moles/Vol] 3.6 mmol/L Low 3.7 - 5.3 mmol/L [place] PT Coag (PPP) [Time] 9.9 s [place] RBC (Bld) [#/Vol] 5.01 10*6/uL 4.21 - 5.7 7 m/uL [place] RBC morphology finding Nom (Bld) NOT REPORTED [place] Segmented neutrophils/100 WBC (Bld) 52 % 36 - 65 % [place] Segs Absolute 6.14 [place] Sodium [Moles/Vol] 140 mmol/L 135 - 144 mmol/L [place] Total CK 314 U/L High 39 - 308 U/L [place] Troponin I.cardiac [Mass/Vol] NOT REPORTED [place] Troponin T.cardiac [Mass/Vol] NOT REPORTED <0.03 ng/mL [place] Troponin, High Sensitivity 15 ng/L 0 - 22 ng/L [place] Comment on above: High Sensitivity Troponin values cannot be compared with other Troponin methodologies. Patients with high levels of Biotin oral intake (i.e >5mg/day) may have falsely decreased Troponin levels. Samples collected within 8 hours of biotin intake may require additional information for diagnosis. Urea nitrogen [Mass/Vol] 10 mg/dL 8 - 23 mg/dL [place] WBC (Bld) [#/Vol] 12.0 10*3/uL High [place] WBC (Bld) [#/Vol] 0.0 10*3/uL 0.0 per 10 0 WBC [place] WBC Morphology NOT REPORTED [place] Stroke Panelon 08-24-2020 % CKMB 1.9 % Normal 0.0-3.5 [facility] Comment on above: Performed By: #### S YENNI #### [facility] [address] [place], [place] [id number] Court Specialist: Manuelito Mckay MD (cont.) Normal [facility] Comment on above: Result Comment: Aver age GFR for 70 or more years old: 75 mL/min/1.73sq m Chronic Kidney Disease: <60 mL/min/1.73sq m Kidney failure: <15 mL/min/1.73sq m eGFR calculated using average adult body mass. Additional eGFR calculator available at: http://www.[employer]/multiple_crcl_2012.htm Performed By: #### S EBKE #### [address] [address] [address] Specialist: Manuelito Mckay MD Anion gap [Moles/Vol] 13 mmol/L Normal 9-17 [facility] Comment on above: Performed By: #### S TROKE #### [address] [address] [address] Specialist: Manuelito Mckay MD Calcium [Mass/Vol] 9.1 mg/dL Normal 8.6-10.4 [facility] Comment on above: Performed By: #### S TROKE #### [address] [address] [address] Specialist: Manuelito Mckay MD Chloride [Moles/Vol] 102 mmol/L Normal 98-107 [facility] Comment on above: Performed By: #### S TROKE #### [address] [address] [address] Specialist: Manuelito Mckay MD CK [Catalytic activity/Vol] 314 U/L High 39-308 [facility] Comment on above: Performed By: #### S TROKE #### [address] [address] [address] Specialist: Manuelito Mckay MD CK.MB [Mass/Vol] COMPATIBLE WITH SKELETAL MUSCLE ORIGIN Normal [facility] Comment on above: Performed By: #### S TROKE #### [address] [address] [address] Specialist: Manuelito Mckay MD CO2 [Moles/Vol] 25 mmol/L Normal 20-31 [facility] Comment on above: Performed By: #### S EBKE #### [facility] [address] [place] [address] [address] [address] Specialist: Manuelito Mckay MD Creatinine [Mass/Vol] 1.01 mg/dL Normal 0.70-1.20 [facility] Comment on above: Performed By: #### S EBKE #### [facility] [address] [place] [address] [address] Specialist: Manuelito Mckay MD GFR, Amer >60 Normal >60 [facility] Comment on above: Performed By: #### S YENNI #### [address] [address] [address] Specialist: Manuelito Mckay MD GFR,non Amer >60 Normal >60 [facility] Comment on above: Performed By: #### S YENNI #### [address] [address] [address] Specialist: Manuelito Mckay MD Glucose [Mass/Vol] 134 mg/dL High 70-99 [facility] Comment on above: Performed By: #### S EBKE #### [address] [address] [address] Specialist: Manuelito Mckay MD Potassium [Moles/Vol] 3.6 mmol/L Low 3.7-5.3 [facility] Comment on above: Performed By: #### S EBKE #### [facility] [address] [place] [address] [address] [address] Specialist: Manuelito Mckay MD Sodium [Moles/Vol] 140 mmol/L Normal 135-144 [facility] Comment on above: Performed By: #### S EBKE #### [facility] [address] [place] [address] [address] Specialist: Manuelito Mckay MD Urea nitrogen [Mass/Vol] 10 mg/dL Normal 8-23 [facility] Comment on above: Performed By: #### S YENNI #### [facility] [address] [place] [address] [address] [address] Specialist: Manuelito Mckay MD CK-MB,Quantitative 6.0 ng/mL Normal <10.5 [facility] Comment on above: Performed By: #### S YENNI #### [facility] [address] [place] [address] [address] Specialist: Manuelito Mckay MD Myoglobin [Mass/Vol] 49 ng/mL Normal 28-72 [facility] Comment on above: Performed By: #### S YENNI #### [facility] [address] [place] [address] [address] Specialist: Manuelito Mckay MD Troponin, High Sens 15 ng/L Normal 0-22 [facility] Comment on above: Result Comment: High Sensitivity Troponin values cannot be compared with other Troponin methodologies. Patients with high levels of Biotin oral intake (i.e >5mg/day) may have falsely decreased Troponin levels. Samples collected within 8 hours of biotin intake may require additional information for diagnosis. Performed By: #### S YENNI #### [address] [address] [address] Specialist: Manuelito Mckay MD aPTT Coag (Bld) [Time] 24.8 s Normal 20.5-30.5 [facility] Comment on above: Result Comment: IV Heparin Therapy Range: 48.6-77.8 Performed By: #### S YENNI #### [address] [address] [address] Specialist: Manuelito Mckay MD INR Coag (PPP) [Relative time] 0.9 {INR} Normal [facility] Comment on above: Result Comment: Therapeutic Range: Moderate Anticoagulant Intensity: INR = 2.0-3.0 High Anticoagulant Intensity: INR = 2.5-3.5 Performed By: #### S TROKE #### [address] [address] [address] Specialist: Manuelito Mckay MD PT Coag (PPP) [Time] 9.9 s Normal 9.0-12.0 [facility] Comment on above: Performed By: #### S EBKE #### [address] [address] [address] Specialist: Manuelito Mckay MD Abs. Basophil 0.05 k/uL Normal 0.00-0.20 [facility] Comment on above: Performed By: #### S YENNI #### [address] [address] [address] Specialist: Manuelito Mckay MD Abs.Imm.Granulocyte 0.05 k/uL Normal 0.00-0.30 [facility] Comment on above: Performed By: #### S YENNI #### [address] [address] [address] Specialist: Manuelito Mckay MD Abs.Neutrophil (Seg) 6.14 k/uL Normal 1.50-8.10 [facility] Comment on above: Performed By: #### S EBKE #### [address] [address] [address] Specialist: Manuelito Mckay MD Basophils/100 WBC (Bld) 0 % Normal 0-2 [facility] Comment on above: Performed By: #### S EBKE #### [address] [address] [address] Specialist: Manuelito Mckay MD Eosinophils (Bld) [#/Vol] 0.21 10*3/uL Normal 0.00-0.44 [facility] Comment on above: Performed By: #### S EBKE #### [place] [address] Court Specialist: Manuelito Mckay MD Eosinophils/100 WBC (Bld) 2 % Normal 1-4 [facility] Comment on above: Performed By: #### S EBKE #### [address] [address] [address] Specialist: Manuelito Mckay MD Erythrocyte distribution width (RBC) [Ratio] 13.2 % Normal 11.8-14.4 [facility] Comment on above: Performed By: #### S YENNI #### [address] [address] [address] Specialist: Manuelito Mckay MD Hematocrit (Bld) [Volume fraction] 48.3 % Normal 40.7-50.3 [facility] Comment on above: Performed By: #### S YENNI #### [address] [address] [address] Specialist: Manuelito Mckay MD Hemoglobin (Bld) [Mass/Vol] 16.0 g/dL Normal 13.0-17.0 [facility] Comment on above: Performed By: #### S YENNI #### [address] [address] [address] Specialist: Manuelito Mckay MD Immature granulocytes (Bld) [#/Vol] 0 % Normal 0 [facility] Comment on above: Performed By: #### S EBKE #### [address] [address] [address] Specialist: Manuelito Mckay MD Lymphocytes (Bld) [#/Vol] 4.55 10*3/uL High 1.10-3.70 [facility] Comment on above: Performed By: #### S EBKE #### [address] [address] [address] Specialist: Manuelito Mckay MD Lymphocytes/100 WBC (Bld) 38 % Normal 24-43 [facility] Comment on above: Performed By: #### S EBKE #### [address] [address] [address] Specialist: Manuelito Mckay MD MCH (RBC) [Entitic mass] 31.9 pg Normal 25.2-33.5 [facility] Comment on above: Performed By: #### S YENNI #### [address] [address] [address] Specialist: Manuelito Mckay MD MCHC (RBC) [Mass/Vol] 33.1 g/dL Normal 28.4-34.8 [facility] Comment on above: Performed By: #### S YENNI #### [address] [address] [address] Specialist: Manuelito Mckay MD MCV (RBC) [Entitic vol] 96.4 fL Normal 82.6-102.9 [facility] Comment on above: Performed By: #### S YENNI #### [address] [address] [address] Specialist: Manuelito Mckay MD Monocytes (Bld) [#/Vol] 1.00 10*3/uL Normal 0.10-1.20 [facility] Comment on above: Performed By: #### S YENNI #### [address] [address] [address] Specialist: Manuelito Mckay MD Monocytes/100 WBC (Bld) 8 % Normal 3-12 [facility] Comment on above: Performed By: #### S YENNI #### [address] [address] [address] Specialist: Manuelito Mckay MD Neutrophil (Seg) 52 % Normal 36-65 [facility] Comment on above: Performed By: #### S YENNI #### [address] [address] [address] Specialist: Manuelito Mckay MD NRBC Automated 0.0 per 100 WBC Normal 0.0 [facility] Comment on above: Performed By: #### S TROKE #### [address] [address] [address] Specialist: Manuelito Mckay MD Platelet mean volume (Bld) [Entitic vol] 11.6 fL Normal 8.1-13.5 [facility] Comment on above: Performed By: #### S TROKE #### [address] [address] [address] Specialist: Manuelito Mckay MD Platelets (Bld) [#/Vol] 241 10*3/uL Normal 138-453 [facility] Comment on above: Performed By: #### S EBKE #### [address] [address] [address] Specialist: Manuelito Mckay MD RBC (Bld) [#/Vol] 5.01 10*6/uL Normal 4.21-5.77 [facility] Comment on above: Performed By: #### S TROKE #### [address] [address] [address] Specialist: Manuelito Mckay MD WBC (Bld) [#/Vol] 12.0 10*3/uL High 3.5-11.3 [facility] Comment on above: Performed By: #### S TROKE #### [address] [address] [address] Specialist: Manuelito Mckay MD Auto Diff Performed NOT REPORTED Normal [facility] Comment on above: Performed By: #### S TROKE #### [address] [address] [address] Specialist: Manuelito Mckay MD BUN/CRE Ratio NOT REPORTED Normal 9-20 [facility] Comment on above: Performed By: #### S EBKE #### [facility] [place] [address] Court Specialist: Manuelito Mckay MD Platelets (Bld) [#/Vol] NOT REPORTED Normal [facility] Comment on above: Performed By: #### S EBKE #### [facility] [address] [place] [address] [address] [address] Specialist: Manuelito Mckay MD RBC morphology finding Nom (Bld) NOT REPORTED Normal [facility] Comment on above: Performed By: #### S EBKE #### [facility] [address] [place] [address] [address] [address] Specialist: Manuelito Mckay MD Staging: NOT REPORTED Normal [facility] Comment on above: Performed By: #### S YENNI #### [address] [address] [address] Specialist: Manuelito Mckay MD Troponin I.cardiac [Mass/Vol] NOT REPORTED Normal [facility] Comment on above: Performed By: #### S YENNI #### [address] [address] [address] Specialist: Manuelito Mckay MD Troponin T.cardiac [Mass/Vol] NOT REPORTED Normal <0.03 [facility] Comment on above: Performed By: #### S EBKE #### [facility] [address] [place] [address] [address] [address] Specialist: Manuelito Mckay MD WBC Morphology NOT REPORTED Normal [facility] Comment on above: Performed By: #### S EBKE #### [facility] [address] [place] [address] [address] [address] Specialist: Manuelito Mckay MD Vital Signs Date Time Vital Sign Value Performing Clinician Poppy galloway 04-24-2024 09:16-0400 Body height 182.88 cm [facility] Work Phone: [facility] 04-24-2024 09:16-0400 Body mass index (BMI) [Ratio] 31.4 kg/m2 [facility] Work Phone: [facility] 04-24-2024 09:16-0400 Body temperature 99.3 [degF] [facility] Work Phone: [facility] 04-24-2024 09:16-0400 Body weight 104.94 kg [facility] Work Phone: [facility] 04-24-2024 09:16-0400 Diastolic blood pressure 72 mm[Hg] [facility] Work Phone: [facility] 04-24-2024 09:16-0400 Heart rate 88 /min [facility] Work Phone: [facility] 04-24-2024 09:16-0400 Respiratory rate 18 /min [facility] Work Phone: [facility] 04-24-2024 09:16-0400 SaO2% (BldA) [Mass fraction] 92 % [facility] Work Phone: [facility] 04-24-2024 09:16-0400 Systolic blood pressure 109 mm[Hg] [facility] Work Phone: [facility] 08-26-2020 14:02-0400 BP Diastolic 76 mm[Hg] [place] 08-26-2020 14:02-0400 BP Systolic 124 mm[Hg] [place] 08-26-2020 14:02-0400 Pulse (Heart Rate) 61 /min [place] 08-26-2020 14:02-0400 Pulse Oximetry 91 % [place] 08-26-2020 14:02-0400 Respiratory Rate 20 /min [place], [place] 08-26-2020 12:02-0400 Body Temperature 98.2 [degF] [place] 08-24-2020 20:09-0400 BMI (Body Mass Index) 30.34 kg/m2 Harjinder Bray [facility], [place] 08-24-2020 20: Body weight 104.33 kg [facility] , [place] 08-24-2020 20: Height 185.4 cm Harjinder Bray [facility] , [place] Encounters Encounter Date Encounter Type Care Provider Facility Start: 04-24-2024 End: 04-24-2024 ambulatory Outreach [facility] Work Phone: [facility] Work Phone: Start: 04-24-2024 End: 04-24-2024 Patient encounter procedure Outreach [facility] Work Phone: [facility] Work Phone: Start: 10-20-2023 End: 10-20-2023 ambulatory [facility] Start: 10-08-2023 End: 10-08-2023 ambulatory [facility] Start: 09-01-2023 End: 10-08-2023 ambulatory [facility] Start: 08-14-2023 End: 08-14-2023 ambulatory [facility] Start: 02-12-2023 End: 02-13-[address] JESSICA DELATORRE . Facility: Start: 08-24-2020 End: 08-26-2020 Evaluation and management of inpatient VIVIANE SANTIAGO [facility] Start: 08-24-2020 End: 08-26-2020 Evaluation and management of inpatient Harjinder Gottlieb Work Phone: [phone] Comment on above: Cerebrovascular acci dent (CVA), unspecified mechanism (HCC) (Primary Dx) Procedures Date Procedure Procedure Detail Performing Clinician Start: 04-24-2024 Plain chest X-ray [facility] Work Phone: Start: 02-12-[address] TELLY DELATORRE . Comment on above: Performed By: #### [facility] #### [facility] [address] [address] [address] Rebel Victoria Start: 08-26-2020 DISCHARGE PATIENT VIVIANE CHIRRI Start: 08-26-2020 Basic metabolic pane l calcium total VIVIANE CHIRRI Start: 08-26-2020 Blood count complete auto&auto difrntl wbc VIVIANE CHIRRI Start: 08-26-2020 INCENTIVE SPIROMETRY RT VIVIANE CHIRRI Start: 08-26-2020 INITIATE OXYGEN THER APY PROTOCOL VIVIANE CHIRRI Start: 08-26-2020 Basic metabolic pane l calcium total Mera Hallie Mooney Work Phone: Start: 08-26-2020 Blood count complete auto&auto difrntl wbc Mera M Vinicio Work Phone: Start: 08-26-2020 Assay of troponin [...] r-t 2d w/wom-mode compl spec&colr d Angel L Scaff Work Phone: Start: 08-25-2020 DIET GENERAL VIVIANE [...] AL VTE PROPHYLAXIS VIVIANE CHIRRI Start: 08-25-2020 FAIRING MAN EVAL AND TREAT AGUSTIN L CHIRRI Start: [...] Ct head/brain w/o co ntrast material Parviz Anna Work Phone: Start: 08-25-2020 BEDREST VIVIANE CHIR [...] Start: 08-24-2020 Ct angiography head w/contrast/noncontrast James Cornejo Work Phone: Start: 08-24-2020 Ecg routine ecg w/le ast 12 lds i&r only James Cornejo Work Phone: Start: 08-24-2020 EKG REPORT Hpf Scanni ng Start: 08-24-2020 STROKE PANEL James Cornejo Work Phone: Start: 08-24-2020 Ct head/brain w/o co ntrast material Harjinder Gottlieb Work Phone: Plan of Treatment Date Care Activity Detail Author Start: 08-24-2020 Annual Wellness Visi t (AWV) Annual Wellness Visit (AWV) [place] Start: 07-03-2020 Influenza vaccination Flu vaccine (# 1) [place] Start: 2006 Pneumococcal 65+ yea rs Vaccine (1 of 1 - PPSV23) Pneumococcal 65+ years Vaccine (1 of 1 - PPSV23) [place] Start: 1991 Shingles Vaccine (1 of 2) Lim gles Vaccine (1 of 2) [place] Start: 1960 DTaP/Tdap/Td vaccine (1 - Tdap) DTaP/Tdap/Td vaccine (1 - Tdap) [place], [place] Start: 1951 Lipid panel Lipid screen [place], [place] Basic metabolic 2000 panel BASIC METABOLIC PANEL Lab Routine Daily until discontinued starting 08/26/2020, 1 completed [place] Comment on above: Daily until disconti nued starting 08/26/2020, 1 completed End: 08-26-2020 Continuous pulse oximetry Pulse oximetry, continuous Respiratory Care Routine Every 4hr for 24 Hours starting 08/25/2020 until 08/26/2020 [place] Comment on above: Every 4hr for 24 Rebecca rs starting 08/25/2020 until 08/26/2020 Intermittent pulse oximetry Pulse Oximetry Spot Check Respiratory Care Routine As Needed until discontinued starting 08/24/2020 [place] Comment on above: As Needed until disc ontinued starting 08/24/2020 End: 08-24-2020 IR ANGIOGRAM CAROTID C EREBRAL BILATERAL IR ANGIOGRAM CAROTID C EREBRAL BILATERAL Imaging Routine Once for 1 Occurrences starting 08/24/2020 until 08/24/2020 [place] Comment on above: Once for 1 Occurrenc es starting 08/24/2020 until 08/24/2020 IR ANGIOGRAM CAROTID C EREBRAL BILATERAL IR ANGIOGRAM CAROTID C EREBRAL BILATERAL Imaging STAT 08/24/2020 11:44 PM EDT [place] Oxygen therapy [[facility] [place]] [place] Comment on above: Daily until disconti nued starting 08/24/2020 Daily until disconti nued starting 08/25/2020 Phase I & II - meter ed glucose Phase I & II - metered glucose Point of Care Testing Routine As Needed until discontinued starting 08/24/2020 [place] Comment on above: As Needed until disc ontinued starting 08/24/2020 End: 08-25-2020 Speech and language therapy regime Speech Language Pathology (FAIRING MAN) eval and treat FAIRING MAN Routine One Time for 1 Occurrences starting 08/25/2020 until 08/25/2020 [place] Comment on above: One Time for 1 Occur rences starting 08/25/2020 until 08/25/2020 Spirometry panel Incentive estella metry Respiratory Care Routine Daily until discontinued starting 08/25/2020 [place] Comment on above: Daily until disconti nued starting 08/25/2020 Payers Date Payer Category Payer Self-pay 1958 Medicare [id number] 1940 Unknown [id number] 1940 Unknown [id number] Unknown [id number] Social History Date Type Detail Facility Start: 08-24-2020 Tobacco smoking stat [facility] Unknown if ever smoked [place], [place] Sex Assigned At Not on file [place] Exposure to SARS-CoV -2 (event) Not sure [place] Start: 04-24-2024 [facility] Start: 1940 Sex Assigned At Male F [facility] Progress note 10-20-2023 Note Date & Type Note Facility 10-20-2023 Note [facility] Consult Note Reason for visit:Placed on close TWIST TESTER to Afib/ CMP HPI: Daisy Luis Enrique Zuñiga Sr. is a 83 y.o. year [...] 100 QT Interval 370 QTC CALCULATION(BAZETT) 447 R-[place] 5 T Wave [place] 108 Impression Atrial fibrillation with premature ventricular or aberrantly conducted complexes Nonspecific ST and T wave abnormality Abnormal ECG When compared with ECG of 01-SEP-2023 10:21, No significant change Confirmed by Arash ROCHA, L.S. (2) on 10/08/2023 2:03:20 PM Echo: 10/20/23 Stress test: Coronary angiogram: 10/08/23 Hemodynamic Data: RA: 11 RV: 49/5, 10 PA: 50/23 (32) PCWP: 23 CO: 4.27 CI: 1.89 O2 Sat: PA sat: 66%, AO sat: 98% AO: 177/91 (123) TP (more content not included)... [facility] Progress note 10-20-2023 Note Date & Type Note Facility 10-20-2023 Note Patient here for latoya b management per Dr. Munguia. Had heart cath last week. Denies chest pain, SOB, and bleeding on Eliquis. Review of Systems Constitutional: Positive for malaise/fatigue. Eyes: Positive for blurred vision. All other systems reviewed and are negative. [facility] Clinical Note 10-08-2023 Note Date & Type Note Facility 10-08-2023 Note Patient: Daisy Mcmahon norberto Sr. Procedure Information Date/Time: 09/01/23 1130 Procedures: Coronary angiography (Bilateral) Carotid angiogram (Bilateral) - w/ possible intervention Location: [facility] / [facility] (Cath) Providers: Aden [...] with fellow and attending. Additional Equipment Requests [facility] Progress note 08-14-2023 Note Date & Type Note Facility 08-14-2023 Note [facility] - [facility] Subjective Daisy Zuñiga is a 83 [...] In August 2020 he was admitted to [facility] with left-sided hemiplegia and treated with tPA. [...] artery flow. LE (more content not included)... [facility] Evaluation note Note Date & Type Note Facility Evaluation note No assessment information availa ble [facility] Work Phone: Evaluation note Note Date & Type Note Facility Evaluation note Diagnosis Onset Date Bronchitis acute [facility] Work Phone: Summary Purpose Family History No Family History Records FoundNo Family History Records FoundNo Family History Records FoundNo Family History Records Found Advance Directives No Advanced Directives Records FoundLatest Code Status on File Code Status Date Activated Date Inactivated Comments Full Code 08/25/2020 7:01 AM Advance Directive Response Recorded Date/ Time Advance Directives No April 24 9:07am Hospital Course * Yvrose Hsu MD - 08/26/2020 10:38 AM EDT Neuro Critical Care Discharge Summary PATIENT NAME: Daisy Zuñiga Sr. 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 ([facility]) I63.511 Carotid stenosis, right I65.21 Left carotid artery occlusion I65.22 Nihss score 17 R29.717 HOSPITAL COURSE 80-year-old male presented with dense left-sided hemiplegia along with left- sided facial droop and right gaze preference, LK W: 1830 on 08/24 NIH: 15 when evaluated by stroke team, TPA given at 1923,tolerated well, improvement in neurological exam, transferred to Back Shoe Operator for thrombectomy -ED course: Patient was alert [...] Your Medications These medications were sent to [place], [place] - [address] [place] [address] - [phone] - F [phone] [facility] [address] aspirin 81 MG chewable tablet atorvastatin 80 [...] lines removed prior to discharge. * Lazaro Yates, OSVALDO - 08/26/2020 2:14 PM EDT Occupational Therapy Occupational Therapy Initial Assessment Date: 08/26/2020 Patient Name: Daisy Zuñiga . 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 Objective Vision: Within Functional Limits Hearing: Within [...] Movement Other Comment: Slowed LUE coordination, good gupleq-me-uoga test, only minor difficulty with FMC test [...] Plan Times per week: 3-4x AM-PAC Score [facility] Inpatient Daily Activity Raw Score: 21 (08/26/20 140) AM-[facility] Inpatient ADL T-Scale Score : 44.27 (08/26/201408) ADL Inpatient CMS 0-100% Score: 32.79 (08/26/20 140) ADL Inpatient CMS G-Code Modifier : CJ [...] AM EDT CLINICAL PHARMACY NOTE: MEDS TO [facility] Patient?: No Total # of Prescriptions Filled: 3 The following medications were delivered to the patient: Atorvastatin 80 Aspirin 81 Clopidogrel 75 Total # of Interventions Completed: 0 Time Spent (min): 60 Additional Documentation: * Lori Guerrero, PT - 08/26/2020 11:26 AM EDT Physical Therapy Facility/Department: [address] Initial Assessment NAME: Daisy Zuñiga Sr. [...] far at baseline. 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 Cognition Cognition Overall Cognitive Status: WFL Objective [...] AM-PAC Inpatient Mobility Raw Score : 24 (08/26/20 1122) AM-PAC Inpatient T-Scale Score : 61.14 (08/26/20 112) Mobility Inpatient CMS 0-100% Score: 0 (08/26/20 112) Mobility Inpatient CMS G-Code Modifier : CH (08/26/20 112) Goals Patient Goals Patient goals : Go [...] MD, PhD Stroke, Neurocritical Care & Neurointervention [facility] Stroke [facility] Electronically signed 08/26/2020 at 8:23 AM Associated [...] speaking with team. Rohit Rawls MD Office [phone]. Cell [phone] Stroke, Neurocritical Care & Neurointervention [facility] Stroke Center [facility] * Yvrose Hsu MD - 08/26/2020 7:16 AM EDT Daily Progress Note Neuro Critical Care Patient Name: Daisy Zuñiga Sr. Patient : 1940 Room/Bed: [address] [place] [address] Code Status: full code Allergies: No Known Allergies CHIEF COMPLAINT: Left-sided weakness INTERVAL HISTORY Initial Presentation (Admitted 08/24): 80-year-old male presented with dense left-sided hemiplegia along with left- sided facial droop and right gaze preference, LK W: 1830 on 08/24 NIH: 15 when evaluated by stroke team, TPA given at 1923,tolerated well, improvement in neurological exam, transferred to Back Shoe Operator for thrombectomy -ED course: Patient was alert [...] 08/25/20 2215 135/66 60 18 95 % 08/25/205 (!) 133/54 60 17 93 % 08/25/202004 [...] Yvrose Hsu MD Neuro Critical Care Pager [phone] 08/26/2020 7:16 AM Associated attestation - Mike [...] PM EDT Pt refusing lumbar xray. Per installer technician, unable to have MRI completed without lumbar xray. Patient educated. Dr. Murray and Dr. Hsu updated. * Sylvia Lynch, MORGAN - 08/25/2020 11:11 AM EDT Speech Language Pathology Facility/Department: [address] Initial Speech/Language/Cognitive Assessment NAME: Daisy Zuñiga [...] with pt who verbalized understanding. Recommendations: Requires FAIRING MAN Intervention: Yes Duration/Frequency of Treatment: 3-5x per [...] Functional Limits Verbal Sequencing: WFL Thought Organization: WFL Word Generation: WFL Prognosis: Speech Therapy Prognosis Prognosis: Good Individuals consulted Consulted and agree with results and recommendations: Patient;RN Education: Patient Education: yes Patient Education Response: Verbalizes understanding Therapy Time: Individual Concurrent Group Co-treatment Time In 956 Time Out 1009 Minutes 12 Sylvia Lynch M.S. [facility]3]-FAIRING MAN 08/25/2020 11:11 AM * Parviz Anna MD [...] MD, PhD Stroke, Neurocritical Care & Neurointervention [facility] Stroke [facility] Electronically signed 08/25/2020 at 8:23 AM Associated [...] speaking with team. Rohit Rawls MD Office [phone]. Cell [phone] Stroke, Neurocritical Care & Neurointervention [facility] Stroke Center [facility] * Yvrose Hsu MD - 08/25/2020 7:05 AM EDT Daily Progress Note Neuro Critical Care Patient Name: Daisy Zuñiga Sr. Patient : 1940 Room/Bed: [address] [place] [address] Code Status: full code Allergies: No Known Allergies CHIEF COMPLAINT: Left-sided weakness INTERVAL HISTORY Initial Presentation (Admitted 08/24): 80-year-old male presented with dense left-sided hemiplegia along with left- sided facial droop and right gaze preference, LK W: 1830 on 08/24 NIH: 15 when evaluated by stroke team, TPA given at 1923,tolerated well, improvement in neurological exam, transferred to Back Shoe Operator for thrombectomy -ED course: Patient was alert [...] (36.7 C) Oral 74 18 93 % 08/24/202349 (!) 124/57 98 F (36.7 C) Oral [...] Yvrose Hsu MD Neuro Critical Care Pager [phone] 08/25/2020 7:05 AM Associated attestation - Mike [...] mention of cerebral infarction Nihss score 17 Chief Complaint and Reason for Visit Chief Complaint sore thraot R05.9 - Cough, unspecified Chief Complaint sore thraot R05.9 - Cough, unspecified Reason for Visit Bronchitis Additional Source Comments (unrecognized sect ion and content) No Status Records FoundNo Status Records FoundNo Status Records FoundNo Status Records Found INFORMATION SOURCE (unrecogn ized section and content) DATE CREATED AUTHOR 08/30/2020 [facility] DATE CREATED AUTHOR AUTHOR'S ORGANIZ ATION 02/13/2023 [facility] DATE CREATED AUTHOR AUTHOR'S ORGANIZ ATION 11/25/2023 [facility] DATE CREATED AUTHOR AUTHOR'S ORGANIZ ATION 04/27/[address] [facility] ysician Group Reason for Visit (unrecogniz ed section and content) Reason Comments Cerebrovascular Accident Care Teams (unrecognized sec tion and content) Team Status: Active Member Role Status Dates [facility] Primary Care Provider Active Team Status: Inactive Member Role Status Dates Elisabeth Diaz APRN Attending Provider Active S tart: April 24, 2024 End: April 24, 2024 [facility] Primary Care Provider Active Start: April 24, 2024 End: April 24, 2024 Team Status: Active Member Role Status Dates [facility] Primary Care Provider Active Start: April 24, 2024 Elisabeth Diaz APRN Attending Provider Active S tart: April 24, 2024 Team Status: Inactive Member Role Status Dates [facility] Primary Care Provider Active Start: April 24, 2024 End: April 24, 2024 Elisabeth Diaz APRN Attending Provider Active S tart: April 24, 2024 End: April 24, 2024 Goals (unrecognized section and content) Goals may be documented in a n alternate sectionGoals may be documented in an alternate section FOR RECORDS PERTAINING TO PATIENTS WHO ARE [...] BE BASED ON THE PRIMARY CLINICAL RECORDS. [facility]. provides no warranty or guarantee of the accuracy or completeness of information in this document.
[2024-10-25 09:43] LABS: Anion Gap 11.8; BUN Creatinine Ratio 12.3; Calcium 8.5 mg/dL (8.5-10.1); Carbon Dioxide 30.8 mmol/L (21.0-32.0); Chloride 107 mmol/L (98-107); Estimated GFR (African America >60 (>=60 mL/min/1.73m^2); Estimated GFR (Non-African Ame 53 (>=60 mL/min/1.73m^2); Free T3 2.33 pg/mL (2.18-3.98); Glucose 99 mg/dL (74-106); Potassium 3.6 mmol/L (3.5-5.1); Sodium 146 mmol/L (136-145); Thyroid Stimulating Hormone 9.389 uIU/mL (0.358-3.740)
[2024-10-25 11:10] LABS: Free T4 0.97 ng/dL (0.76-1.46)
== END 2024-10-25 08:19 | disposition home or self-care (01) ==
LOC: LAB 08:19
PROVIDERS: PCP Family Medicine; Visit Provider Family Medicine
DX: E03.9 Hypothyroidism, unspecified (principal); N28.9 Disorder of kidney and ureter, unspecified
CPT/HCPCS: 36415; 80048; 84439; 84443; 84481